=== PATIENT | male | born 1930 | race Caucasian/White ===

== ENCOUNTER 2016-11-26 16:31 | Inpatient (IN) | payer MEDICARE ==
[~2016-11-26] VITALS: Ht 175.3 cm; Wt 80.0 kg
[2016-11-26] VITALS (25 sets, daily range): BP systolic 75–183; BP diastolic 43–94; PULSE 74–157; RESP 12–35; TEMP 98.1–104.1; O2SAT 85–100
[2016-11-26] MEDS ORDERED: DILTIAZEM HCL 25 MG/5 ML VIAL ONE (16:36)
[2016-11-26] MEDS ORDERED: PROPOFOL 1000 MG/100 ML INJ 100 ML ONE (16:47)
[2016-11-26 17:17] LABS: AUTOMATED NEUTROPHIL # 11.8 TH/MM3 (1.8-7.7); BASOPHIL # 0.2 TH/MM3 (0-0.2); BASOPHIL % 0.9 % (0.0-2.0); EOSINOPHIL # 0.1 TH/MM3 (0-0.4); EOSINOPHIL % 0.4 % (0.0-4.0); HEMO FLAGS DIFF FINAL; LYMPH % 17.9 % (9.0-44.0); MEAN CELL VOLUME 100.6 FL (80.0-100.0); MEAN CORPUSCULAR HEMOGLOBIN 34.1 PG (27.0-34.0); MEAN CORPUSCULAR HGB CONC 33.9 % (32.0-36.0); MONO % 10.9 % (0.0-8.0); NEUT % 69.9 % (16.0-70.0); PLATELET COUNT 204 TH/MM3 (150-450); RED BLOOD COUNT 5.07 MIL/MM3 (4.50-5.90); RED CELL DISTRIBUTION WIDTH 13.9 % (11.6-17.2); WHITE BLOOD COUNT 16.9 TH/MM3 (4.0-11.0)
--- NOTE | 2016-11-26 17:18 | RADRPT ---
EXAM DATE/TIME: 11/26/2016 16:50 [facility] COMPARISON: No previous studies available for comparison. INDICATIONS : Chest pain, status post intubation MEDICAL HISTORY : None. SURGICAL HISTORY : None. ENCOUNTER: Initial ACUITY: 1 day PAIN SCORE: Non-responsive. LOCATION: Bilateral chest FINDINGS: 2 AP supine portable views of the chest were obtained and demonstrate an endotracheal tube in place w ith the tip approximately 5 cm above the alden. There is mild hazy opacity in both lung bases with n o focal consolidation or effusion. The heart size is within normal limits. There are mild atheroscler otic changes in the aorta. CONCLUSION: 1. Endotracheal tube in place. 2. Hazy infrahilar infiltrate bilaterally. Lewis Jose MD on November 26, 2016 at 17:15 Board Certified Radiologist. This report was verified electronically.
[2016-11-26] MEDS ORDERED: LORazepam 2 MG/ML VIAL IV PUSH ONE ×3 (17:30→20:00)
[2016-11-26] MEDS ORDERED: fentaNYL DRIP 250 ML ONE (17:30)
[2016-11-26] MEDS ORDERED: VANCOMYCIN INJ 1,000 MG in SODIUM CHLOR 0.9% 250 ML INJ 250 ML IV ONE (17:30)
[2016-11-26] MEDS ORDERED: PIPERACIL-TAZO 3.375 GM PREMIX 50 ML IV ONE (17:30)
[2016-11-26] MEDS ORDERED: ACETAMINOPHEN 650 MG SUPP RECTAL ONE (17:30)
[2016-11-26 17:35] LABS: APTT (PATIENT) 24.8 SEC (24.3-30.1); PROTHROMBIN TIME - PATIENT 11.4 SEC (9.8-11.6)
--- NOTE | 2016-11-26 17:40 | PD ---
HPI Chief Complaint: Respiratory Distress Time Seen by Provider: 16:46 Travel History International Travel<30 days: No Contact w/Intl Traveler<30days: No Traveled to known affect area: No History of Present Illness HPI Elderly male with PMH of PAD, COPD presents to the ED with c/o sob since 3pm today. Pt was brought in by [facility] with sob and was diaphoresis. STEMI was called by [facility] because of LBBB and unknown if it was new or not. Pt denies any chest pain but was very tachypneic. Pt was not tolerating BIPAP and HR was 150s. Cardizem 20mg IV was given and HR was down to 120s. Repeat EKG showed sinus tachycardia at 120 with LBBB. Pt was emergently intubated in the ED. Sister came by later to give more history and denies any n/v, abdominal pain, weakness or numbness. PFSH Past Medical History Medical History: Unable to Obtain Past Surgical History Surgical History: Unable to Obtain Social History Alcohol Use: No Tobacco Use: No Substance Use: No Allergies-Medications (Allergen,Severity, Reaction): Coded Allergies: No Known Allergies (Unverified , 11/26/16) Review of Systems Except as stated in HPI: all other systems reviewed are Neg Physical Exam Narrative GENERAL: Elderly male in severe distress. SKIN: Warm and diaphoretic. HEAD: Atraumatic. Normocephalic. EYES: Pupils equal and round. No scleral icterus. No injection or drainage. ENT: No nasal bleeding or discharge. Mucous membranes pink and moist. NECK: Trachea midline. No JVD. CARDIOVASCULAR: Regular rate and rhythm. No murmur appreciated. RESPIRATORY: + accessory muscle use. Pt is tachypneic, unable to speak more than a word at a time. Still feel sob after BIPAP. GASTROINTESTINAL: Abdomen soft, non-tender, nondistended. No rebound tenderness or guarding. MUSCULOSKELETAL: No obvious deformities. No clubbing. No cyanosis. No edema. NEUROLOGICAL: Awake and alert. No obvious cranial nerve deficits. Data Data Last Documented VS Vital Signs Date Time Temp Pulse Resp B/P Pulse Ox O2 Delivery O2 Flow Rate FiO2 11/26/16 18:45 83 18 91/55 98 Ventilator 11/26/16 17:19 104.1 11/26/16 16:50 100 Orders Diltiazem Inj (Cardizem Inj) (11/26/16 16:36) Propofol 1000 Mg/100 Ml Inj (Diprivan 10 (11/26/16 16:47) Electrocardiogram (11/26/16 16:48) Basic Metabolic Panel (Bmp) (11/26/16 16:48) Ckmb (Isoenzyme) Profile (11/26/16 16:48) Complete Blood Count With Diff (11/26/16 16:48) Magnesium (Mg) (11/26/16 16:48) Prothrombin Time / Inr (Pt) (11/26/16 16:48) Act Partial Throm Time (Ptt) (11/26/16 16:48) Troponin I (11/26/16 16:48) Chest, Single Ap (11/26/16 16:48) Ecg Monitoring (11/26/16 16:48) Bilateral Bp Monitoring (11/26/16 16:48) Iv Access Insert/Monitor (11/26/16 16:48) Oximetry (11/26/16 16:48) Oxygen Administration (11/26/16 16:48) B-Type Natriuretic Peptide (11/26/16 16:53) Blood Culture (11/26/16 16:53) Lactic Acid Sepsis Protocol (11/26/16 16:53) Neurological Rass Scale Q30MX2,Q2HX4,Q4H (11/26/16 17:28) Fentanyl Drip (Fentanyl Drip) (11/26/16 17:30) Lorazepam Inj (Ativan Inj) (11/26/16 17:30) Vancomycin Inj (Vancomycin Inj) (11/26/16 17:30) Piperacil-Tazo 3.375 Gm Premix (Zosyn 3. (11/26/16 17:30) Acetaminophen Supp (Tylenol Supp) (11/26/16 17:30) Fentanyl Drip (Fentanyl Drip) (11/26/16 17:30) Sodium Chlor 0.9% 1000 Ml Inj (Ns 1000 M (11/26/16 17:45) Sodium Chlor 0.9% 1000 Ml Inj (Ns 1000 M (11/26/16 17:45) Arterial Blood Gas (Abg) (11/26/16 17:45) CKMB (11/26/16 16:40) CKMB% (11/26/16 16:40) Norepinephrine Inj (Levophed Inj) (11/26/16 17:47) Ed Poc Ultrasound (11/26/16 ) Sodium Chloride 0.9% Flush (Ns Flush) (11/26/16 21:00) Sodium Chloride 0.9% Flush (Ns Flush) (11/26/16 17:45) Aspirin (Aspirin) (11/26/16 20:00) Aspirin Ec (Ecotrin Ec) (11/27/16 09:00) Clopidogrel (Plavix) (11/26/16 17:45) Clopidogrel (Plavix) (11/27/16 09:00) Heparin Infusion DIAMANTE.Q1H (11/26/16 17:43) Heparin Inj (Heparin Inj) (11/26/16 23:45) Heparin Inj (Heparin Inj) (11/26/16 23:45) Heparin-D5w Inj (Heparin-D5w Inj) (11/26/16 17:45) Act Partial Throm Time (Ptt) (11/26/16 17:43) Cbc No Diff, Includes Plts (11/26/16 17:43) Cbc No Diff, Includes Plts (11/29/16 06:00) Act Partial Throm Time (Ptt) (11/27/16 00:43) Occult Blood (Hemoccult) Stool (11/26/16 17:43) Echo 2d Comp W/Dopp(Routine) (11/26/16 ) Electrocardiogram (11/26/16 17:02) Chest, Single Ap (11/26/16 ) Admit Order (Ed Use Only) (11/26/16 18:49) Atorvastatin (Lipitor) (11/26/16 21:00) Labs Laboratory Tests Test 11/26/16 11/26/16 16:40 17:43 White Blood Count 16.9 TH/MM3 Red Blood Count 5.07 MIL/MM3 Hemoglobin 17.3 GM/DL Hematocrit 51.0 % Mean Corpuscular Volume 100.6 FL Mean Corpuscular Hemoglobin 34.1 PG Mean Corpuscular Hemoglobin 33.9 % Concent Red Cell Distribution Width 13.9 % Platelet Count 204 TH/MM3 Mean Platelet Volume 9.3 FL Neutrophils (%) (Auto) 69.9 % Lymphocytes (%) (Auto) 17.9 % Monocytes (%) (Auto) 10.9 % Eosinophils (%) (Auto) 0.4 % Basophils (%) (Auto) 0.9 % Neutrophils # (Auto) 11.8 TH/MM3 Lymphocytes # (Auto) 3.0 TH/MM3 Monocytes # (Auto) 1.8 TH/MM3 Eosinophils # (Auto) 0.1 TH/MM3 Basophils # (Auto) 0.2 TH/MM3 CBC Comment DIFF FINAL Differential Comment Prothrombin Time 11.4 SEC Prothromb Time International 1.0 RATIO Ratio Activated Partial 24.8 SEC Thromboplast Time Sodium Level 139 MEQ/L Potassium Level 3.5 MEQ/L Chloride Level 100 MEQ/L Carbon Dioxide Level 24.2 MEQ/L Anion Gap 15 MEQ/L Blood Urea Nitrogen 17 MG/DL Creatinine 1.56 MG/DL Estimat Glomerular Filtration 39 ML/MIN Rate Random Glucose 248 MG/DL Lactic Acid Level 6.0 mmol/L Calcium Level 9.1 MG/DL Magnesium Level 2.3 MG/DL Total Creatine Kinase 134 U/L Creatine Kinase MB 8.5 NG/ML Troponin I 2.02 NG/ML B-Type Natriuretic Peptide 458 PG/ML Blood Gas Puncture Site RT RADIAL Blood Gas Patient Temperature 98.6 Blood Gas HCO3 19 mmol/L Blood Gas Base Excess -5.7 mmol/L Blood Gas Oxygen Saturation 95 % Arterial Blood pH 7.31 Arterial Blood Partial 39 mmHg Pressure CO2 Arterial Blood Partial 129 mmHG Pressure O2 Arterial Blood Oxygen Content 20.6 Vol % Arterial Blood 2.1 % Carboxyhemoglobin Arterial Blood Methemoglobin 1.9 % Blood Gas Hemoglobin 15.3 G/DL Oxygen Delivery Device VENTILATOR Blood Gas Ventilator Setting PRVC/AC Blood Gas Inspired Oxygen 100 % MDM Medical Decision Making Medical Screen Exam Complete: Yes Emergency Medical Condition: Yes Differential Diagnosis Sepsis secondary to PNA vs. ACS Narrative Course Elderly male came in diaphoretic and in severe sob. Pt not tolerating BIPAP and HR was in the 150s which decreased with cardizem 20mg IV. Pt still very sob after decreased in heart rate. Coarse breath sounds bilaterally. Pt emergently intubated. Rectal temp was 104F and pt given NS IVF which decreased HR and we can see that it is sinus after the decreased. STEMI alert called by [facility] because of LBBB that we dont know is new or not. Discussed with Dr. Hassan who came to evaluate the patient. Labs reviewed, leukocytosis at 16.9. Lactic acid at 6.0. Troponin elevated at 2.02, can be from sepsis or NSTEMI. Dr. Hassan recommended plavix, aspirin and heparin drip which he ordered. Pt's blood pressure was low at 70s/40s while receiving 2 liters of NS so central line placed in right IJ and NE started. BP improved after NE. Pt given broad spectrum antibiotics vancomycin and zosyn and NS IVF x3. Discussed with Dr. Driver and accepted to ICU. Repeat CXR after central line placement showed IJ in tip of superior vena cava. No PTX. Critical Care Narrative Aggregate critical care time was 60 minutes. Time to perform other separately billable procedures was not included in the critical care time. My time did not include minutes spent treating any other patients simultaneously or on activities that did not directly contribute to the patient's treatment. The services I provided to this patient were to treat and/or prevent clinically significant deterioration that could result in: cardiovascular collapse or . I provided critical care services requiring my management, as noted below: Chart data review, documentation time, medication orders and management, vital sign assessments/reviewing monitor data, ordering and reviewing lab tests, ordering and interpreting/reviewing x-rays and diagnostic studies, care of the patient and discussion of the patient with the admitting physicians. Procedures Procedure Narrative CENTRAL VENOUS LINE: The site was prepped with Betadine and sterilely draped. It was infiltrated with 1% lidocaine plain. The deep vein was cannulated using normal Seldinger technique. A triple lumen central line was placed in the right IJ site and secured with stat lock. The site was sterilely dressed. The patient tolerated the procedure well. The patient was put in optimal position for the procedure. Rapid sequence intubation was initiated by me using 20 milligrams of etomidate IV and 150milligrams of succinylcholine IV. The patient was intubated with a 7.5 cuffed endotracheal tube. Tube placement was confirmed by visualization of the tube and balloon passing through the cords, capnometry and subsequent chest x-ray. Breath sounds were equal and well aerated bilaterally postintubation. No breath sounds over stomach. Patient tolerated procedure well. Diagnosis Primary Impression: Septic shock Admitting Information Admitting Physician Requests: Marisa Rodríguez DO Nov 26, 2016 17:40
[2016-11-26 17:42] LABS: ANION GAP 15 MEQ/L (5-15); BICARBONATE 24.2 MEQ/L (21.0-32.0); BLOOD UREA NITROGEN 17 MG/DL (7-18); CHLORIDE 100 MEQ/L (98-107); CREATINE KINASE 134 U/L (39-308); GLOMERULAR FILTRATION RATE 39 ML/MIN (>89); MAGNESIUM 2.3 MG/DL (1.5-2.5); SODIUM (NA) 139 MEQ/L (136-145)
[2016-11-26 17:45] LABS: POTASSIUM 3.5 MEQ/L (3.5-5.1)
[2016-11-26] MEDS ORDERED: CLOPIDOGREL 300 MG TAB PO SCH (17:45)
[2016-11-26] MEDS ORDERED: SODIUM CHLORIDE 0.9% FLUSH 5 ML FLUSH IVF PRN (17:45)
[2016-11-26] MEDS ORDERED: SODIUM CHLOR 0.9% 1000 ML INJ 1,000 ML IV ONE ×3 (17:45→20:00)
[2016-11-26] MEDS ORDERED: NOREPINEPHRINE 4 MG/4 ML AMP ONE (17:47)
[2016-11-26 17:48] LABS: BLOOD GAS BASE EXCESS -5.7 mmol/L (-2-2); BLOOD GAS CARBOXYHEMOGLOBIN 2.1 % (0-4); BLOOD GAS HCO3 19 mmol/L (22-26); BLOOD GAS METHEMOGLOBIN 1.9 % (0-2); BLOOD GAS O2 HGB SATURATION 95 % (90-100); BLOOD GAS OXYGEN CONTENT 20.6 Vol % (12.0-20.0); BLOOD GAS PCO2 39 mmHg (38-42); BLOOD GAS PO2 129 mmHG (61-120); BLOOD GAS TOTAL HGB 15.3 G/DL (12.0-16.0); CRITICAL VALUE NO; OXYGEN DEVICE VENTILATOR; TEMP CORR TO 98.6
[2016-11-26 17:49] LABS: DRAW SITE RT RADIAL; FIO2 100 %; NUMBER OF ARTERIAL PUNCTURES 1; STAT YES; ULNAR PULSE PRESENT; VENT SETTINGS PRVC/AC
[2016-11-26 17:58] LABS: CKMB 8.5 NG/ML (0.5-3.6)
[2016-11-26] MEDS: SODIUM CHLOR 0.9% 1000 ML INJ 1,000 ML IV SCH (18:51)
[2016-11-26] MEDS ORDERED: CHLORHEXIDINE GLUCONATE 2 % 1 PACK (2 CLOTHS) TOP PRN (19:00)
[2016-11-26] MEDS ORDERED: ACETAMINOPHEN 325 MG TAB PO PRN (19:00)
[2016-11-26] MEDS ORDERED: PROPOFOL 1000 MG/100 ML INJ 100 ML IV SCH (19:00)
[2016-11-26] MEDS ORDERED: MISCELLANEOUS NURSING INFORMATION XX SCH (19:00)
[2016-11-26] MEDS ORDERED: Vancomycin Consult Pharmacy 1 EA XX SCH (19:00)
[2016-11-26] MEDS ORDERED: VANCOMYCIN INJ 1,000 MG in SODIUM CHLOR 0.9% 250 ML INJ 250 ML IV SCH (19:00)
--- NOTE | 2016-11-26 19:03 | RADRPT ---
EXAM DATE/TIME: 11/26/2016 18:27 [facility] COMPARISON: CHEST SINGLE AP, November 26, 2016, 16:50. INDICATIONS : Post central line placment. MEDICAL HISTORY : Hypertension. Aneurysm, abdominal. SURGICAL HISTORY : CABG. ENCOUNTER: Initial ACUITY: 1 day PAIN SCORE: Non-responsive. LOCATION: Bilateral chest FINDINGS: Patchy perihilar and basilar consolidation again noted. I don't see a pneumothorax. No large effusion . There is now a right IJ central venous catheter with tip in the superior vena cava. Nasogastric tube now courses into the stomach. There is an unchanged endotracheal tube with tip about 5 cm above the c geoff. CONCLUSION: 1. No nasogastric tube and right IJ central venous catheter. The internal jugular central venous cath eter has its tip in the superior vena cava. 2. Unchanged endotracheal tube tip about 5 cm above the alden. 3. Patchy airspace opacities, mainly perihilar and basilar again noted. Deuce Persaud MD on November 26, 2016 at 19:00 Board Certified Radiologist. This report was verified electronically.
[2016-11-26 19:09] LABS: LACTIC ACID GHOST NOT REPORTABLE
--- NOTE | 2016-11-26 19:13 | MB ---
cc: COLE DOS SANTOS DO DATE OF CONSULTATION: 11/26/2016. REASON FOR CONSULTATION: STEMI alert. HISTORY OF PRESENT ILLNESS: Deuce Whitley is an elderly gentleman, probably in his 80s, who presented to the [facility] Emergency Room on November 26, 2016 complaining of shortness of breath. He was originally a Deuce Brambila as he was significantly tachypneic and was placed on BiPAP and then intubated. EKG on original assessment by [facility] showed a left bundle branch block and this was called per their protocol a STEMI alert. I was called emergently to see the patient for consideration of possible S-T elevation myocardial infarction. Original EKG shows sinus tachycardia with a left bundle branch block. Repeat EKG shows sinus tachycardia with a left bundle branch block. While here, his sister showed up and she relayed some more of his history as no history was known before this. They both woke up with somewhat of a cold. He did not feel significantly short of breath all day. He never complained of fevers or chills. He did not notice chest pain at all. His sister states that the patient recently lost his . He is originally from [place], [place] and came down to get away from everything for a little while. She went out for an hour and then came back and he was struggling the chair and felt that his legs gave out. He was also significantly short of breath and at that time he called [facility] to bring him to the emergency room. On seeing him, he currently on the ventilator but starting to wake up. I did speak to him briefly and he states that he is not having any chest pain at this time. He also appears to be significantly diaphoretic and temperature taken rectally while in the room was 104. PAST MEDICAL HISTORY: (Incomplete but information obtained per the sister): 1. Peripheral artery disease. 2. COPD 3. Peripheral artery disease. 4. The patient denies any history of heart disease. PAST SURGICAL HISTORY: 1. Femoral-femoral bypass. 2. Sacral decubitus debridement. ALLERGIES: UNKNOWN AT THIS TIME. MEDICATIONS: Unknown at this time. FAMILY HISTORY: Unknown at this time. SOCIAL HISTORY: Unknown at this time. REVIEW OF SYSTEMS: Unable to obtain other than above due to the patient's condition but positive for shortness of breath, diaphoresis. Denies chest pain. PHYSICAL EXAMINATION: VITAL SIGNS: Temperature 104 (rectal), heart rate 105, blood pressure 90/51, respirations 12, pulse ox 98% on the ventilator. GENERAL: In general, the patient is awake and able to answer "yes" and "no" to simple questions while on the ventilator. HEAD, EYES, EARS, NOSE, THROAT: Extraocular muscles intact. Mucous membranes somewhat dry. ET tube in place. NECK: Neck is supple. No JVD at 45 degrees. No carotid bruits heard bilaterally. HEART: Heart is tachycardiac positive for positive first and second heart sounds with no murmurs noted at this time. LUNGS: Lungs have decreased breath sounds bilaterally with rhonchi noted. ABDOMEN: Abdomen is in the soft, nontender, nondistended. No organomegaly noted. EXTREMITIES: Show no clubbing, cyanosis or edema. Femoral pulses intact bilaterally. NEUROLOGIC: Able to move all four extremities. PSYCHOLOGIC: He was unable to determine at this time. SKIN: Hot. Diaphoretic. OSTEOPATHIC: Osteopathically, no kyphoscoliosis, lordosis or paraspinal tender points. LABORATORY FINDINGS: White blood cells 16.9, hemoglobin 17.3, hematocrit 51.0, platelets 204,000. Lactic acid 6.0. EKGS: Electrocardiogram (November 26, 2016 at 1702): Sinus tachycardia with a left bundle branch block showing no concordance or discordance concerning for ischemia. IMPRESSION: 1. Sepsis most likely from a respiratory standpoint with bilateral infiltrates 2. Fever due to sepsis. 3. Shortness of breath due to bilateral pneumonia. 4. Vent-dependent respiratory failure. 5. Left bundle branch block originally called for a STEMI alert, most likely due to possible elevated raised heart rate versus chronic in nature from degeneration of the cardioelectric system. 6. Bilateral pneumonia. 7. Peripheral artery disease. 8. COPD. RECOMMENDATIONS: 1. Supportive care per the critical care team for vent-dependent respiratory failure and sepsis. 2. Sepsis most likely due to a respiratory cause. 3. Most likely will have an elevated troponin due to sepsis. 4. We will check a 2-D echo to look at his overall left ventricular function, cardiac structure and possible valvulopathies. 5. As far as possible NSTEMI we will place him on aspirin, Plavix and heparin. At this time, we are unable to place him on beta blockade due to hypotension. Thank you for allowing me to see Deuce Whitley. If there are any questions, please do not hesitate to call. Cole PEARSON/HARMONY /5:24 PM /7:00 PM
[2016-11-26] MEDS: fentaNYL DRIP 250 ML IV SCH (19:24)
[2016-11-26] MEDS ORDERED: SODIUM BICARBONATE 8.4% INJ 50 MEQ/50 ML SYR IV PUSH ONE ×2 (19:30)
[2016-11-26] MEDS: HEPARIN-D5W INJ 250 ML IV SCH (19:53)
[2016-11-26 19:58] LABS: BLOOD GAS BASE EXCESS -2.1 mmol/L (-2-2); BLOOD GAS CARBOXYHEMOGLOBIN 2.2 % (0-4); BLOOD GAS HCO3 23 mmol/L (22-26); BLOOD GAS METHEMOGLOBIN 1.9 % (0-2); BLOOD GAS O2 HGB SATURATION 93 % (90-100); BLOOD GAS OXYGEN CONTENT 18.6 Vol % (12.0-20.0); BLOOD GAS PCO2 47 mmHg (38-42); BLOOD GAS PO2 105 mmHG (61-120); BLOOD GAS TOTAL HGB 14.1 G/DL (12.0-16.0); CRITICAL VALUE NO; OXYGEN DEVICE VENTILATOR; TEMP CORR TO 98.6
[2016-11-26 19:59] LABS: DRAW SITE LT RADIAL; FIO2 100 %; NUMBER OF ARTERIAL PUNCTURES 2; STAT NO; ULNAR PULSE Y; VENT SETTINGS PRVC 12/550/1.0IT/5+
[2016-11-26] MEDS: RESP: ALBUTEROL 2.5 MG/IPRATROPIUM 0.5 MG NEB (SCH) INH ×2 (20:00→22:57)
[2016-11-26] MEDS ORDERED: SUCCINYLCHOLINE CHLORIDE 200 MG/10 ML VIAL IV PUSH ONE (20:00)
[2016-11-26] MEDS: AZITHROMYCIN INJ 500 MG in SODIUM CHLOR 0.9% 250 ML INJ 250 ML IV SCH (20:00)
[2016-11-26] MEDS ORDERED: ETOMIDATE 20 MG/10 ML VIAL IV PUSH ONE (20:00)
[2016-11-26] MEDS ORDERED: ASPIRIN 325 MG TAB PO SCH (20:00)
[2016-11-26] MEDS: methylPREDNISolone SOD SUCC 40 MG/1 ML VIAL IV SCH (20:00)
[2016-11-26] MEDS ORDERED: DILTIAZEM HCL 25 MG/5 ML VIAL IV ONE (20:00)
--- NOTE | 2016-11-26 20:47 | HHI.HP ---
HPI Service Critical Care Medicine Primary Care Physician Non-Staff Admission Diagnosis Septic shock Diagnosis: Travel History International Travel<30 Days: No Contact w/Intl Traveler <30 Da: No Traveled to Known Affected Are: No History of Present Illness Elderly male with PAD, COPD presents to the ED with shortnes of breath since 3pm today. STEMI was called because of LBBB and unknown duration. Patient denied any chest pain but was very tachypneic. He was emergently intubated in the ED. Review of Systems ROS Unable to obtain patient is sedated and intubated Past Family Social History Allergies: Coded Allergies: No Known Allergies (Unverified , 11/26/16) Past Medical History 1. Peripheral artery disease. 2. COPD 3. The patient denies any history of heart disease. Past Surgical History 1. Femoral-femoral bypass. 2. Sacral decubitus debridement. Reported Medications Unable to obtain patient is sedated and intubated Active Ordered Medications Current Medications Medications (Trade) Dose Ordered Sig/Lopez Route PRN Reason Start Time Stop Time Status Last Admin Dose Admin Fentanyl Citrate (fentaNYL DRIP) 250 ml @ 0 mls/hr TITRATE IV 11/26/16 17:30 11/26/16 19:24 Aspirin (Aspirin) 325 mg NOW PO 11/26/16 20:00 11/27/16 19:59 Aspirin (Ecotrin Ec) 81 mg DAILY PO 11/27/16 09:00 Clopidogrel Bisulfate (Plavix) 300 mg ONCE PO 11/26/16 17:45 11/27/16 17:44 Clopidogrel Bisulfate (Plavix) 75 mg DAILY PO 11/27/16 09:00 Atorvastatin Calcium (Lipitor) 80 mg HS PO 11/26/16 21:00 Heparin Sodium (Porcine) (Heparin Inj) 5,000 units UNSCH PRN IV APTT LESS THAN 25 11/26/16 23:45 Heparin Sodium (Porcine) 2500 units 2,500 units UNSCH PRN IV APTT 25 TO 39 11/26/16 23:45 Heparin Sodium/ Dextrose 250 ml @ 0 mls/hr TITRATE IV 11/26/16 17:45 11/26/16 19:53 Piperacillin Sod/ Tazobactam Sod 100 ml @ 200 mls/hr Q6H IV 11/27/16 02:00 Azithromycin 500 mg/Sodium Chloride 250 ml @ 250 mls/hr Q24H IV 11/26/16 20:00 Pharmacy Profile Note (Vancomycin Consult Pharmacy) 0 ml @ 0 mls/hr UNSCH XX 11/26/16 19:00 Methylprednisolone Sodium Succinate 40 mg 40 mg Q12H IV 11/26/16 20:00 Sodium Chloride (NS 1000 ml Inj) 1,000 ml @ 125 mls/hr Q8H IV 11/26/16 18:51 IV Flush (NS Flush) 2 ml UNSCH PRN IV FLUSH FLUSH AFTER USING IV ACCESS 11/26/16 19:00 IV Flush (NS Flush) 2 ml BID IV FLUSH 11/26/16 21:00 Acetaminophen (Tylenol) 650 mg Q6H PRN PO PAIN 1-10 AND/OR FEVER >101F 11/26/16 19:00 Famotidine (Pepcid Inj) 20 mg Q12HR IV PUSH 11/26/16 21:00 Lorazepam (Ativan Inj) 1 mg Q1H PRN IV Agitation/Sedation 11/26/16 19:00 Artificial Tears (Tears Naturale Opth Soln) 1 drop TID EACH EYE 11/27/16 09:00 Docusate Sodium (Colace Liq) 100 mg Q12H G-TUBE 11/26/16 21:00 Miscellaneous Information 1 Q361D XX 11/26/16 19:00 Chlorhexidine Gluconate (Chlorhexidine 2% Cloth) 3 pack Taper DAILY@04 TOP 11/27/16 04:00 11/23/17 03:59 Chlorhexidine Gluconate 3 pack 3 pack UNSCH PRN TOP HYGIENIC CARE 11/26/16 19:00 Propofol (Diprivan 1000 Mg/100ml Inj) 100 ml @ 0 mls/hr TITRATE IV 11/26/16 19:00 11/26/16 19:25 Family History Unable to obtain patient is sedated and intubated Social History Unable to obtain patient is sedated and intubated Physical Exam Vital Signs Vital Signs Date Time Temp Pulse Resp B/P Pulse Ox O2 Delivery O2 Flow Rate FiO2 11/26/16 20:25 75 12 93/51 99 Ventilator 11/26/16 20:15 74 12 94/50 98 Ventilator 11/26/16 20:05 75 12 91/53 99 Ventilator 11/26/16 19:57 77 12 90/51 99 Ventilator 11/26/16 19:40 76 12 93/54 99 Ventilator 11/26/16 19:38 78 12 89/52 98 Ventilator 11/26/16 19:36 99 100 11/26/16 19:25 79 12 85/50 97 Ventilator 11/26/16 19:10 77 12 76/43 99 Ventilator 11/26/16 18:45 83 18 91/55 98 Ventilator 11/26/16 18:15 86 12 138/63 98 Ventilator 11/26/16 17:45 100 12 75/45 98 Ventilator 11/26/16 17:19 104.1 105 12 90/51 98 Ventilator 11/26/16 17:15 112 12 84/49 99 Ventilator 11/26/16 16:55 12 99 Ventilator 11/26/16 16:50 94 100 11/26/16 16:50 125 18 183/85 98 Room Air 11/26/16 16:45 30 98 CPAP 11/26/16 16:44 100 11/26/16 16:34 157 35 121/94 85 11/26/16 16:30 98 100 Laboratory Laboratory Tests Test 11/26/16 11/26/16 11/26/16 11/26/16 16:40 17:43 19:21 19:53 White Blood Count 16.9 Red Blood Count 5.07 Hemoglobin 17.3 Hematocrit 51.0 Mean Corpuscular Volume 100.6 Mean Corpuscular Hemoglobin 34.1 Mean Corpuscular Hemoglobin 33.9 Concent Red Cell Distribution Width 13.9 Platelet Count 204 Mean Platelet Volume 9.3 Neutrophils (%) (Auto) 69.9 Lymphocytes (%) (Auto) 17.9 Monocytes (%) (Auto) 10.9 Eosinophils (%) (Auto) 0.4 Basophils (%) (Auto) 0.9 Neutrophils # (Auto) 11.8 Lymphocytes # (Auto) 3.0 Monocytes # (Auto) 1.8 Eosinophils # (Auto) 0.1 Basophils # (Auto) 0.2 CBC Comment DIFF FINAL Differential Comment Prothrombin Time 11.4 Prothromb Time International 1.0 Ratio Activated Partial 24.8 Thromboplast Time Sodium Level 139 Potassium Level 3.5 Chloride Level 100 Carbon Dioxide Level 24.2 Anion Gap 15 Blood Urea Nitrogen 17 Creatinine 1.56 Estimat Glomerular Filtration 39 Rate Random Glucose 248 Lactic Acid Level 6.0 2.6 Calcium Level 9.1 Magnesium Level 2.3 Total Creatine Kinase 134 Creatine Kinase MB 8.5 Troponin I 2.02 B-Type Natriuretic Peptide 458 Blood Gas Puncture Site RT RADIAL LT RADIAL Blood Gas Patient Temperature 98.6 98.6 Blood Gas HCO3 19 23 Blood Gas Base Excess -5.7 -2.1 Blood Gas Oxygen Saturation 95 93 Arterial Blood pH 7.31 7.31 Arterial Blood Partial 39 47 Pressure CO2 Arterial Blood Partial 129 105 Pressure O2 Arterial Blood Oxygen Content 20.6 18.6 Arterial Blood 2.1 2.2 Carboxyhemoglobin Arterial Blood Methemoglobin 1.9 1.9 Blood Gas Hemoglobin 15.3 14.1 Oxygen Delivery Device VENTILATOR VENTILATOR Blood Gas Ventilator Setting PRVC/AC PRVC 12/550/1.0IT/5+ Blood Gas Inspired Oxygen 100 100 Date/Time Procedure Status Source Growth 11/26/16 16:45 Aerobic Blood Culture Received Blood Peripheral Pending 11/26/16 16:45 Anaerobic Blood Culture Received Blood Peripheral Pending Result Diagram: 11/26/16 1640 11/26/16 1640 Imaging Last 24 hours Impressions Chest X-Ray 11/26/16 1648 Signed Impressions: Service Date/Time: November 16:50 - CONCLUSION: 1. Endotracheal tube in place. 2. Hazy infrahilar infiltrate bilaterally. Lewis Jose MD Chest X-Ray 11/26/16 0000 Signed Impressions: Service Date/Time: November 18:27 - CONCLUSION: 1. No nasogastric tube and right IJ central venous catheter. The internal jugular central venous catheter has its tip in the superior vena cava. 2. Unchanged endotracheal tube tip about 5 cm above the alden. 3. Patchy airspace opacities , mainly perihilar and basilar again noted. Deuce Persaud MD Septic Shock Reassessment Lungs: Course Peripheral Pulses: Bounding Right Radial Bounding Left Radial Assessment and Plan Assessment and Plan Respiratory failure - mechanical ventilation - CXR and ABG a.m. - vent bundle Pneumonia - Zosyn/Azythro/Vanco - Pseudomonas coverage - severe COPD - f/u cultures and de-escalate per sensitivity Sepsis - due to above - broad spectrum ATB - follow up cultures - central line - Levophed to keep MAP > 65 STEMI - EKG LBBB - cardiologty appreciated - Heparin gtt - further per Card. COPD - exacerbation - i.v. steroids - Aerosols - ATB DVT/GI prophylaxis - Heparin gtt/Pepcid Critical Care: The total critical care time was 35 minutes. Time to perform other separately billable procedures was not included in the critical care time. Azael Driver MD Nov 26, 2016 20:47
[2016-11-26] MEDS: SODIUM CHLORIDE 0.9% FLUSH 5 ML FLUSH IV FLUSH SCH (21:00)
[2016-11-26] MEDS: ATORVASTATIN 80 MG TAB PO SCH (21:00)
[2016-11-26] MEDS: DOCUSATE SODIUM 100 MG/10 ML UDC G-TUBE SCH (21:00)
[2016-11-26] MEDS: FAMOTIDINE 20 MG/2 ML VIAL IV PUSH SCH (21:00)
[2016-11-26] MEDS ORDERED: SODIUM CHLORIDE 0.9% FLUSH 5 ML FLUSH IVF SCH (21:00)
[2016-11-26] MEDS ORDERED: HEPARIN SODIUM - IV 10,000 UNITS/10 ML VIAL IV PRN ×2 (23:45)
[2016-11-27] VITALS (19 sets, daily range): BP systolic 103–137; BP diastolic 52–63; PULSE 60–74; RESP 12–18; TEMP 97.6–98.7; O2SAT 95–100
[2016-11-27] MEDS ORDERED: TERBUTALINE INJ 1 MG/ML AMP SQ PRN (01:00)
[2016-11-27] MEDS: PIPERACIL-TAZO 4.5 GM PREMIX 100 ML IV SCH ×4 (01:33→21:08)
[2016-11-27] MEDS: NOREPINEPHRINE-DEXTROSE DRIP 250 ML IV SCH ×2 (01:33→09:09)
[2016-11-27] MEDS: CHLORHEXIDINE GLUCONATE 2 % 1 PACK (2 CLOTHS) TOP SCH (01:34)
[2016-11-27] MEDS: SODIUM CHLOR 0.9% 1000 ML INJ 1,000 ML IV SCH ×3 (01:34→21:07)
[2016-11-27 03:19] LABS: APTT (PATIENT) 98.6 SEC (24.3-30.1)
[2016-11-27] MEDS: RESP: ALBUTEROL 2.5 MG/IPRATROPIUM 0.5 MG NEB (SCH) INH ×5 (03:37→19:57)
[2016-11-27 04:42] LABS: AUTOMATED NEUTROPHIL # 16.5 TH/MM3 (1.8-7.7); BASOPHIL % 0.2 % (0.0-2.0); HEMATOCRIT 42.7 % (39.0-51.0); HEMO FLAGS DIFF FINAL; LYMPH % 1.9 % (9.0-44.0); LYMPHOCYTE # 0.3 TH/MM3 (1.0-4.8); MEAN CELL VOLUME 98.2 FL (80.0-100.0); MEAN CORPUSCULAR HEMOGLOBIN 33.6 PG (27.0-34.0); MEAN CORPUSCULAR HGB CONC 34.2 % (32.0-36.0); MONO % 3.8 % (0.0-8.0); NEUT % 94.1 % (16.0-70.0); PLATELET COUNT 136 TH/MM3 (150-450); RED BLOOD COUNT 4.35 MIL/MM3 (4.50-5.90); RED CELL DISTRIBUTION WIDTH 13.5 % (11.6-17.2); WHITE BLOOD COUNT 17.5 TH/MM3 (4.0-11.0)
[2016-11-27 05:09] LABS: ALKALINE PHOSPHATASE 53 U/L (45-117); ALT (GPT) 41 U/L (12-78); ANION GAP 7 MEQ/L (5-15); AST (GOT) 287 U/L (15-37); BLOOD UREA NITROGEN 22 MG/DL (7-18); CHLORIDE 110 MEQ/L (98-107); GLOMERULAR FILTRATION RATE 46 ML/MIN (>89); POTASSIUM 3.8 MEQ/L (3.5-5.1); SODIUM (NA) 143 MEQ/L (136-145); TOTAL BILIRUBIN ADULT 0.9 MG/DL (0.2-1.0)
[2016-11-27 06:52] LABS: APTT (PATIENT) 68.6 SEC (24.3-30.1)
--- NOTE | 2016-11-27 08:04 | HHI.CCPN ---
Subjective Remarks/Hospital Course Elderly male with PAD, COPD presents to the ED with shortness of breath since 3pm today. STEMI was called because of LBBB and unknown duration. Patient denied any chest pain but was very tachypneic. He was emergently intubated in the ED. SUBJECTIVE: 11/27: Afebrile. Currently normal sinus rhythm. Sedated on the ventilator on propofol drip. Currently norepinephrine at 7 g a minute. Decreased urine output noted. Status post 3 L normal saline in ED. CVP pending. Objective Vital Signs Date Time Temp Pulse Resp B/P Pulse Ox O2 Delivery O2 Flow Rate FiO2 11/27/16 06:03 100 55 11/27/16 06:00 61 11/27/16 04:00 98.5 12 133/63 11/26/16 21:01 Ventilator Intake and Output 11/26/16 11/26/16 11/27/16 08:00 16:00 00:00 Intake Total 0 ml Balance 0 ml Result Diagram: 11/27/16 0415 11/27/16 0415 Other Results Microbiology Date/Time Procedure Status Source Growth 11/26/16 16:45 Aerobic Blood Culture Received Blood Peripheral Pending 11/26/16 16:45 Anaerobic Blood Culture Received Blood Peripheral Pending Imaging Last Impressions Chest X-Ray 11/26/16 1648 Signed Impressions: Service Date/Time: November 16:50 - CONCLUSION: 1. Endotracheal tube in place. 2. Hazy infrahilar infiltrate bilaterally. Lewis Jose MD Objective Remarks GENERAL: Elderly male, critically ill currently resting in bed in no acute distress SKIN: Cool and dry. HEAD: Atraumatic. Normocephalic. EYES: Pupils equal and round about 2 mm bilaterally and minimally reactive. No scleral icterus. No injection or drainage. ENT: No nasal bleeding or discharge. Mucous membranes pink and moist. Orotracheally intubated with OG tube in place NECK: Trachea midline. No appreciated JVD. Right IJ CVL clean dry and intact CARDIOVASCULAR: Regular rate and rhythm. S1, S2. No S4. Without murmurs RESPIRATORY: Coarse crackles appreciated bilaterally lobes. Breath sounds equal bilaterally. GASTROINTESTINAL: Abdomen slightly protuberant, nontender. Hypoactive bowel sounds are appreciated. Hepatic and splenic margins not palpable. MUSCULOSKELETAL: Extremities with trace bilateral lower extremity edema. No obvious deformities. NEUROLOGICAL: Currently on propofol and fentanyl drips. Withdrawals to pain in all 4 extremities. Positive gag. Positive corneal reflex. Urinary Catheter: Yes Assessment to: Continue Ochoa insert reason: Prolonged Immobilization Vascular Central Line Catheter: Yes Assessment to: Continue Date of Insertion: Nov 26, 2016 Line: Central Venous Catheter Side: Right Location: Internal, Jugular A/P Assessment and Plan Neuro/Psych: Currently on propofol/fentanyl drips for sedation/analgesia while intubated Goal of RASS -2 Daily sedation vacation CV: STEMI? With elevated troponin Left bundle branch block Shock - likely sepsis/rule out cardiogenic History of PAD? Lactic acidosis Currently norepinephrine 7 mcg/m to maintain MAP greater than 65 CVP pending Status post 3 L normal saline bolus Currently on normal saline at 125 cc an hour Trend lactic acid until cleared currently 2.[address] Hassan in ED. Currently on aspirin 81 mg daily, Plavix 75 mill grams daily after loaded with 300 mg 1 and Lipitor 80 mg daily. Echocardiogram pending Serial troponins pending. Resp: Acute hypoxemic respiratory failure likely secondary to community-acquired pneumonia History of COPD? [facility] 14/~550/11/12/49 Ventilator bundle Scheduled bronchodilator therapy every 4 hours and as needed Spontaneous breathing trials Follow-up chest x-ray in a.m. GI: Elevated AST - likely cardiac related Patient is currently Glucerna 1.5 goal 55 cc an hour. Pepcid for GI prophylaxis Colace/Senokot for bowel regimen Recheck CMP in a.m. Follow trends of AST : Ochoa has been placed for accurate I's and O's in a critically ill patient Endo: Hyperglycemia of critical illness Sliding-scale insulin with Accu-Cheks to maintain euglycemia. Moderate regimen Check hemoglobin A1c in a.m. Renal: Acute kidney injury Unknown baseline. Check renal ultrasound/urine lites/eosinophils. Monitor urine output.. Accurate I's and O's. Heme: Leukocytosis Thrombocytopenia Follow CBC daily. Monitor trends ID: Likely community-acquired pneumonia Day #2 Zosyn/Zithromax. Pertinent cultures 11/26 - blood cultures 2 - pending Pending UA/sputum/influenza MSK: History of sacral decubitus ulcer Decubitus prevention protocol initiated. PT evaluate and treat FEN: Replace electrolytes as clinically indicated Access - Right IJ CVL day #2 placed 11/26 Prophylaxis - GI - Pepcid - DVT - SCD/heparin drip Critical Care: The total critical care time was 45 minutes. Time to perform other separately billable procedures was not included in the critical care time. Resp iratory failure - mechanical ventilation - CXR and ABG a.m. - vent bundle Pneumonia - Zosyn/Azythro/Vanco - Pseudomonas coverage - severe COPD - f/u cultures and de-escalate per sensitivity Sepsis - due to above - broad spectrum ATB - follow up cultures - central line - Levophed to keep MAP > 65 STEMI - EKG LBBB - cardiologty appreciated - Heparin gtt - further per Card. COPD - exacerbation - i.v. steroids - Aerosols - ATB DVT/GI prophylaxis - Heparin gtt/Pepcid Critical Care: The total critical care time was 35 minutes. Time to perform other separately billable procedures was not included in the critical care time. Vinh Aparicio MD Nov 27, 2016 08:04
[2016-11-27] MEDS ORDERED: GLUCAGON 1 MG/ML VIAL OTHER PRN (08:15)
[2016-11-27] MEDS ORDERED: DEXTROSE 50% IN WATER 50 ML VIAL(D50) IV PUSH PRN (08:15)
[2016-11-27] MEDS: CHLORHEXIDINE 0.12% (ORAL KIT) 15 ML CUP MT SCH ×2 (08:57→21:08)
[2016-11-27] MEDS: DOCUSATE SODIUM 100 MG/10 ML UDC G-TUBE SCH ×2 (08:58→21:08)
[2016-11-27] MEDS: CLOPIDOGREL 75 MG TAB PO SCH (08:58)
[2016-11-27] MEDS: methylPREDNISolone SOD SUCC 40 MG/1 ML VIAL IV SCH ×2 (08:58→21:07)
[2016-11-27] MEDS: FAMOTIDINE 20 MG/2 ML VIAL IV PUSH SCH ×2 (08:59→21:09)
[2016-11-27] MEDS: SODIUM CHLORIDE 0.9% FLUSH 5 ML FLUSH IV FLUSH SCH ×2 (08:59→21:09)
[2016-11-27] MEDS: SODIUM CHLORIDE 0.9% FLUSH 5 ML FLUSH IV FLUSH PRN (08:59)
[2016-11-27] MEDS ORDERED: ASPIRIN EC 325 MG TABEC PO SCH (09:00)
[2016-11-27] MEDS: ARTIFICIAL TEARS OPTH SOLN 15 ML BTL EACH EYE SCH ×3 (09:00→18:00)
[2016-11-27] MEDS: SENNOSIDES SYRUP 8.8 MG/5 ML CUP PO/TUBE SCH ×2 (09:08→21:09)
[2016-11-27 10:09] LABS: BACTERIA, URINE FEW /hpf; BLOOD, URINE SMALL (NEG); GLUCOSE,URINE TRACE mg/dL (NEG); KETONE, URINE NEG (NEG); MUCUS URINE FEW /lpf (OCC); NITRITE,URINE NEG (NEG); PH, URINE 5.5 (5.0-8.5); SQUAMOUS EPITHELIAL CELL URINE <1 /hpf (0-5); URINE COLOR YELLOW (YELLW/STRAW)
[2016-11-27 10:11] LABS: COMMENT (UR) CATH-CULTURE IND; CULTURE IF INDICATED CATH CULTURE IND
--- NOTE | 2016-11-27 11:18 | RADRPT ---
EXAM DATE/TIME: 11/27/2016 09:38 [facility] COMPARISON: No previous studies available for comparison. INDICATIONS : Bilateral lower extremity swelling. MEDICAL HISTORY : Chronic obstructive pulmonary disease. Peripheral artery disease. SURGICAL HISTORY : Femoral-femoral bypass. Sacral decubitus debridement. ENCOUNTER: Initial ACUITY: 1 day PAIN SCORE: Non-responsive LOCATION: Bilateral leg. TECHNIQUE: Venous ultrasound of the left and right leg was performed from the inguinal ligament to the proximal calf. Real-time, color Doppler and spectral tracing, compression and augmentation techniques were us ed. FINDINGS: RIGHT LEG: There is normal compressibility of the deep venous system from the inguinal region to the proximal ca lf. No echogenic clot is seen in the lumen of the common femoral, femoral, popliteal, and posterior tibial veins. There is a normal response of the venous system to proximal and distal augmentation an d respiration. LEFT LEG: There is normal compressibility of the deep venous system from the inguinal region to the proximal ca lf. No echogenic clot is seen in the lumen of the common femoral, femoral, popliteal, and posterior tibial veins. There is a normal response of the venous system to proximal and distal augmentation an d respiration. CONCLUSION: Negative for deep venous thrombosis. Jeff Pringle MD FACR on November 27, 2016 at 11:14 Board Certified Radiologist. This report was verified electronically.
[2016-11-27 11:20] LABS: BLOOD GAS VENOUS BASE EXCESS -5.5 mmol/L (-2-2); BLOOD GAS VENOUS HCO3 20 mmol/L (22-26); BLOOD GAS VENOUS O2 CONTENT 14.7 Vol % (9.0-17.0); BLOOD GAS VENOUS O2 HGB SAT 79 % (70-76); BLOOD GAS VENOUS PCO2 43 mmHg (44-48); BLOOD GAS VENOUS PO2 48 mmHg (35-40); BLOOD GAS VENOUS pH 7.29 (7.360-7.400); TEMP CORR TO 98.6
[2016-11-27 11:21] LABS: CRITICAL VALUE YES; DRAW SITE CLINE; FIO2 50 %; OXYGEN DEVICE VENT; STAT NO; VENT SETTINGS PRVC/14/550/5PEEP
--- NOTE | 2016-11-27 11:25 | RADRPT ---
EXAM DATE/TIME: 11/27/2016 10:02 [facility] COMPARISON: No previous studies available for comparison. INDICATIONS : Increased BUN/creatinine. MEDICAL HISTORY : Chronic obstructive pulmonary disease. Peripheral artery disease. SURGICAL HISTORY : Femoral-femoral bypass. Sacral decubitus debridement. ENCOUNTER: Initial ACUITY: 1 day PAIN SCORE: Nonresponsive. LOCATION: Bilateral flank MEASUREMENTS: RIGHT KIDNEY: 11.7 x 5.9 x 5.2 cm LEFT KIDNEY: 11.6 x 5.3 x 6.7 cm FINDINGS: Ultrasound of the kidneys demonstrate normal size shape and echogenicity. No hydronephrosis or mass l esions are identified. There is a single simple cyst in the left kidney measuring 2.5 cm in the lowe r pole the areaThe bladder appears normal. No wall thickening or intraluminal masses are identified. CONCLUSION: 1. Unremarkable ultrasound examination of the kidneys. Amarjit Lua MD on November 27, 2016 at 11:15 Board Certified Radiologist. This report was verified electronically.
[2016-11-27] MEDS: INSULIN NovoLIN REGULAR SUPPLEMENTAL SCALE SQ SCH ×3 (11:31→21:00)
[2016-11-27 12:54] LABS: APTT (PATIENT) 91.7 SEC (24.3-30.1)
--- NOTE | 2016-11-27 13:20 | PD.CARD.PN ---
Subjective Subjective Remarks Awake on the vent, no chest abraham Objective Medications Current Medications Medications (Trade) Dose Ordered Sig/Lopez Route Start Time Stop Time Status Last Admin (fentaNYL DRIP) 250 ml @ 0 mls/hr TITRATE IV 11/26/16 17:30 11/26/16 19:24 (Aspirin) 325 mg NOW PO 11/26/16 20:00 11/27/16 19:59 (Ecotrin Ec) 81 mg DAILY PO 11/27/16 09:00 11/27/16 08:58 (Plavix) 300 mg ONCE PO 11/26/16 17:45 11/27/16 17:44 (Plavix) 75 mg DAILY PO 11/27/16 09:00 11/27/16 08:58 (Lipitor) 80 mg HS PO 11/26/16 21:00 (Heparin Inj) 5,000 units UNSCH PRN IV 11/26/16 23:45 Heparin Sodium (Porcine) 2500 units 2,500 units UNSCH PRN IV 11/26/16 23:45 Heparin Sodium/ Dextrose 250 ml @ 0 mls/hr TITRATE IV 11/26/16 17:45 11/26/16 19:53 Piperacillin Sod/ Tazobactam Sod 100 ml @ 200 mls/hr Q6H IV 11/27/16 02:00 11/27/16 08:57 Azithromycin 500 mg/Sodium Chloride 250 ml @ 250 mls/hr Q24H IV 11/26/16 20:00 11/26/16 20:00 (Vancomycin Consult Pharmacy) 0 ml @ 0 mls/hr UNSCH XX 11/26/16 19:00 Methylprednisolone Sodium Succinate 40 mg 40 mg Q12H IV 11/26/16 20:00 11/27/16 08:58 (NS 1000 ml Inj) 1,000 ml @ 125 mls/hr Q8H IV 11/26/16 18:51 11/27/16 08:58 (NS Flush) 2 ml UNSCH PRN IV FLUSH 11/26/16 19:00 11/27/16 08:59 (NS Flush) 2 ml BID IV FLUSH 11/26/16 21:00 11/27/16 08:59 (Tylenol) 650 mg Q6H PRN PO 11/26/16 19:00 (Pepcid Inj) 20 mg Q12HR IV PUSH 11/26/16 21:00 11/27/16 08:59 (Ativan Inj) 1 mg Q1H PRN IV 11/26/16 19:00 (Tears Naturale Opth Soln) 1 drop TID EACH EYE 11/27/16 09:00 (Colace Liq) 100 mg Q12H G-TUBE 11/26/16 21:00 11/27/16 08:58 Miscellaneous Information 1 Q361D XX 11/26/16 19:00 11/26/16 19:00 (Chlorhexidine 2% Cloth) 3 pack Taper DAILY@04 TOP 11/27/16 04:00 11/23/17 03:59 11/27/16 01:34 Chlorhexidine Gluconate 3 pack 3 pack UNSCH PRN TOP 11/26/16 19:00 Propofol 100 ml @ 0 mls/hr TITRATE IV 11/26/16 19:00 11/26/16 19:25 (Levophed-Dextrose Drip) 250 ml @ 0 mls/hr TITRATE IV 11/27/16 01:00 11/27/16 09:09 (Brethine Inj) 1 mg UNSCH PRN SQ 11/27/16 01:00 (Peridex 0.12% Liq) 15 ml BID@08,20 MT 11/27/16 08:00 11/27/16 08:57 (Senna Liq) 8.8 mg BID PO/TUBE 11/27/16 09:00 11/27/16 09:08 (D50w (Vial) Inj) 25 ml UNSCH PRN IV PUSH 11/27/16 08:15 Glucagon 1 mg 1 mg UNSCH PRN OTHER 11/27/16 08:15 (Vancomycin Inj/ NS 250 ml Inj) 262.5 ml @ 250 mls/hr ONCE IV 11/27/16 15:00 11/27/16 23:00 Vital Signs / I&O Vital Signs Date Time Temp Pulse Resp B/P Pulse Ox O2 Delivery O2 Flow Rate FiO2 11/27/16 11:45 95 40 11/27/16 08:14 100 40 11/27/16 06:03 100 55 11/27/16 06:00 61 11/27/16 04:00 98.5 62 12 133/63 100 11/27/16 04:00 62 11/27/16 04:00 70 11/27/16 03:51 100 70 11/27/16 02:00 65 11/27/16 00:13 100 50 11/27/16 00:00 70 11/27/16 00:00 97.9 70 12 111/53 100 17 00:00 80 17 22:59 100 90 17 22:20 98 100 11/26/16 22:16 98.1 84 20 130/59 98 17 22:05 99 100 11/26/16 21:01 98.8 83 12 88/54 99 Ventilator 17 20:50 75 12 95/55 99 Ventilator 17 20:40 75 12 95/52 99 17 20:25 75 12 93/51 99 Ventilator 17 20:15 74 12 94/50 98 Ventilator 17 20:05 75 12 91/53 99 Ventilator 17 19:57 77 12 90/51 99 Ventilator 17 19:40 76 12 93/54 99 Ventilator 17 19:38 78 12 89/52 98 Ventilator 17 19:36 99 100 11/26/16 19:25 79 12 85/50 97 Ventilator 17 19:10 77 12 76/43 99 Ventilator 17 18:45 83 18 91/55 98 Ventilator 17 18:15 86 12 138/63 98 Ventilator 17 17:45 100 12 75/45 98 Ventilator 17 17:19 104.1 105 12 90/51 98 Ventilator 17 17:15 112 12 84/49 99 Ventilator 17 16:55 12 99 Ventilator 17 16:50 94 100 17 16:50 125 18 183/85 98 Room Air 11/26/16 16:45 30 98 CPAP 11/26/16 16:44 100 11/26/16 16:34 157 35 121/94 85 11/26/16 16:30 98 100 I/O 11/26/16 11/26/1617 11/27/16 11/27/16 11/27/16 07:00 15:00 23:00 07:00 15:00 23:00 Intake Total 1633 ml Output Total 350 ml Balance 1283 ml Intake Oral 0 ml IV Total 1633 ml Output Urine Total 350 ml Physical Exam GENERAL: NAD, currently awake on the vent SKIN: Warm and dry. HEAD: Atraumatic. Normocephalic. EYES: Pupils equal and round. No scleral icterus. No injection or drainage. ENT: No nasal bleeding or discharge. Mucous membranes pink and moist. NECK: Trachea midline. No JVD. CARDIOVASCULAR: Regular rate and rhythm. 2/6 mid to late peaking crescendo- decrescendo murmur to the RSB RESPIRATORY: Decreased breath sounds bilaterally GASTROINTESTINAL: Abdomen soft, non-tender, nondistended. Hepatic and splenic margins not palpable. MUSCULOSKELETAL: Extremities without clubbing, cyanosis, or edema. No obvious deformities. NEUROLOGICAL: Awake and alert. No obvious cranial nerve deficits. Motor grossly within normal limits. Five out of 5 muscle strength in the arms and legs. Normal speech. PSYCHIATRIC: Appropriate mood and affect; insight and judgment normal. Laboratory Laboratory Tests Test 11/26/16 11/26/16 11/26/16 11/26/16 16:40 17:43 19:21 19:53 White Blood Count 16.9 TH/MM3 Red Blood Count 5.07 MIL/MM3 Hemoglobin 17.3 GM/DL Hematocrit 51.0 % Mean Corpuscular Volume 100.6 FL Mean Corpuscular Hemoglobin 34.1 PG Mean Corpuscular Hemoglobin 33.9 % Concent Red Cell Distribution Width 13.9 % Platelet Count 204 TH/MM3 Mean Platelet Volume 9.3 FL Neutrophils (%) (Auto) 69.9 % Lymphocytes (%) (Auto) 17.9 % Monocytes (%) (Auto) 10.9 % Eosinophils (%) (Auto) 0.4 % Basophils (%) (Auto) 0.9 % Neutrophils # (Auto) 11.8 TH/MM3 Lymphocytes # (Auto) 3.0 TH/MM3 Monocytes # (Auto) 1.8 TH/MM3 Eosinophils # (Auto) 0.1 TH/MM3 Basophils # (Auto) 0.2 TH/MM3 CBC Comment DIFF FINAL Differential Comment Prothrombin Time 11.4 SEC Prothromb Time International 1.0 RATIO Ratio Activated Partial 24.8 SEC Thromboplast Time Sodium Level 139 MEQ/L Potassium Level 3.5 MEQ/L Chloride Level 100 MEQ/L Carbon Dioxide Level 24.2 MEQ/L Anion Gap 15 MEQ/L Blood Urea Nitrogen 17 MG/DL Creatinine 1.56 MG/DL Estimat Glomerular Filtration 39 ML/MIN Rate Random Glucose 248 MG/DL Lactic Acid Level 6.0 mmol/L 2.6 mmol/L Calcium Level 9.1 MG/DL Magnesium Level 2.3 MG/DL Total Creatine Kinase 134 U/L Creatine Kinase MB 8.5 NG/ML Troponin I 2.02 NG/ML B-Type Natriuretic Peptide 458 PG/ML Blood Gas Puncture Site RT RADIAL LT RADIAL Blood Gas Patient Temperature 98.6 98.6 Blood Gas HCO3 19 mmol/L 23 mmol/L Blood Gas Base Excess -5.7 mmol/L -2.1 mmol/L Blood Gas Oxygen Saturation 95 % 93 % Arterial Blood pH 7.31 7.31 Arterial Blood Partial 39 mmHg 47 mmHg Pressure CO2 Arterial Blood Partial 129 mmHG 105 mmHG Pressure O2 Arterial Blood Oxygen Content 20.6 Vol % 18.6 Vol % Arterial Blood 2.1 % 2.2 % Carboxyhemoglobin Arterial Blood Methemoglobin 1.9 % 1.9 % Blood Gas Hemoglobin 15.3 G/DL 14.1 G/DL Oxygen Delivery Device VENTILATOR VENTILATOR Blood Gas Ventilator Setting PRVC/AC PRVC 12/550/1.0IT/5+ Blood Gas Inspired Oxygen 100 % 100 % Test 11/26/16 11/27/16 11/27/16 11/27/16 22:25 02:30 04:15 05:15 Nasal Screen MRSA (PCR) NEGATIVE Activated Partial 98.6 SEC 68.6 SEC Thromboplast Time White Blood Count 17.5 TH/MM3 Red Blood Count 4.35 MIL/MM3 Hemoglobin 14.6 GM/DL Hematocrit 42.7 % Mean Corpuscular Volume 98.2 FL Mean Corpuscular Hemoglobin 33.6 PG Mean Corpuscular Hemoglobin 34.2 % Concent Red Cell Distribution Width 13.5 % Platelet Count 136 TH/MM3 Mean Platelet Volume 8.1 FL Neutrophils (%) (Auto) 94.1 % Lymphocytes (%) (Auto) 1.9 % Monocytes (%) (Auto) 3.8 % Eosinophils (%) (Auto) 0.0 % Basophils (%) (Auto) 0.2 % Neutrophils # (Auto) 16.5 TH/MM3 Lymphocytes # (Auto) 0.3 TH/MM3 Monocytes # (Auto) 0.7 TH/MM3 Eosinophils # (Auto) 0.0 TH/MM3 Basophils # (Auto) 0.0 TH/MM3 CBC Comment DIFF FINAL Differential Comment Sodium Level 143 MEQ/L Potassium Level 3.8 MEQ/L Chloride Level 110 MEQ/L Carbon Dioxide Level 26.0 MEQ/L Anion Gap 7 MEQ/L Blood Urea Nitrogen 22 MG/DL Creatinine 1.33 MG/DL Estimat Glomerular Filtration 46 ML/MIN Rate Random Glucose 224 MG/DL Calcium Level 7.5 MG/DL Total Bilirubin 0.9 MG/DL Aspartate Amino Transf 287 U/L (AST/SGOT) Alanine Aminotransferase 41 U/L (ALT/SGPT) Alkaline Phosphatase 53 U/L Troponin I GREATER THAN 40.00 NG/ML Total Protein 6.2 GM/DL Albumin 3.2 GM/DL Test 11/27/16 11/27/16 11/27/16 09:30 11:04 12:29 Urine Color YELLOW Urine Turbidity HAZY Urine pH 5.5 Urine Specific [place] 1.023 Urine Protein 30 mg/dL Urine Glucose (UA) TRACE mg/dL Urine Ketones NEG mg/dL Urine Occult Blood SMALL Urine Nitrite NEG Urine Bilirubin NEG Urine Urobilinogen LESS THAN 2.0 MG/DL Urine Leukocyte Esterase LARGE Urine RBC 16 /hpf Urine WBC 72 /hpf Urine WBC Clumps FEW Urine Squamous Epithelial <1 /hpf Cells Urine Bacteria FEW /hpf Urine Mucus FEW /lpf Microscopic Urinalysis Comment CATH-CULTURE IND Urine Eosinophils RARE /HPF Urine Random Creatinine 149.6 MG/DL Urine Random Sodium 18 MEQ/L Blood Gas Puncture Site YANEZ Blood Gas Patient Temperature 98.6 Venous Blood pH 7.29 Venous Blood Partial Pressure 43 mmHg CO2 Venous Blood Partial Pressure 48 mmHg O2 Venous Blood HCO3 20 mmol/L Venous Blood Oxygen Saturation 79 % Venous Blood Oxygen Content 14.7 Vol % Venous Blood Base Excess -5.5 mmol/L Oxygen Delivery Device VENT Blood Gas Ventilator Setting PRVC/14/550/5PEEP Blood Gas Inspired Oxygen 50 % Activated Partial 91.7 SEC Thromboplast Time Assessment and Plan Problem List: (1) Septic shock (2) PNA (pneumonia) (3) NSTEMI (non-ST elevated myocardial infarction) (4) Respiratory failure (5) LBBB (left bundle branch block) (6) CONSTANTIN (acute kidney injury) Assessment and Plan 1) Sepsis from bilaterally PNA 2) Lactic Acid clearing 3) 2D echo pending 4) ASA/Plavix/Heparin 5) No BB due to hypotension, weaning off Levophed 6) Eventual ischemia work up once through acute illness Cole Hassan DO Nov 27, 2016 13:20
[2016-11-27] MEDS: fentaNYL DRIP 250 ML IV SCH (14:14)
[2016-11-27] MEDS ORDERED: VANCOMYCIN INJ 1,250 MG in SODIUM CHLOR 0.9% 250 ML INJ 250 ML IV SCH (15:00)
[2016-11-27] MEDS ORDERED: SODIUM CHLOR 0.9% 1000 ML INJ 1,000 ML IV ONE (15:15)
[2016-11-27] MEDS ORDERED: ALBUMIN HUMAN 25% 25 GM/100 ML BAGP IV ONE (15:15)
[2016-11-27 15:50] LABS: HEMOGLOBIN A1a 0.8 %; HEMOGLOBIN A1b 1.4 %; HEMOGLOBIN Ao 86.2 %; HEMOGLOBIN LA1C 2.8 %; HEMOGLOBIN P3 3.8 %
[2016-11-27] MEDS: AZITHROMYCIN INJ 500 MG in SODIUM CHLOR 0.9% 250 ML INJ 250 ML IV SCH (21:08)
[2016-11-27] MEDS: ATORVASTATIN 80 MG TAB PO SCH (21:09)
--- NOTE | 2016-11-27 22:36 | EKG ---
Date Performed: 11/27/2016 Time Performed: 09:06:07 PTAGE: 89 years EKG: Sinus rhythm LEFT VENTRICULAR HYPERTROPHY AND ST-T CHANGE ABNORMAL ECG INTERPRETATION BASED ON A DEFAULT AGE OF 3 0 YEARS PREVIOUS TRACING : 11/27/2016 02.19 DOCTOR: Josy Solo Interpretating Date/Time 11/27/2016 22:34:19
--- NOTE | 2016-11-27 22:42 | EKG ---
Date Performed: 11/27/2016 Time Performed: 02:19:00 PTAGE: 89 years EKG: Sinus rhythm . Extensive ST-T changes are nonspecific Borderline ECG NO PREVIOUS TRACING DOCTOR: Josy Solo Interpretating Date/Time 11/27/2016 22:40:15
--- NOTE | 2016-11-27 22:52 | EKG ---
Date Performed: 11/26/2016 Time Performed: 17:02:52 PTAGE: 89 years EKG: SINUS TACHYCARDIA LEFT BUNDLE BRANCH BLOCK ABNORMAL ECG PREVIOUS TRACING : 11/26/2016 16.30 DOCTOR: Josy Solo Interpretating Date/Time 11/27/2016 22:46:46
--- NOTE | 2016-11-27 22:53 | EKG ---
Date Performed: 11/26/2016 Time Performed: 16:30:20 PTAGE: 89 years EKG: UNCERTAIN REGULAR RHYTHM MARKED LEFT AXIS DEVIATION LEFT BUNDLE BRANCH BLOCK ABNORMAL ECG I NTERPRETATION BASED ON A DEFAULT AGE OF 39 YEARS NO PREVIOUS TRACING DOCTOR: Josy Solo Interpretating Date/Time 11/27/2016 22:47:17
[2016-11-28] VITALS (18 sets, daily range): BP systolic 105–161; BP diastolic 51–71; PULSE 68–103; RESP 10–20; TEMP 97.5–99.3; O2SAT 94–99
[2016-11-28] MEDS: RESP: ALBUTEROL 2.5 MG/IPRATROPIUM 0.5 MG NEB (SCH) INH ×7 (00:05→22:56)
[2016-11-28] MEDS: PIPERACIL-TAZO 4.5 GM PREMIX 100 ML IV SCH ×4 (02:24→20:26)
[2016-11-28] MEDS: fentaNYL DRIP 250 ML IV SCH (02:25)
[2016-11-28] MEDS: SODIUM CHLOR 0.9% 1000 ML INJ 1,000 ML IV SCH ×3 (02:26→17:37)
[2016-11-28 03:07] LABS: APTT (PATIENT) 39.8 SEC (24.3-30.1)
[2016-11-28 03:10] LABS: AUTOMATED NEUTROPHIL # 6.5 TH/MM3 (1.8-7.7); BASOPHIL % 0.1 % (0.0-2.0); HEMATOCRIT 32.5 % (39.0-51.0); LYMPH % 3.7 % (9.0-44.0); LYMPHOCYTE # 0.3 TH/MM3 (1.0-4.8); MEAN CELL VOLUME 97.8 FL (80.0-100.0); MEAN CORPUSCULAR HEMOGLOBIN 34.2 PG (27.0-34.0); NEUT % 91.2 % (16.0-70.0); PLATELET COUNT 89 TH/MM3 (150-450); RED BLOOD COUNT 3.32 MIL/MM3 (4.50-5.90); RED CELL DISTRIBUTION WIDTH 13.9 % (11.6-17.2); WHITE BLOOD COUNT 7.2 TH/MM3 (4.0-11.0)
[2016-11-28 03:13] LABS: HEMO FLAGS AUTO DIFF
[2016-11-28 03:50] LABS: BICARBONATE 25.2 MEQ/L (21.0-32.0); CALCIUM-PROTEIN CORRECTED 7.5 MG/DL (8.5-10.1); HDL CHOLESTEROL 60.5 MG/DL (40.0-60.0); MAGNESIUM 1.8 MG/DL (1.5-2.5); POTASSIUM 3.5 MEQ/L (3.5-5.1); TOTAL BILIRUBIN ADULT 0.5 MG/DL (0.2-1.0)
--- NOTE | 2016-11-28 03:55 | RADRPT ---
EXAM DATE/TIME: 11/28/2016 02:45 [facility] COMPARISON: CHEST SINGLE AP, November 26, 2016, 18:27. INDICATIONS : Shortness of breath, possible pulmonary disease. MEDICAL HISTORY : Hypertension. Aneurysm, abdominal. SURGICAL HISTORY : CABG. ENCOUNTER: Subsequent ACUITY: 3 days PAIN SCORE: Non-responsive. LOCATION: Bilateral chest FINDINGS: Interval development of consolidation in the left lower lung with loss of delineation of the left hem idiaphragm. No infiltrate seen in the right lung. The heart is upper limits normal size for AP supi ne technique. ET tube well above the alden. CONCLUSION: Increasing consolidative infiltrate at the left lung base. Billy Ortiz MD on November 28, 2016 at 3:53 Board Certified Radiologist. This report was verified electronically.
[2016-11-28] MEDS: CHLORHEXIDINE GLUCONATE 2 % 1 PACK (2 CLOTHS) TOP SCH (04:00)
[2016-11-28 04:12] LABS: CKMB 41.1 NG/ML (0.5-3.6)
[2016-11-28 05:17] LABS: PLATELET ESTIMATE SMEAR LOW (NORMAL); SCAN/DIFF AUTO DIFF CONFIRMED
[2016-11-28] MEDS: INSULIN NovoLIN REGULAR SUPPLEMENTAL SCALE SQ SCH ×4 (06:40→20:27)
[2016-11-28] MEDS: FAMOTIDINE 20 MG/2 ML VIAL IV PUSH SCH ×2 (08:25→20:25)
[2016-11-28] MEDS: CHLORHEXIDINE 0.12% (ORAL KIT) 15 ML CUP MT SCH ×2 (08:25→20:00)
[2016-11-28] MEDS: methylPREDNISolone SOD SUCC 40 MG/1 ML VIAL IV SCH ×2 (08:25→20:25)
[2016-11-28] MEDS: ARTIFICIAL TEARS OPTH SOLN 15 ML BTL EACH EYE SCH ×3 (08:25→18:00)
[2016-11-28] MEDS: SENNOSIDES SYRUP 8.8 MG/5 ML CUP PO/TUBE SCH (08:25)
[2016-11-28] MEDS: CLOPIDOGREL 75 MG TAB PO SCH (08:25)
[2016-11-28] MEDS: DOCUSATE SODIUM 100 MG/10 ML UDC G-TUBE SCH (08:25)
[2016-11-28] MEDS: ASPIRIN EC 81 MG TABEC PO SCH (08:25)
[2016-11-28] MEDS: SODIUM CHLORIDE 0.9% FLUSH 5 ML FLUSH IV FLUSH SCH ×2 (08:26→20:26)
[2016-11-28] MEDS: SODIUM CHLORIDE 0.9% FLUSH 5 ML FLUSH IV FLUSH PRN (08:26)
--- NOTE | 2016-11-28 08:26 | PD.CARD.PN ---
Subjective Subjective Remarks Awake on the vent, no chest pain Objective Medications Current Medications Medications (Trade) Dose Ordered Sig/Lopez Route Start Time Stop Time Status Last Admin (fentaNYL DRIP) 250 ml @ 0 mls/hr TITRATE IV 11/26/16 17:30 11/28/16 02:25 (Plavix) 75 mg DAILY PO 11/27/16 09:00 11/27/16 08:58 (Lipitor) 80 mg HS PO 11/26/16 21:00 11/27/16 21:09 (Heparin Inj) 5,000 units UNSCH PRN IV 11/26/16 23:45 Heparin Sodium (Porcine) 2500 units 2,500 units UNSCH PRN IV 11/26/16 23:45 Heparin Sodium/ Dextrose 250 ml @ 0 mls/hr TITRATE IV 11/26/16 17:45 11/26/16 19:53 Piperacillin Sod/ Tazobactam Sod 100 ml @ 200 mls/hr Q6H IV 11/27/16 02:00 11/28/16 02:24 Azithromycin 500 mg/Sodium Chloride 250 ml @ 250 mls/hr Q24H IV 11/26/16 20:00 11/27/16 21:08 (Vancomycin Consult Pharmacy) 0 ml @ 0 mls/hr UNSCH XX 11/26/16 19:00 Methylprednisolone Sodium Succinate 40 mg 40 mg Q12H IV 11/26/16 20:00 11/27/16 21:07 (NS 1000 ml Inj) 1,000 ml @ 125 mls/hr Q8H IV 11/26/16 18:51 11/28/16 02:26 (NS Flush) 2 ml UNSCH PRN IV FLUSH 11/26/16 19:00 11/27/16 08:59 (NS Flush) 2 ml BID IV FLUSH 11/26/16 21:00 11/27/16 21:09 (Tylenol) 650 mg Q6H PRN PO 11/26/16 19:00 (Pepcid Inj) 20 mg Q12HR IV PUSH 11/26/16 21:00 11/27/16 21:09 (Ativan Inj) 1 mg Q1H PRN IV 11/26/16 19:00 (Tears Naturale Opth Soln) 1 drop TID EACH EYE 11/27/16 09:00 11/27/16 18:00 (Colace Liq) 100 mg Q12H G-TUBE 11/26/16 21:00 11/27/16 21:08 Miscellaneous Information 1 Q361D XX 11/26/16 19:00 11/26/16 19:00 (Chlorhexidine 2% Cloth) 3 pack Taper DAILY@04 TOP 11/27/16 04:00 11/23/17 03:59 11/28/16 04:00 Chlorhexidine Gluconate 3 pack 3 pack UNSCH PRN TOP 11/26/16 19:00 Propofol 100 ml @ 0 mls/hr TITRATE IV 11/26/16 19:00 11/26/16 19:25 (Levophed-Dextrose Drip) 250 ml @ 0 mls/hr TITRATE IV 11/27/16 01:00 11/27/16 09:09 (Brethine Inj) 1 mg UNSCH PRN SQ 11/27/16 01:00 (Peridex 0.12% Liq) 15 ml BID@08,20 MT 11/27/16 08:00 11/27/16 21:08 (Senna Liq) 8.8 mg BID PO/TUBE 11/27/16 09:00 11/27/16 21:09 (D50w (Vial) Inj) 25 ml UNSCH PRN IV PUSH 11/27/16 08:15 (Glucagon Inj) 1 mg UNSCH PRN OTHER 11/27/16 08:15 (Ecotrin Ec) 81 mg DAILY PO 11/28/16 09:00 Vital Signs / I&O Vital Signs Date Time Temp Pulse Resp B/P Pulse Ox O2 Delivery O2 Flow Rate FiO2 11/28/16 06:00 87 11/28/16 04:00 98.4 87 18 149/67 95 11/28/16 04:00 45 11/28/16 04:00 68 120/56 11/28/16 04:00 81 11/28/16 03:46 96 35 11/28/16 02:00 74 11/28/16 00:07 99 35 11/28/16 00:00 98.6 73 20 105/51 97 11/28/16 00:00 73 11/28/16 00:00 45 11/27/16 22:00 74 11/27/16 22:00 68 103/52 11/27/16 20:02 98 35 11/27/16 20:00 68 11/27/16 20:00 98.2 68 18 103/52 99 11/27/16 20:00 45 11/27/16 18:00 67 11/27/16 16:13 99 40 11/27/16 16:00 73 137/63 11/27/16 16:00 45 11/27/16 16:00 98.7 73 16 137/63 99 11/27/16 16:00 73 11/27/16 14:00 61 11/27/16 12:00 97.7 63 14 125/57 96 11/27/16 12:00 45 11/27/16 12:00 63 11/27/16 11:45 95 40 11/27/16 10:00 67 127/60 11/27/16 10:00 67 I/O 11/27/16 11/27/16 11/27/16 11/28/16 11/28/16 11/28/16 07:00 15:00 23:00 07:00 15:00 23:00 Intake Total 1633 ml 1499 ml 2447 ml 1288 ml Output Total 350 ml 250 ml 250 ml 250 ml Balance 1283 ml 1249 ml 2197 ml 1038 ml Intake Oral 0 ml IV Total 1633 ml 1479 ml 2281 ml 1131 ml Tube Feeding 20 ml 166 ml 157 ml Output Urine Total 350 ml 250 ml 250 ml 250 ml # Bowel Movements 0 0 0 Physical Exam GENERAL: NAD, currently awake on the vent SKIN: Warm and dry. HEAD: Atraumatic. Normocephalic. EYES: Pupils equal and round. No scleral icterus. No injection or drainage. ENT: No nasal bleeding or discharge. Mucous membranes pink and moist. NECK: Trachea midline. No JVD. CARDIOVASCULAR: Regular rate and rhythm. 2/6 mid to late peaking crescendo- decrescendo murmur to the RSB RESPIRATORY: Decreased breath sounds bilaterally GASTROINTESTINAL: Abdomen soft, non-tender, nondistended. Hepatic and splenic margins not palpable. MUSCULOSKELETAL: Extremities without clubbing, cyanosis, or edema. No obvious deformities. NEUROLOGICAL: Awake and alert. No obvious cranial nerve deficits. Motor grossly within normal limits. Five out of 5 muscle strength in the arms and legs. Normal speech. PSYCHIATRIC: Appropriate mood and affect; insight and judgment normal. Laboratory Laboratory Tests Test 11/27/16 11/27/16 11/27/16 11/27/16 09:30 11:04 12:29 15:07 Urine Color YELLOW Urine Turbidity HAZY Urine pH 5.5 Urine Specific [place] 1.023 Urine Protein 30 mg/dL Urine Glucose (UA) TRACE mg/dL Urine Ketones NEG mg/dL Urine Occult Blood SMALL Urine Nitrite NEG Urine Bilirubin NEG Urine Urobilinogen LESS THAN 2.0 MG/DL Urine Leukocyte Esterase LARGE Urine RBC 16 /hpf Urine WBC 72 /hpf Urine WBC Clumps FEW Urine Squamous Epithelial <1 /hpf Cells Urine Bacteria FEW /hpf Urine Mucus FEW /lpf Microscopic Urinalysis Comment CATH-CULTURE IND Urine Eosinophils RARE /HPF Urine Random Creatinine 149.6 MG/DL Urine Random Sodium 18 MEQ/L Blood Gas Puncture Site YANEZ Blood Gas Patient Temperature 98.6 Venous Blood pH 7.29 Venous Blood Partial Pressure 43 mmHg CO2 Venous Blood Partial Pressure 48 mmHg O2 Venous Blood HCO3 20 mmol/L Venous Blood Oxygen Saturation 79 % Venous Blood Oxygen Content 14.7 Vol % Venous Blood Base Excess -5.5 mmol/L Oxygen Delivery Device VENT Blood Gas Ventilator Setting PRVC/14/550/5PEEP Blood Gas Inspired Oxygen 50 % Activated Partial 91.7 SEC 51.0 SEC Thromboplast Time Test 11/27/16 11/28/16 18:40 02:30 Troponin I 34.00 NG/ML White Blood Count 7.2 TH/MM3 Red Blood Count 3.32 MIL/MM3 Hemoglobin 11.4 GM/DL Hematocrit 32.5 % Mean Corpuscular Volume 97.8 FL Mean Corpuscular Hemoglobin 34.2 PG Mean Corpuscular Hemoglobin 35.0 % Concent Red Cell Distribution Width 13.9 % Platelet Count 89 TH/MM3 Mean Platelet Volume 8.6 FL Neutrophils (%) (Auto) 91.2 % Lymphocytes (%) (Auto) 3.7 % Monocytes (%) (Auto) 5.0 % Eosinophils (%) (Auto) 0.0 % Basophils (%) (Auto) 0.1 % Neutrophils # (Auto) 6.5 TH/MM3 Lymphocytes # (Auto) 0.3 TH/MM3 Monocytes # (Auto) 0.4 TH/MM3 Eosinophils # (Auto) 0.0 TH/MM3 Basophils # (Auto) 0.0 TH/MM3 CBC Comment AUTO DIFF Differential Comment AUTO DIFF CONFIRMED Platelet Estimate LOW Activated Partial 39.8 SEC Thromboplast Time Sodium Level 146 MEQ/L Potassium Level 3.5 MEQ/L Chloride Level 113 MEQ/L Carbon Dioxide Level 25.2 MEQ/L Anion Gap 8 MEQ/L Blood Urea Nitrogen 22 MG/DL Creatinine 1.20 MG/DL Estimat Glomerular Filtration 57 ML/MIN Rate Random Glucose 159 MG/DL Lactic Acid Level 1.2 mmol/L Calcium Level 6.7 MG/DL Protein Corrected Calcium 7.5 MG/DL Phosphorus Level 2.6 MG/DL Magnesium Level 1.8 MG/DL Total Bilirubin 0.5 MG/DL Aspartate Amino Transf 156 U/L (AST/SGOT) Alanine Aminotransferase 44 U/L (ALT/SGPT) Alkaline Phosphatase 37 U/L Total Creatine Kinase 413 U/L Creatine Kinase MB 41.1 NG/ML Creatine Kinase MB % 10.0 % Total Protein 5.4 GM/DL Albumin 3.0 GM/DL Triglycerides Level 72 MG/DL Cholesterol Level 125 MG/DL LDL Cholesterol 50 MG/DL HDL Cholesterol 60.5 MG/DL Cholesterol/HDL Ratio 2.06 RATIO Thyroid Stimulating Hormone 0.470 uIU/ML 3rd Gen Random Vancomycin Level 11.2 COMMENT Assessment and Plan Problem List: (1) Septic shock (2) PNA (pneumonia) (3) NSTEMI (non-ST elevated myocardial infarction) (4) Respiratory failure (5) LBBB (left bundle branch block) (6) CONSTANTIN (acute kidney injury) Assessment and Plan 1) Sepsis from bilaterally PNA 2) Lactic Acid clearing 3) 2D echo pending 4) ASA/Plavix/Heparin 5) No BB due to hypotension, Levophed weaned off... will start BB when stable 6) Eventual ischemia work up once through acute illness 7) Lasix today, IVF stopped Cole Hassan DO Nov 28, 2016 08:26
[2016-11-28] MEDS ORDERED: FUROSEMIDE 40 MG/4 ML VIAL IV PUSH ONE (08:30)
[2016-11-28] MEDS ORDERED: POTASSIUM CHLOR 40 MEQ PREMIX 100 ML IV ONE (11:45)
--- NOTE | 2016-11-28 12:01 | HHI.CCPN ---
Subjective Remarks/Hospital Course Elderly male with PAD, COPD presents to the ED with shortness of breath since 3pm today. STEMI was called because of LBBB and unknown duration. Patient denied any chest pain but was very tachypneic. He was emergently intubated in the ED. 11/27: Afebrile. Currently normal sinus rhythm. Sedated on the ventilator on propofol drip. Currently norepinephrine at 7 g a minute. Decreased urine output noted. Status post 3 L normal saline in ED. CVP pending. SUBJECTIVE: 11/28: Tmax 99.3. Currently off all vasopressors. Awake and alert and following commands on the ventilator. Adequate urine output. No bowel movement. Objective Vital Signs Date Time Temp Pulse Resp B/P Pulse Ox O2 Delivery O2 Flow Rate FiO2 11/28/16 10:00 84 11/28/16 10:00 161/71 11/28/16 08:30 96 35 11/28/16 08:00 99.3 10 11/26/16 21:01 Ventilator Intake and Output 11/27/16 11/27/16 11/28/16 08:00 16:00 00:00 Intake Total 1633 ml 1499 ml 2447 ml Output Total 350 ml 250 ml 250 ml Balance 1283 ml 1249 ml 2197 ml Result Diagram: 11/28/16 0230 11/28/16 0230 Other Results Microbiology Date/Time Procedure Status Source Growth 11/27/16 10:35 Gram Stain - Final Resulted Sputum Endotracheal 11/27/16 10:35 Sputum Culture Resulted Sputum Endotracheal Pending 11/27/16 09:30 Urine Culture Received Urine Catheterized Urine Pending 11/27/16 09:30 Legionella Antigen - Final Complete Urine Catheterized Urine PRESUMPTIVE NEGATIVE FOR LEGIONELLA P... 11/27/16 09:30 Streptococcus pneumoniae Antigen (M - Final Complete Urine Catheterized Urine PRESUMPTIVE NEGATIVE FOR STREPTOCOCCU... 11/26/16 16:45 Aerobic Blood Culture - Preliminary Resulted Blood Peripheral NO GROWTH IN 2 DAYS 11/26/16 16:45 Anaerobic Blood Culture - Preliminary Resulted Blood Peripheral NO GROWTH IN 2 DAYS Imaging Last Impressions Chest X-Ray 11/28/16 0600 Signed Impressions: Service Date/Time: Monday, November 28, 2016 02:45 - CONCLUSION: Increasing consolidative infiltrate at the left lung base. Billy Ortiz MD Renal Ultrasound 11/27/16 0000 Signed Impressions: Service Date/Time: Sunday, November 27, 2016 10:02 - CONCLUSION: 1. Unremarkable ultrasound examination of the kidneys. Amarjit Lua MD Lower Extremity Ultrasound 11/27/16 0000 Signed Impressions: Service Date/Time: Sunday, November 27, 2016 09:38 - CONCLUSION: Negative for deep venous thrombosis. Jeff Pringle MD FACR Objective Remarks GENERAL: Elderly male, critically ill currently resting in bed in no acute distress SKIN: Cool and dry. HEAD: Atraumatic. Normocephalic. EYES: Pupils equal and round about 2 mm bilaterally and minimally reactive. No scleral icterus. No injection or drainage. ENT: No nasal bleeding or discharge. Mucous membranes pink and moist. Orotracheally intubated with OG tube in place NECK: Trachea midline. No appreciated JVD. Right IJ CVL clean dry and intact CARDIOVASCULAR: Regular rate and rhythm. S1, S2. No S4. Without murmurs RESPIRATORY: Coarse crackles appreciated bilaterally lobes. Breath sounds equal bilaterally. GASTROINTESTINAL: Abdomen slightly protuberant, nontender. Hypoactive bowel sounds are appreciated. Hepatic and splenic margins not palpable. MUSCULOSKELETAL: Extremities with trace bilateral lower extremity edema. No obvious deformities. NEUROLOGICAL: Currently awake and alert and following commands. Moves all 4 extremities strongly to command. Positive gag. Positive corneal reflex. Urinary Catheter: Yes Assessment to: Continue Ochoa insert reason: Prolonged Immobilization Vascular Central Line Catheter: Yes Assessment to: Continue Date of Insertion: Nov 26, 2016 Line: Central Venous Catheter Side: Right Location: Internal, Jugular A/P Assessment and Plan Neuro/Psych: Currently on propofol/fentanyl drips for sedation/analgesia while intubated Goal of RASS -2 Daily sedation vacation Acetaminophen for fever CV: STEMI? With elevated troponin Left bundle branch block Shock - likely sepsis/rule out cardiogenic History of PAD? Lactic acidosis - resolved Elevated HDL Off all vasopressors since yesterday evening. CVP currently around 10 Status post 3 L normal saline and 1 L LR bolus Currently on normal saline at 125 cc an hour Evaluated by Dr. Hassan in ED. Currently on aspirin 81 mg daily, Plavix 75 mill grams daily after loaded with 300 mg 1 and Lipitor 80 mg daily. Echocardiogram pending Serial troponins peaked greater than 40 currently at 30 Resp: Acute hypoxemic respiratory failure likely secondary to community-acquired pneumonia History of COPD? PRVC 14/~550///50 PSV trials 08/12 at 35% Ventilator bundle Scheduled bronchodilator therapy every 4 hours and as needed Spontaneous breathing trials Follow-up chest x-ray in a.m.. Today's revealed increasing left lower lobe infiltrate GI: Elevated AST - likely cardiac related Hypoalbuminemia Patient is currently Glucerna 1.5 goal 55 cc an hour. Pepcid for GI prophylaxis Colace/Senokot for bowel regimen Recheck CMP in a.m. Follow trends of AST : Ochoa has been placed for accurate I's and O's in a critically ill patient Endo: Hyperglycemia of critical illness Sliding-scale insulin with Accu-Cheks to maintain euglycemia. Moderate regimen Check hemoglobin A1c in a.m. Renal: Acute kidney injury Unknown baseline. Negative renal ultrasound/urine lites. Rare urine eosinophils Monitor urine output.. Accurate I's and O's. Heme: Leukocytosis Thrombocytopenia Follow CBC daily. Monitor trends ID: Likely community-acquired pneumonia Day #3 Zosyn/Zithromax. Pertinent cultures 11/26 - blood cultures 2 -no growth 11/27 UA/sputum - no growth to date. influenza negative MSK: History of sacral decubitus ulcer Decubitus prevention protocol initiated. PT evaluate and treat FEN: Hypopotassemia Hypo-magnesium Hypocalcemia Received 40 mEq potassium chloride, 2 g mag sulfate and 1 g calcium gluconate 1. Recheck in a.m. Replace electrolytes as clinically indicated Access - Right IJ CVL day #3 placed 1 Prophylaxis - GI - Pepcid - DVT - SCD/heparin drip Critical Care: The total critical care time was 40 minutes. Time to perform other separately billable procedures was not included in the critical care time. Vinh Aparicio MD Nov 28, 2016 12:01
[2016-11-28] MEDS: MAGNESIUM SULFATE 1 GM PREMIX 100 ML IV SCH ×2 (12:16→12:20)
[2016-11-28] MEDS: VANCOMYCIN INJ 1,500 MG in SODIUM CHLORID 0.9% 500 ML INJ 500 ML IV SCH (12:26)
[2016-11-28] MEDS ORDERED: CALCIUM GLUCONATE INJ 1 GM in SODIUM CHLORIDE 0.9% INJ 100 ML IV ONE (13:00)
[2016-11-28] MEDS: HEPARIN-D5W INJ 250 ML IV SCH (16:15)
[2016-11-28] MEDS ORDERED: NITROGLYCERIN 2% OINT 1 GM PACKET TOPICAL PRN (19:00)
[2016-11-28] MEDS ORDERED: LABETALOL HCL 100 MG/20 ML VIAL IV PUSH PRN (19:00)
[2016-11-28 20:08] LABS: APTT (PATIENT) 126.7 SEC (24.3-30.1)
[2016-11-28] MEDS: DOCUSATE SODIUM 100 MG CAP PO SCH (20:24)
[2016-11-28] MEDS: ATORVASTATIN 80 MG TAB PO SCH (20:25)
[2016-11-28] MEDS: AZITHROMYCIN INJ 500 MG in SODIUM CHLOR 0.9% 250 ML INJ 250 ML IV SCH (20:26)
[2016-11-28] MEDS: CARVEDILOL 6.25 MG TAB PO SCH (20:27)
[2016-11-28] MEDS ORDERED: SENNOSIDES SYRUP 8.8 MG/5 ML CUP PO SCH (21:00)
[2016-11-28] MEDS: LORazepam 2 MG/ML VIAL IV PRN (22:01)
[2016-11-28 23:19] LABS: APTT (PATIENT) 28.5 SEC (24.3-30.1)
[2016-11-29] VITALS (14 sets, daily range): BP systolic 130–179; BP diastolic 60–145; PULSE 67–140; RESP 18–45; TEMP 96.8–97.8; O2SAT 82–98
[2016-11-29] MEDS: PIPERACIL-TAZO 4.5 GM PREMIX 100 ML IV SCH ×4 (02:14→20:45)
[2016-11-29] MEDS: RESP: ALBUTEROL 2.5 MG/IPRATROPIUM 0.5 MG NEB (SCH) INH ×6 (03:26→23:17)
[2016-11-29] MEDS: CHLORHEXIDINE GLUCONATE 2 % 1 PACK (2 CLOTHS) TOP SCH (04:30)
--- NOTE | 2016-11-29 04:48 | RADRPT ---
EXAM DATE/TIME: 11/29/2016 04:05 [facility] COMPARISON: CHEST SINGLE AP, November 28, 2016, 2:45. INDICATIONS : Shortness of breath, possible pulmonary disease. MEDICAL HISTORY : Hypertension. Aneurysm, abdominal. SURGICAL HISTORY : CABG. ENCOUNTER: Subsequent ACUITY: 4 - 6 days PAIN SCORE: Non-responsive. LOCATION: Bilateral chest FINDINGS: There is improved aeration in the left lower lung with some residual patchy opacities, but no consoli dation. The right lung is clear. Both hemidiaphragms are well delineated. Right internal jugular c atheter tip projects over the mid superior vena cava. Interval extubation. CONCLUSION: Improving aeration in the left lower lung with some mild patchy residual non-consolidative infiltrate nikkie Ortiz MD on November 29, 2016 at 4:46 Board Certified Radiologist. This report was verified electronically.
[2016-11-29 04:59] LABS: AUTOMATED NEUTROPHIL # 7.8 TH/MM3 (1.8-7.7); BASOPHIL % 0.1 % (0.0-2.0); HEMATOCRIT 36.1 % (39.0-51.0); HEMO FLAGS DIFF FINAL; LYMPHOCYTE # 0.3 TH/MM3 (1.0-4.8); MEAN CELL VOLUME 99.1 FL (80.0-100.0); MEAN CORPUSCULAR HEMOGLOBIN 33.7 PG (27.0-34.0); NEUT % 89.9 % (16.0-70.0); PLATELET COUNT 112 TH/MM3 (150-450); RED BLOOD COUNT 3.64 MIL/MM3 (4.50-5.90); RED CELL DISTRIBUTION WIDTH 13.4 % (11.6-17.2); WHITE BLOOD COUNT 8.7 TH/MM3 (4.0-11.0)
[2016-11-29 05:18] LABS: BICARBONATE 26.8 MEQ/L (21.0-32.0); MAGNESIUM 2.5 MG/DL (1.5-2.5); POTASSIUM 4.1 MEQ/L (3.5-5.1)
[2016-11-29] MEDS: INSULIN NovoLIN REGULAR SUPPLEMENTAL SCALE SQ SCH ×4 (07:00→20:47)
--- NOTE | 2016-11-29 07:36 | PD.CARD.PN ---
Subjective Subjective Remarks No chest pain, no shortness of breath, extubated Objective Medications Current Medications Medications (Trade) Dose Ordered Sig/Lopez Route Start Time Stop Time Status Last Admin (Plavix) 75 mg DAILY PO 11/27/16 09:00 11/28/16 08:25 (Lipitor) 80 mg HS PO 11/26/16 21:00 11/28/16 20:25 (Heparin Inj) 5,000 units UNSCH PRN IV 11/26/16 23:45 Heparin Sodium (Porcine) 2500 units 2,500 units UNSCH PRN IV 11/26/16 23:45 Heparin Sodium/ Dextrose 250 ml @ 0 mls/hr TITRATE IV 11/26/16 17:45 11/28/16 16:15 Piperacillin Sod/ Tazobactam Sod 100 ml @ 200 mls/hr Q6H IV 11/27/16 02:00 11/29/16 02:14 Azithromycin 500 mg/Sodium Chloride 250 ml @ 250 mls/hr Q24H IV 11/26/16 20:00 11/28/16 20:26 (Vancomycin Consult Pharmacy) 0 ml @ 0 mls/hr UNSCH XX 11/26/16 19:00 Methylprednisolone Sodium Succinate 40 mg 40 mg Q12H IV 11/26/16 20:00 11/28/16 20:25 (NS 1000 ml Inj) 1,000 ml @ 50 mls/hr Q20H IV 11/26/16 18:51 11/28/16 02:26 (Tylenol) 650 mg Q6H PRN PO 11/26/16 19:00 (Ativan Inj) 1 mg Q1H PRN IV 11/26/16 19:00 11/28/16 22:01 (Tears Naturale Opth Soln) 1 drop TID EACH EYE 11/27/16 09:00 11/28/16 18:00 Miscellaneous Information 1 Q361D XX 11/26/16 19:00 11/26/16 19:00 (Chlorhexidine 2% Cloth) 3 pack Taper DAILY@04 TOP 11/27/16 04:00 11/23/17 03:59 11/29/16 04:30 (Chlorhexidine 2% Cloth) 3 pack UNSCH PRN TOP 11/26/16 19:00 (Peridex 0.12% Liq) 15 ml BID@08,20 MT 11/27/16 08:00 11/28/16 08:25 (D50w (Vial) Inj) 25 ml UNSCH PRN IV PUSH 11/27/16 08:15 (Glucagon Inj) 1 mg UNSCH PRN OTHER 11/27/16 08:15 Aspirin 81 mg 81 mg DAILY PO 11/28/16 09:00 11/28/16 08:25 (Vancomycin Inj/ NS 500 ml Inj) 515 ml @ 257.5 mls/ hr Q24H IV 11/28/16 12:00 11/28/16 12:26 Miscellaneous Information SPECIFIC LAB TO BE ... ONCE ONCE XX 12/01/16 11:45 12/01/16 11:46 (Pepcid Inj) 10 mg Q12HR IV PUSH 11/28/16 21:00 11/28/16 20:25 (Trandate Inj) 10 mg Q1HR PRN IV PUSH 11/28/16 19:00 (Apresoline Inj) 10 mg Q1HR PRN IV PUSH 11/28/16 19:00 (Nitroglycerin 2% Oint) 2 inch Q6HR PRN TOPICAL 11/28/16 19:00 (Coreg) 6.25 mg Q12HR PO 11/28/16 21:00 11/28/16 20:27 (Colace) 100 mg Q12HR PO 11/28/16 21:00 11/28/16 20:24 (Senokot) 8.6 mg BID PO 11/29/16 09:00 Vital Signs / I&O Vital Signs Date Time Temp Pulse Resp B/P Pulse Ox O2 Delivery O2 Flow Rate FiO2 11/29/16 06:00 73 11/29/16 04:00 97.6 93 18 173/78 91 11/29/16 04:00 93 11/29/16 02:00 74 11/29/16 00:00 80 11/29/16 00:00 97.8 80 20 136/65 93 11/28/16 22:40 88 Nasal Cannula 4.00 11/28/16 22:00 79 11/28/16 20:24 94 Nasal Cannula 3.00 11/28/16 20:00 97.5 75 16 152/66 94 11/28/16 20:00 94 Nasal Cannula 3.00 11/28/16 20:00 75 11/28/16 18:00 103 11/28/16 16:00 98.4 77 20 148/66 94 11/28/16 16:00 77 148/66 11/28/16 16:00 77 11/28/16 14:00 82 11/28/16 13:25 97 Nasal Cannula 4 36 11/28/16 12:34 97 35 11/28/16 12:00 74 11/28/16 12:00 99.1 74 14 142/67 96 11/28/16 10:00 84 11/28/16 10:00 84 161/71 11/28/16 08:30 96 35 11/28/16 08:00 35 11/28/16 08:00 76 11/28/16 08:00 99.3 76 10 114/58 96 I/O 11/28/16 11/28/16 11/28/16 11/29/16 11/29/16 11/29/16 07:00 15:00 23:00 07:00 15:00 23:00 Intake Total 1288 ml 1099 ml 1312 ml 808 ml Output Total 250 ml 1550 ml 925 ml 425 ml Balance 1038 ml -451 ml 387 ml 383 ml Intake Oral 30 ml 200 ml IV Total 1131 ml 919 ml 1282 ml 608 ml Tube Feeding 157 ml 80 ml Other 100 ml Output Urine Total 250 ml 1550 ml 925 ml 425 ml Stool Total 0 ml # Bowel Movements 0 0 0 Physical Exam GENERAL: NAD, currently awake on the vent SKIN: Warm and dry. HEAD: Atraumatic. Normocephalic. EYES: Pupils equal and round. No scleral icterus. No injection or drainage. ENT: No nasal bleeding or discharge. Mucous membranes pink and moist. NECK: Trachea midline. No JVD. CARDIOVASCULAR: Regular rate and rhythm. 2/6 mid to late peaking crescendo- decrescendo murmur to the RSB RESPIRATORY: Decreased breath sounds bilaterally GASTROINTESTINAL: Abdomen soft, non-tender, nondistended. Hepatic and splenic margins not palpable. MUSCULOSKELETAL: Extremities without clubbing, cyanosis, or edema. No obvious deformities. NEUROLOGICAL: Awake and alert. No obvious cranial nerve deficits. Motor grossly within normal limits. Five out of 5 muscle strength in the arms and legs. Normal speech. PSYCHIATRIC: Appropriate mood and affect; insight and judgment normal. Laboratory Laboratory Tests Test 11/28/16 11/28/16 11/28/16 11/29/16 12:04 18:22 21:55 03:45 Activated Partial 33.0 SEC 126.7 SEC 28.5 SEC Thromboplast Time White Blood Count 8.7 TH/MM3 Red Blood Count 3.64 MIL/MM3 Hemoglobin 12.3 GM/DL Hematocrit 36.1 % Mean Corpuscular Volume 99.1 FL Mean Corpuscular Hemoglobin 33.7 PG Mean Corpuscular Hemoglobin 34.0 % Concent Red Cell Distribution Width 13.4 % Platelet Count 112 TH/MM3 Mean Platelet Volume 8.9 FL Neutrophils (%) (Auto) 89.9 % Lymphocytes (%) (Auto) 4.0 % Monocytes (%) (Auto) 6.0 % Eosinophils (%) (Auto) 0.0 % Basophils (%) (Auto) 0.1 % Neutrophils # (Auto) 7.8 TH/MM3 Lymphocytes # (Auto) 0.3 TH/MM3 Monocytes # (Auto) 0.5 TH/MM3 Eosinophils # (Auto) 0.0 TH/MM3 Basophils # (Auto) 0.0 TH/MM3 CBC Comment DIFF FINAL Differential Comment Sodium Level 146 MEQ/L Potassium Level 4.1 MEQ/L Chloride Level 111 MEQ/L Carbon Dioxide Level 26.8 MEQ/L Anion Gap 8 MEQ/L Blood Urea Nitrogen 21 MG/DL Creatinine 1.18 MG/DL Estimat Glomerular Filtration 58 ML/MIN Rate Random Glucose 124 MG/DL Calcium Level 7.7 MG/DL Phosphorus Level 2.7 MG/DL Magnesium Level 2.5 MG/DL Assessment and Plan Problem List: (1) Septic shock (2) PNA (pneumonia) (3) NSTEMI (non-ST elevated myocardial infarction) (4) Respiratory failure (5) LBBB (left bundle branch block) (6) CONSTANTIN (acute kidney injury) (7) Aortic stenosis, severe (8) Aortic regurgitation Assessment and Plan 1) Sepsis from bilaterally PNA 2) ASA/Plavix/Heparin/Coreg 3) Severe with at least moderate AR 4) Eventual ischemia work up once through acute illness, then will have to decide on how to proceed with possible CAD and /AR 5) Lasix today, IVF stopped Cole Hassan DO Nov 29, 2016 07:36
[2016-11-29 07:43] LABS: APTT (PATIENT) 28.3 SEC (24.3-30.1)
[2016-11-29] MEDS ORDERED: FUROSEMIDE 40 MG/4 ML VIAL IV PUSH ONE (07:45)
[2016-11-29] MEDS: CHLORHEXIDINE 0.12% (ORAL KIT) 15 ML CUP MT SCH ×2 (08:00→19:48)
[2016-11-29] MEDS ORDERED: ADENOSINE IV SOLN 3 MG/ML 2 ML VIAL ONE (08:14)
[2016-11-29] MEDS ORDERED: MIDAZOLAM HCL 5 MG/ML VIAL (1 ML) ONE (08:16)
--- NOTE | 2016-11-29 08:49 | HHI.CCPN ---
Subjective Remarks/Hospital Course Elderly male with PAD, COPD presents to the ED with shortness of breath since 3pm today. STEMI was called because of LBBB and unknown duration. Patient denied any chest pain but was very tachypneic. He was emergently intubated in the ED. 11/27: Afebrile. Currently normal sinus rhythm. Sedated on the ventilator on propofol drip. Currently norepinephrine at 7 g a minute. Decreased urine output noted. Status post 3 L normal saline in ED. CVP pending. SUBJECTIVE: 11/28: Tmax 99.3. Currently off all vasopressors. Awake and alert and following commands on the ventilator. Adequate urine output. No bowel movement. 11/29: plan was for hospitalist service to assume care this morning. However, went into sudden-onset respiratory distress around 08:00 this AM. HR 148, BP 212/95. severely tachypneic in respiratory distress, diaphoretic. I discussed his care with Dr. Hassan urgently, and he has severe aortic stenosis and eccentric possibly severe aortic regurgitation. We both agree that hemodynamically, his respiratory distress may be from his tachycardia and hypertension in the setting of his valvulopathy. I started with 12mg adenosine to see if this was a SVT, and it slowed his rate down but did not convert him, and by rhythm strip appeared to be a sinus rhythm. After this, I gave him labetalol 40mg iv x 1 which brought his HR down to 95 and his BP down to 135/ 75. I then added BiPAP to help with his work of breathing and respiratory distress. I gave the patient lasix 80mg iv x 1. After about 30 minutes, the patient's severe dyspnea lessened. During this event, he denied chest pain. he did endorse significant shortness of breath. Objective Vital Signs Date Time Temp Pulse Resp B/P Pulse Ox O2 Delivery O2 Flow Rate FiO2 11/29/16 06:00 73 11/29/16 04:00 97.6 18 173/78 91 11/28/16 22:40 Nasal Cannula 4.00 11/28/16 13:25 36 Intake and Output 11/28/16 11/28/16 11/29/16 08:00 16:00 00:00 Intake Total 1288 ml 1099 ml 1312 ml Output Total 250 ml 1550 ml 925 ml Balance 1038 ml -451 ml 387 ml Result Diagram: 11/29/16 0345 11/29/16 0345 Other Results Microbiology Date/Time Procedure Status Source Growth 11/27/16 09:30 Legionella Antigen - Final Complete Urine Catheterized Urine PRESUMPTIVE NEGATIVE FOR LEGIONELLA P... 11/27/16 09:30 Streptococcus pneumoniae Antigen (M - Final Complete Urine Catheterized Urine PRESUMPTIVE NEGATIVE FOR STREPTOCOCCU... Imaging Last Impressions Chest X-Ray 11/28/16 0600 Signed Impressions: Service Date/Time: Monday, November 28, 2016 02:45 - CONCLUSION: Increasing consolidative infiltrate at the left lung base. Billy Ortiz MD Renal Ultrasound 11/27/16 0000 Signed Impressions: Service Date/Time: Sunday, November 27, 2016 10:02 - CONCLUSION: 1. Unremarkable ultrasound examination of the kidneys. Amarjit Lua MD Lower Extremity Ultrasound 11/27/16 0000 Signed Impressions: Service Date/Time: Sunday, November 27, 2016 09:38 - CONCLUSION: Negative for deep venous thrombosis. Jeff Pringle MD FACR Objective Remarks GENERAL: Elderly male, critically ill, sitting up on my evaluation in severe distress. SKIN: Cool and dry. HEAD: Atraumatic. Normocephalic. EYES: Pupils equal and round about 2 mm bilaterally and minimally reactive. No scleral icterus. No injection or drainage. ENT: No nasal bleeding or discharge. Mucous membranes pink and moist. on facemask o2. NECK: Trachea midline. No appreciated JVD, but difficult to assess 2/2 body habitus. Right IJ CVL clean dry and intact CARDIOVASCULAR: tachycardic rate, regular rhythm. severely hypertensive. no appreciable murmurs. RESPIRATORY: severely tachypneic. Coarse crackles appreciated bilaterally lobes. Breath sounds equal bilaterally. GASTROINTESTINAL: Abdomen slightly protuberant, nontender. no guarding. MUSCULOSKELETAL: Extremities with trace bilateral lower extremity edema. No obvious deformities. NEUROLOGICAL: Currently awake and alert and following commands. Moves all 4 extremities strongly to command. Date of Insertion: Nov 26, 2016 Line: Central Venous Catheter Side: Right Location: Internal, Jugular A/P Assessment and Plan Assessment: 86yM with possible STEMI, severe aortic stenosis, likely severe aortic regurgitation, acute respiratory distress. His valvulopathy is likely significantly contributing to his overall clinical decline and the fact that he is not improving as we would expect. He remains critically ill. His acute cardiac problems are still life-threatening. I have talked with Dr. Hassan, plan to continue diuresis and better hemodynamics control. Will need [facility] and likely work up for TAVR in the future. Neuro/Psych: Acetaminophen for fever CV: STEMI? With elevated troponin Left bundle branch block Shock - likely sepsis/rule out cardiogenic History of PAD? Lactic acidosis - resolved Elevated HDL Severe Aortic Stenosis Probable Severe aortic regurgitation -- off vasopressors. -- continue to trend CVP -- lasix 80mg iv x 1. -- SL IVF. -- Cardiology: Dr. Hassan following. -- continue 81mg ASA -- continue Lipitor daily -- continue Plavix daily -- Echo 11/27: severe aortic stenosis -- Serial troponins peaked greater than 40 currently at 30. ok to stop trending. -- start carvedilol 6.25mg po q12h. Resp: Acute hypoxemic respiratory failure likely secondary to community-acquired pneumonia as well as decompensated aortic stenosis History of COPD? -- BiPAP as needed -- lasix 80mg iv x 1, goal 1-2L negative -- nebs q4h and prn. -- GI: Elevated AST - likely cardiac related Hypoalbuminemia Patient is currently Glucerna 1.5 goal 55 cc an hour. Pepcid for GI prophylaxis Colace/Senokot for bowel regimen : Ochoa has been placed for accurate I's and O's in a critically ill patient Endo: Hyperglycemia of critical illness Sliding-scale insulin with Accu-Cheks to maintain euglycemia. Moderate regimen Check hemoglobin A1c in a.m. Renal: Acute kidney injury Unknown baseline. Negative renal ultrasound/urine lites. Rare urine eosinophils Monitor urine output.. Accurate I's and O's. Heme: Leukocytosis Thrombocytopenia Follow CBC daily. Monitor trends ID: Likely community-acquired pneumonia Day #5 Zosyn/Zithromax. plan for 7 day course (anticipated stop date 12/01) Pertinent cultures 11/26 - blood cultures 2 -no growth 11/27 UA/sputum - no growth to date. influenza negative MSK: History of sacral decubitus ulcer Decubitus prevention protocol initiated. PT evaluate and treat FEN: Hypopotassemia Hypo-magnesium Hypocalcemia Received 40 mEq potassium chloride, 2 g mag sulfate and 1 g calcium gluconate 1. Recheck in a.m. Replace electrolytes as clinically indicated Access - Right IJ CVL day #5 placed 11/26 Prophylaxis - GI - Pepcid - DVT - SCD/heparin drip This patient remains critically ill with one or more organ systems which are or may become a threat to life. I have spent in excess of 41 minutes discontinuously in the care and management of this patient. This time is exclusive of procedures, and includes, but is not limited to, evaluation of the patient, review of the medical record, discussions with family, consultants, nursing staff, or respiratory therapy, and documentation in the medical record. Rudy Ambriz MD Nov 29, 2016 08:49
[2016-11-29] MEDS: SENNOSIDES 8.6 MG TAB PO SCH ×2 (09:00→20:46)
[2016-11-29] MEDS: DOCUSATE SODIUM 100 MG CAP PO SCH ×2 (09:00→20:47)
[2016-11-29] MEDS: methylPREDNISolone SOD SUCC 40 MG/1 ML VIAL IV SCH ×2 (09:26→20:47)
[2016-11-29] MEDS: FAMOTIDINE 20 MG/2 ML VIAL IV PUSH SCH ×2 (09:26→20:47)
[2016-11-29] MEDS: CARVEDILOL 6.25 MG TAB PO SCH ×2 (09:27→20:47)
[2016-11-29] MEDS: ASPIRIN EC 81 MG TABEC PO SCH (09:27)
[2016-11-29] MEDS: CLOPIDOGREL 75 MG TAB PO SCH (09:27)
[2016-11-29] MEDS: ARTIFICIAL TEARS OPTH SOLN 15 ML BTL EACH EYE SCH ×3 (09:28→18:00)
[2016-11-29] MEDS: SODIUM CHLORIDE 0.9% FLUSH 5 ML FLUSH IV FLUSH PRN (09:28)
[2016-11-29] MEDS: SODIUM CHLORIDE 0.9% FLUSH 5 ML FLUSH IV FLUSH SCH ×2 (09:28→20:46)
[2016-11-29] MEDS: VANCOMYCIN INJ 1,500 MG in SODIUM CHLORID 0.9% 500 ML INJ 500 ML IV SCH (11:36)
[2016-11-29] MEDS: SODIUM CHLOR 0.9% 1000 ML INJ 1,000 ML IV SCH (13:23)
[2016-11-29 16:12] LABS: APTT (PATIENT) 64.7 SEC (24.3-30.1)
--- NOTE | 2016-11-29 17:26 | EC ---
Study Study Date:11/29/2016 STUDY CONCLUSIONS SUMMARY - Left ventricle: The cavity size was normal. Systolic function was moderately reduced. The estimated ejection fraction was in the range of 40% to 45%. - Aortic valve: There was severe stenosis. Severe regurgitation. Valve area: 0.83cm^2(VTI). Valve area: 0.79cm^2 (Vmax). - Mitral valve: Moderately to severely calcified annulus. Moderately calcified leaflets, . Valve area by continuity equation (using LVOT flow): 2.89cm^2. - Left atrium: The atrium was moderately dilated. - Tricuspid valve: Mild regurgitation. - Pulmonary arteries: PA peak pressure: 39mm Hg (S). If LV function is below 40, please consider prescribing an ACEI or ARB or document rationale for non-use. PROCEDURE DATA STUDY STATUS: Elective. Procedure: Transthoracic echocardiography. Image quality was good. Scanning was performed from the parasternal, apical, and subcostal acoustic windows. Study completion: The patient tolerated the procedure well. Transthoracic echocardiography. M-mode, complete 2D, complete spectral Doppler, and color Doppler. Height: Height: 69in. Weight: Weight: 192.6lb. Body mass index: BMI: 28.5kg/m^2. Body surface area: BSA: 2.03m^2. Patient status: Inpatient. CARDIAC ANATOMY LEFT VENTRICLE: The cavity size was normal. Systolic function was moderately reduced. The estimated ejection fraction was in the range of 40% to 45%. AORTIC VALVE: Severely calcified leaflets. Doppler: There was severe stenosis. Severe regurgitation. Valve area: 0.83cm^2(VTI). Indexed valve area: 0.41cm^2/m^2 (VTI). Valve area: 0.79cm^2 (Vmax). Indexed valve area: 0.39cm^2/m^2 (Vmax). Mean gradient: 34mm Hg (S). Peak gradient: 61mm Hg (S). MITRAL VALVE: Moderately to severely calcified annulus. Moderately calcified leaflets, . Doppler: There was no evidence for stenosis. Trace regurgitation. Valve area by continuity equation (using LVOT flow): 2.89cm^2. Indexed valve area by continuity equation (using LVOT flow): 1.42cm^2/m^2. Mean gradient: 2mm Hg (D). Peak gradient: 4mm Hg (D). LEFT ATRIUM: The atrium was moderately dilated. RIGHT VENTRICLE: The cavity size was normal. Systolic function was normal. PULMONIC VALVE: Not well visualized. TRICUSPID VALVE: The valve appears to be grossly normal. Doppler: There was no evidence for stenosis. Mild regurgitation. PERICARDIUM: There was no pericardial effusion. Patient weight: 192.6lb _Ejection fraction:_ 65-75% _Fractional shortening:_ 32% up to 5Kg 5-11.5Kg 11.6-22.9Kg 23-45Kg 45-57Kg Aortic Root 7-13 <17 13-22 17-27 17-27 LA diam 6-13 <23 24-38 33-47 37-40 RVID 10-17 7-15 7-15 7-18 8-17 LVIDd 12-22 <32 24-38 33-47 37-40 LVPW 2-4 3-6 5-7 6-8 7-8 IVS 2-4 3-6 5-7 6-8 7-8 BASIC MEASUREMENTS ADULT NORMAL Left ventricle LV internal dimension, ED, chordal *54.3 mm 43-52 level, PLAX LV internal dimension, ES, chordal *50.3 mm 23-38 level, PLAX Fractional shortening, chordal level, *7 % >29 PLAX LV posterior wall thickness, ED 14.7 mm IVS/LVPW ratio, ED 0.99 <1.3 Ventricular septum Septal thickness, ED 14.5 mm Aorta Root diameter, ED 40 mm DOPPLER MEASUREMENTS ADULT NORMAL Main pulmonary artery Pressure, S *39 mm Hg =30 Aortic valve Peak velocity, S 389 cm/s Mean velocity, S 275 cm/s VTI, S 24.1 cm Mean gradient, S 34 mm Hg Peak gradient, S 61 mm Hg Valve area, VTI 0.83 cm^2 Valve area index, VTI 0.41 cm^2/m^2 Valve area, Vmax 0.79 cm^2 Valve area index, Vmax 0.39 cm^2/m^2 Regurgitant velocity, ED 404 cm/s Regurgitant deceleration 4390 cm/s^2 Regurgitant pressure half-time 270 ms Regurgitant gradient, ED 65 mm Hg Mitral valve Peak E-wave velocity 98.2 cm/s Peak A-wave velocity 81.9 cm/s Mean velocity, D 65.8 cm/s Mean gradient, D 2 mm Hg Peak gradient, D 4 mm Hg Peak E/A ratio 1.2 Valve area, LVOT continuity 2.89 cm^2 Valve area index, LVOT continuity 1.42 cm^2/m^2 Tricuspid valve Regurgitant peak velocity 294 cm/s Peak RV-RA gradient, S 35 mm Hg Maximal regurgitant velocity 294 cm/s Systemic veins Estimated CVP 5 mm Hg Right ventricle RV pressure, S *40 mm Hg <30 Pulmonic valve Peak velocity, S 41.5 cm/s LEGEND: Mean values are shown as u=mean value. Asterisk (*) bonilla values outside specified normal range. Prepared and signed by Cole Hassan [id number]
[2016-11-29] MEDS ORDERED: POTASSIUM CHLOR 40 MEQ PREMIX 100 ML IV ONE (18:00)
[2016-11-29] MEDS ORDERED: FUROSEMIDE 100 MG/10 ML VIAL IV PUSH ONE (18:00)
[2016-11-29] MEDS: ATORVASTATIN 80 MG TAB PO SCH (20:46)
[2016-11-29] MEDS: AZITHROMYCIN INJ 500 MG in SODIUM CHLOR 0.9% 250 ML INJ 250 ML IV SCH (20:46)
[2016-11-29 23:05] LABS: APTT (PATIENT) 27.1 SEC (24.3-30.1)
[2016-11-30] VITALS (14 sets, daily range): BP systolic 134–152; BP diastolic 60–67; PULSE 63–92; RESP 18–25; TEMP 97–97.9; O2SAT 95–98
[2016-11-30] MEDS: PIPERACIL-TAZO 4.5 GM PREMIX 100 ML IV SCH ×4 (02:14→21:23)
[2016-11-30] MEDS: RESP: ALBUTEROL 2.5 MG/IPRATROPIUM 0.5 MG NEB (SCH) INH ×4 (03:06→17:41)
[2016-11-30] MEDS: CHLORHEXIDINE GLUCONATE 2 % 1 PACK (2 CLOTHS) TOP SCH (03:41)
[2016-11-30 04:58] LABS: AUTOMATED NEUTROPHIL # 6.8 TH/MM3 (1.8-7.7); BASOPHIL % 0.1 % (0.0-2.0); HEMO FLAGS DIFF FINAL; LYMPHOCYTE # 0.4 TH/MM3 (1.0-4.8); MEAN CELL VOLUME 96.9 FL (80.0-100.0); MEAN CORPUSCULAR HEMOGLOBIN 34.1 PG (27.0-34.0); MEAN CORPUSCULAR HGB CONC 35.2 % (32.0-36.0); MONO % 7.3 % (0.0-8.0); NEUT % 87.6 % (16.0-70.0); PLATELET COUNT 106 TH/MM3 (150-450); RED BLOOD COUNT 3.72 MIL/MM3 (4.50-5.90); RED CELL DISTRIBUTION WIDTH 13.5 % (11.6-17.2); WHITE BLOOD COUNT 7.8 TH/MM3 (4.0-11.0)
[2016-11-30 05:11] LABS: APTT (PATIENT) 54.5 SEC (24.3-30.1)
[2016-11-30 05:17] LABS: BICARBONATE 29.8 MEQ/L (21.0-32.0); POTASSIUM 3.7 MEQ/L (3.5-5.1)
[2016-11-30] MEDS: INSULIN NovoLIN REGULAR SUPPLEMENTAL SCALE SQ SCH ×4 (05:53→21:00)
[2016-11-30] MEDS: CHLORHEXIDINE 0.12% (ORAL KIT) 15 ML CUP MT SCH ×2 (08:00→20:00)
[2016-11-30] MEDS: ARTIFICIAL TEARS OPTH SOLN 15 ML BTL EACH EYE SCH ×3 (08:13→18:00)
[2016-11-30] MEDS: SODIUM CHLORIDE 0.9% FLUSH 5 ML FLUSH IV FLUSH SCH ×2 (08:13→21:23)
[2016-11-30] MEDS: SENNOSIDES 8.6 MG TAB PO SCH ×2 (08:15→21:23)
[2016-11-30] MEDS: methylPREDNISolone SOD SUCC 40 MG/1 ML VIAL IV SCH ×2 (08:15→21:21)
[2016-11-30] MEDS: CARVEDILOL 6.25 MG TAB PO SCH ×2 (08:15→21:23)
[2016-11-30] MEDS: ASPIRIN EC 81 MG TABEC PO SCH (08:15)
[2016-11-30] MEDS: CLOPIDOGREL 75 MG TAB PO SCH (08:15)
--- NOTE | 2016-11-30 08:38 | PD.CARD.PN ---
Subjective Subjective Remarks Tachyarrhythmia/SOB episode yesterday reviewed with Dr. Ambriz, appears sinus tachycardia, after decreasing HR/BP patient looked much better Currently no chest pain/SOB Objective Medications Current Medications Medications (Trade) Dose Ordered Sig/Lopez Route Start Time Stop Time Status Last Admin (Plavix) 75 mg DAILY PO 11/27/16 09:00 11/30/16 08:15 (Lipitor) 80 mg HS PO 11/26/16 21:00 11/29/16 20:46 (Heparin Inj) 5,000 units UNSCH PRN IV 11/26/16 23:45 Heparin Sodium (Porcine) 2500 units 2,500 units UNSCH PRN IV 11/26/16 23:45 Heparin Sodium/ Dextrose 250 ml @ 0 mls/hr TITRATE IV 11/26/16 17:45 11/28/16 16:15 Piperacillin Sod/ Tazobactam Sod 100 ml @ 200 mls/hr Q6H IV 11/27/16 02:00 11/30/16 08:13 Azithromycin 500 mg/Sodium Chloride 250 ml @ 250 mls/hr Q24H IV 11/26/16 20:00 11/29/16 20:46 (Vancomycin Consult Pharmacy) 0 ml @ 0 mls/hr UNSCH XX 11/26/16 19:00 (SoluMEDROL INJ) 40 mg Q12H IV 11/26/16 20:00 11/30/16 08:15 (Tylenol) 650 mg Q6H PRN PO 11/26/16 19:00 (Ativan Inj) 1 mg Q1H PRN IV 11/26/16 19:00 11/28/16 22:01 (Tears Naturale Opth Soln) 1 drop TID EACH EYE 11/27/16 09:00 11/30/16 08:13 Miscellaneous Information 1 Q361D XX 11/26/16 19:00 11/26/16 19:00 (Chlorhexidine 2% Cloth) 3 pack Taper DAILY@04 TOP 11/27/16 04:00 11/23/17 03:59 11/30/16 03:41 (Chlorhexidine 2% Cloth) 3 pack UNSCH PRN TOP 11/26/16 19:00 (Peridex 0.12% Liq) 15 ml BID@08,20 MT 11/27/16 08:00 11/28/16 08:25 (D50w (Vial) Inj) 25 ml UNSCH PRN IV PUSH 11/27/16 08:15 (Glucagon Inj) 1 mg UNSCH PRN OTHER 11/27/16 08:15 Aspirin 81 mg 81 mg DAILY PO 11/28/16 09:00 11/30/16 08:15 (Vancomycin Inj/ NS 500 ml Inj) 515 ml @ 257.5 mls/ hr Q24H IV 11/28/16 12:00 11/29/16 11:36 Miscellaneous Information SPECIFIC LAB TO BE DERIC... ONCE ONCE XX 12/01/16 11:45 12/01/16 11:46 (Pepcid Inj) 10 mg Q12HR IV PUSH 11/28/16 21:00 11/29/16 20:47 (Trandate Inj) 10 mg Q1HR PRN IV PUSH 11/28/16 19:00 (Apresoline Inj) 10 mg Q1HR PRN IV PUSH 11/28/16 19:00 (Nitroglycerin 2% Oint) 2 inch Q6HR PRN TOPICAL 11/28/16 19:00 (Coreg) 6.25 mg Q12HR PO 11/28/16 21:00 11/30/16 08:15 (Colace) 100 mg Q12HR PO 11/28/16 21:00 11/29/16 20:47 (Senokot) 8.6 mg BID PO 11/29/16 09:00 11/30/16 08:15 Vital Signs / I&O Vital Signs Date Time Temp Pulse Resp B/P Pulse Ox O2 Delivery O2 Flow Rate FiO2 11/30/16 06:00 80 11/30/16 04:00 97.0 63 20 138/63 97 11/30/16 04:00 63 11/30/16 02:00 73 11/30/16 00:00 97.8 66 25 152/67 97 11/30/16 00:00 66 11/29/16 22:00 67 11/29/16 20:11 96 Nasal Cannula 4.00 11/29/16 20:00 70 11/29/16 20:00 97.4 70 24 140/63 97 11/29/16 19:00 93 Nasal Cannula 4.00 11/29/16 18:00 81 11/29/16 16:00 71 136/65 11/29/16 16:00 71 11/29/16 16:00 97.4 71 22 136/65 97 11/29/16 14:00 94 11/29/16 12:00 70 11/29/16 12:00 97.1 70 24 130/60 97 11/29/16 10:40 98 40 11/29/16 10:00 76 11/29/16 10:00 76 132/63 I/O 11/29/16 11/29/16 11/29/16 11/30/16 11/30/16 11/30/16 07:00 15:00 23:00 07:00 15:00 23:00 Intake Total 808 ml 1089 ml 1300 ml 255 ml Output Total 425 ml 2300 ml 1950 ml 950 ml Balance 383 ml -1211 ml -650 ml -695 ml Intake Oral 200 ml 350 ml 100 ml 100 ml IV Total 608 ml 739 ml 1200 ml 155 ml Output Urine Total 425 ml 2300 ml 1950 ml 950 ml Stool Total 0 ml # Bowel Movements 0 0 Physical Exam GENERAL: NAD, comfortable SKIN: Warm and dry. HEAD: Atraumatic. Normocephalic. EYES: Pupils equal and round. No scleral icterus. No injection or drainage. ENT: No nasal bleeding or discharge. Mucous membranes pink and moist. NECK: Trachea midline. No JVD. CARDIOVASCULAR: Regular rate and rhythm. 2/6 mid to late peaking crescendo- decrescendo murmur to the RSB RESPIRATORY: Decreased breath sounds bilaterally GASTROINTESTINAL: Abdomen soft, non-tender, nondistended. Hepatic and splenic margins not palpable. MUSCULOSKELETAL: Extremities without clubbing, cyanosis, or edema. No obvious deformities. NEUROLOGICAL: Awake and alert. No obvious cranial nerve deficits. Motor grossly within normal limits. Five out of 5 muscle strength in the arms and legs. Normal speech. PSYCHIATRIC: Appropriate mood and affect; insight and judgment normal. Laboratory Laboratory Tests Test 11/29/16 11/29/16 11/30/16 15:00 20:50 04:00 Activated Partial 64.7 SEC 27.1 SEC 54.5 SEC Thromboplast Time Potassium Level 3.7 MEQ/L 3.7 MEQ/L White Blood Count 7.8 TH/MM3 Red Blood Count 3.72 MIL/MM3 Hemoglobin 12.7 GM/DL Hematocrit 36.0 % Mean Corpuscular Volume 96.9 FL Mean Corpuscular Hemoglobin 34.1 PG Mean Corpuscular Hemoglobin 35.2 % Concent Red Cell Distribution Width 13.5 % Platelet Count 106 TH/MM3 Mean Platelet Volume 9.3 FL Neutrophils (%) (Auto) 87.6 % Lymphocytes (%) (Auto) 5.0 % Monocytes (%) (Auto) 7.3 % Eosinophils (%) (Auto) 0.0 % Basophils (%) (Auto) 0.1 % Neutrophils # (Auto) 6.8 TH/MM3 Lymphocytes # (Auto) 0.4 TH/MM3 Monocytes # (Auto) 0.6 TH/MM3 Eosinophils # (Auto) 0.0 TH/MM3 Basophils # (Auto) 0.0 TH/MM3 CBC Comment DIFF FINAL Differential Comment Sodium Level 145 MEQ/L Chloride Level 104 MEQ/L Carbon Dioxide Level 29.8 MEQ/L Anion Gap 11 MEQ/L Blood Urea Nitrogen 24 MG/DL Creatinine 1.31 MG/DL Estimat Glomerular Filtration 52 ML/MIN Rate Random Glucose 130 MG/DL Calcium Level 8.0 MG/DL Assessment and Plan Problem List: (1) Septic shock (2) PNA (pneumonia) (3) NSTEMI (non-ST elevated myocardial infarction) (4) Respiratory failure (5) LBBB (left bundle branch block) (6) CONSTANTIN (acute kidney injury) (7) Aortic stenosis, severe (8) Aortic regurgitation Assessment and Plan 1) Sepsis from bilaterally PNA 2) ASA/Plavix/Heparin/Coreg 3) Severe with severe AR most likely part of his decompensation on admission and yesterday 4) Eventual ischemia work up once through acute illness, then will have to decide on how to proceed with possible CAD and /AR... he would like to go back to [place] if possible 5) Unsure if he's really a TAVR candidate with his severe AR Cole Hassan DO Nov 30, 2016 08:38
[2016-11-30] MEDS: DOCUSATE SODIUM 100 MG CAP PO SCH ×2 (09:09→21:23)
[2016-11-30] MEDS: FAMOTIDINE 20 MG/2 ML VIAL IV PUSH SCH ×2 (09:09→21:21)
--- NOTE | 2016-11-30 10:32 | HHI.PR ---
Subjective Remarks Follow-up sepsis/bilateral pneumonia/non-ST elevation SC/an episode of tachyarrhythmia 11/29/16 11/30/16-patient seen and examined; currently rate control and denies any chest pain or shortness of breath. Did not require BiPAP overnight. Vitals stable and afebrile Objective Vitals Vital Signs Date Time Temp Pulse Resp B/P Pulse Ox O2 Delivery O2 Flow Rate FiO2 11/30/16 08:36 98 Nasal Cannula 3.00 11/30/16 06:00 80 11/30/16 04:00 97.0 63 20 138/63 97 11/30/16 04:00 63 11/30/16 02:00 73 11/30/16 00:00 97.8 66 25 152/67 97 11/30/16 00:00 66 11/29/16 22:00 67 11/29/16 20:11 96 Nasal Cannula 4.00 11/29/16 20:00 70 11/29/16 20:00 97.4 70 24 140/63 97 11/29/16 19:00 93 Nasal Cannula 4.00 11/29/16 18:00 81 11/29/16 16:00 71 136/65 11/29/16 16:00 71 11/29/16 16:00 97.4 71 22 136/65 97 11/29/16 14:00 94 11/29/16 12:00 70 11/29/16 12:00 97.1 70 24 130/60 97 11/29/16 10:40 98 40 I/O 11/29/16 11/29/16 11/29/16 11/30/16 11/30/16 11/30/16 07:00 15:00 23:00 07:00 15:00 23:00 Intake Total 808 ml 1089 ml 1300 ml 255 ml Output Total 425 ml 2300 ml 1950 ml 950 ml Balance 383 ml -1211 ml -650 ml -695 ml Intake Oral 200 ml 350 ml 100 ml 100 ml IV Total 608 ml 739 ml 1200 ml 155 ml Output Urine Total 425 ml 2300 ml 1950 ml 950 ml Stool Total 0 ml # Bowel Movements 0 0 Result Diagram: 11/30/16 0400 11/30/16 040 Imaging Last Impressions Chest X-Ray 11/29/16 0600 Signed Impressions: Service Date/Time: Tuesday, November 29, 2016 04:05 - CONCLUSION: Improving aeration in the left lower lung with some mild patchy residual non- consolidative infiltrates. Billy Ortiz MD Renal Ultrasound 11/27/16 0000 Signed Impressions: Service Date/Time: Sunday, November 27, 2016 10:02 - CONCLUSION: 1. Unremarkable ultrasound examination of the kidneys. Amarjit Lua MD Lower Extremity Ultrasound 11/27/16 0000 Signed Impressions: Service Date/Time: Sunday, November 27, 2016 09:38 - CONCLUSION: Negative for deep venous thrombosis. Jeff Pringle MD FACR Objective Remarks GENERAL: NAD SKIN: Warm and dry. HEAD: Normocephalic. EYES: No scleral icterus. No injection or drainage. NECK: Supple, trachea midline. No JVD or lymphadenopathy. CARDIOVASCULAR: Regular rate and rhythm without murmurs, gallops, or rubs. RESPIRATORY: Breath sounds equal bilaterally. No accessory muscle use. GASTROINTESTINAL: Abdomen soft, non-tender, nondistended. MUSCULOSKELETAL: No cyanosis, or edema. BACK: Nontender without obvious deformity. No CVA tenderness. Date of Insertion: Nov 26, 2016 Line: Central Venous Catheter Side: Right Location: Internal, Jugular A/P Problem List: (1) NSTEMI (non-ST elevated myocardial infarction) ICD Code: I21.4 Status: Acute (2) Septic shock ICD Code: A41.9 Status: Acute (3) LBBB (left bundle branch block) ICD Code: I44.7 Status: Acute (4) Respiratory failure ICD Code: J96.90 Status: Acute (5) PNA (pneumonia) ICD Code: J18.9 Status: Acute (6) CONSTANTIN (acute kidney injury) ICD Code: N17.9 Status: Acute (7) Aortic stenosis, severe ICD Code: I35.0 Status: Acute Assessment and Plan 86-year-old male with STEMI? With elevated troponin Left bundle branch block Shock - likely sepsis/rule out cardiogenic History of PAD? Lactic acidosis - resolved Elevated HDL Severe Aortic Stenosis Probable Severe aortic regurgitation Currently on aspirin/Plavix/heparin/Coreg -- Cardiology: Dr. Hassan following. -- Echo 11/27: severe aortic stenosis Tachyrhythmia with sudden onset of respiratory distress 11/29/16: Resolved status post treatment with 12mg adenosine followed by labetalol 40mg iv x 1 day and Lasix 80mg iv x 1. Patient was placed then on BiPAP. Acute hypoxemic respiratory failure likely secondary to community-acquired pneumonia as well as decompensated aortic stenosis History of COPD? Currently stable, maintain oxygen saturation above 92%. BiPAP when necessary. Continue with DuoNeb as well as current antibiotics for bilateral pneumonia. Elevated AST - likely cardiac related Hypoalbuminemia Patient is currently Glucerna 1.5 goal 55 cc an hour. Pepcid for GI prophylaxis Colace/Senokot for bowel regimen Hyperglycemia of critical illness A1c 4.6 therefore will discontinue Sliding-scale insulin Acute kidney injury-resolving Improving renal indices,Negative renal ultrasound/urine lites. Leukocytosis-resolved Thrombocytopenia Follow CBC daily. Monitor trends Community-acquired pneumonia Day#6/7 Zosyn/Zithromax. (anticipated stop date 12/01) History of sacral decubitus ulcer Decubitus prevention protocol initiated. PT evaluate and treat Hypopotassemia-resolved [id number] Hypocalcemia Replace electrolyte per protocol Prophylaxis - GI - Pepcid - DVT - SCD/heparin Fred Sesay MD Nov 30, 2016 10:32
[2016-11-30 11:32] LABS: APTT (PATIENT) 28.3 SEC (24.3-30.1)
[2016-11-30] MEDS: VANCOMYCIN INJ 1,500 MG in SODIUM CHLORID 0.9% 500 ML INJ 500 ML IV SCH (12:30)
[2016-11-30 19:21] LABS: APTT (PATIENT) 34.6 SEC (24.3-30.1)
[2016-11-30] MEDS: AZITHROMYCIN INJ 500 MG in SODIUM CHLOR 0.9% 250 ML INJ 250 ML IV SCH (21:22)
[2016-11-30] MEDS: ATORVASTATIN 80 MG TAB PO SCH (21:23)
[2016-11-30] MEDS: HEPARIN-D5W INJ 250 ML IV SCH (21:59)
[2016-11-30] MEDS: RESP: ALBUTEROL 2.5 MG/IPRATROPIUM 0.5 MG NEB (PRN) INH (22:12)
--- NOTE | 2016-11-30 22:53 | EKG ---
Date Performed: 11/27/2016 Time Performed: 19:13:44 PTAGE: 86 years EKG: Sinus rhythm WITH OCCASIONAL SUPRAVENTRICULAR PREMATURE COMPLEXES LEFT VENTRICULAR HYPERTROPHY AND ST-T CHANGE AB NORMAL ECG PREVIOUS TRACING : 11/27/2016 14.00 Compared to prior tracing no significant change DOCTOR: Cole Hassan Interpretating Date/Time 11/30/2016 22:51:37
--- NOTE | 2016-11-30 23:33 | EKG ---
Date Performed: 11/27/2016 Time Performed: 14:00:06 PTAGE: 86 years EKG: Sinus rhythm WITH OCCASIONAL SUPRAVENTRICULAR PREMATURE COMPLEXES LEFT VENTRICULAR HYPERTROPHY AND ST-T CHANGE AB NORMAL ECG PREVIOUS TRACING : 11/27/2016 09.06 Compared to prior tracing no significant change DOCTOR: Cole Hassan Interpretating Date/Time 11/30/2016 23:31:14
[2016-12-01] VITALS (16 sets, daily range): BP systolic 132–168; BP diastolic 63–78; PULSE 63–87; RESP 16–20; TEMP 97.6–98.3; O2SAT 95–100
[2016-12-01 00:49] LABS: BICARBONATE 30.1 MEQ/L (21.0-32.0)
[2016-12-01] MEDS: PIPERACIL-TAZO 4.5 GM PREMIX 100 ML IV SCH ×4 (01:51→21:03)
[2016-12-01] MEDS: CHLORHEXIDINE GLUCONATE 2 % 1 PACK (2 CLOTHS) TOP SCH (04:00)
[2016-12-01 06:22] LABS: AUTOMATED NEUTROPHIL # 5.7 TH/MM3 (1.8-7.7); BASOPHIL % 0.6 % (0.0-2.0); HEMATOCRIT 36.1 % (39.0-51.0); LYMPH % 5.6 % (9.0-44.0); LYMPHOCYTE # 0.4 TH/MM3 (1.0-4.8); MEAN CELL VOLUME 98.1 FL (80.0-100.0); MEAN CORPUSCULAR HEMOGLOBIN 33.6 PG (27.0-34.0); MEAN CORPUSCULAR HGB CONC 34.3 % (32.0-36.0); MONO % 8.8 % (0.0-8.0); PLATELET COUNT 119 TH/MM3 (150-450); RED BLOOD COUNT 3.68 MIL/MM3 (4.50-5.90); RED CELL DISTRIBUTION WIDTH 13.3 % (11.6-17.2); WHITE BLOOD COUNT 6.7 TH/MM3 (4.0-11.0)
[2016-12-01 06:24] LABS: HEMO FLAGS AUTO DIFF
[2016-12-01 06:30] LABS: APTT (PATIENT) 45.7 SEC (24.3-30.1)
[2016-12-01] MEDS: INSULIN NovoLIN REGULAR SUPPLEMENTAL SCALE SQ SCH ×4 (07:00→21:00)
[2016-12-01] MEDS: ASPIRIN EC 81 MG TABEC PO SCH (07:54)
[2016-12-01] MEDS: CARVEDILOL 6.25 MG TAB PO SCH ×2 (07:54→21:05)
[2016-12-01] MEDS: SENNOSIDES 8.6 MG TAB PO SCH ×2 (07:54→21:00)
[2016-12-01] MEDS: methylPREDNISolone SOD SUCC 40 MG/1 ML VIAL IV SCH ×2 (07:54→21:02)
[2016-12-01] MEDS: CLOPIDOGREL 75 MG TAB PO SCH (07:55)
[2016-12-01] MEDS: CHLORHEXIDINE 0.12% (ORAL KIT) 15 ML CUP MT SCH ×2 (08:00→21:04)
[2016-12-01 08:01] LABS: BANDS 1 % (0-6); NEUTROPHIL # MANUAL DIFF 5.1 TH/MM3 (1.8-7.7); PLATELET ESTIMATE SMEAR LOW (NORMAL); PLATELET MORPHOLOGY NORMAL (NORMAL); POLYS (SEG NEUTROPHILS) 75 % (16-70); SCAN/DIFF FINAL DIFF MANUAL; WBC DIFF SAMPLE 100
[2016-12-01] MEDS: RESP: ALBUTEROL 2.5 MG/IPRATROPIUM 0.5 MG NEB (PRN) INH (08:12)
[2016-12-01] MEDS: ARTIFICIAL TEARS OPTH SOLN 15 ML BTL EACH EYE SCH ×3 (08:50→17:40)
[2016-12-01] MEDS: SODIUM CHLORIDE 0.9% FLUSH 5 ML FLUSH IV FLUSH SCH ×2 (08:50→21:04)
[2016-12-01] MEDS: FAMOTIDINE 20 MG/2 ML VIAL IV PUSH SCH ×2 (08:51→21:04)
[2016-12-01] MEDS: DOCUSATE SODIUM 100 MG CAP PO SCH ×2 (08:51→21:00)
--- NOTE | 2016-12-01 11:23 | HHI.PR ---
Subjective Remarks Follow-up sepsis/bilateral pneumonia/non-ST elevation [place]/an episode of tachyarrhythmia 11/29/16 11/30/16-patient seen and examined; currently rate control and denies any chest pain or shortness of breath. Did not require BiPAP overnight. Vitals stable and afebrile 12/01/16-patient seen and examined; denies any chest pain or shortness of breath currently satting on 4 L nasal cannula. Afebrile. Objective Vitals Vital Signs Date Time Temp Pulse Resp B/P Pulse Ox O2 Delivery O2 Flow Rate FiO2 12/01/16 10:00 76 12/01/16 08:13 95 Nasal Cannula 3.00 12/01/16 08:00 98.3 64 18 154/67 96 12/01/16 08:00 64 12/01/16 07:36 98.2 12/01/16 07:00 95 Nasal Cannula 4.00 12/01/16 06:00 63 12/01/16 04:00 63 12/01/16 04:00 97.8 63 16 144/66 98 12/01/16 02:00 67 12/01/16 00:00 97.6 66 20 132/63 97 12/01/16 00:00 66 11/30/16 22:14 98 Nasal Cannula 4.00 11/30/16 22:00 68 11/30/16 20:00 97.5 67 20 137/60 96 11/30/16 20:00 67 11/30/16 19:00 96 Nasal Cannula 3.00 50 11/30/16 18:00 67 11/30/16 16:00 97.9 70 18 145/66 98 11/30/16 16:00 70 11/30/16 14:00 77 11/30/16 12:00 97.6 70 20 134/61 95 11/30/16 12:00 70 I/O 11/30/16 11/30/16 11/30/16 12/01/16 12/01/16 12/01/16 07:00 15:00 23:00 07:00 15:00 23:00 Intake Total 255 ml 862 ml 266 ml 429 ml Output Total 950 ml 800 ml 250 ml 275 ml Balance -695 ml 62 ml 16 ml 154 ml Intake Oral 100 ml 200 ml 100 ml IV Total 155 ml 662 ml 166 ml 429 ml Output Urine Total 950 ml 800 ml 250 ml 275 ml # Bowel Movements 2 0 0 Result Diagram: 12/01/16 0612/01/16 06 Objective Remarks GENERAL: NAD SKIN: Warm and dry. HEAD: Normocephalic. EYES: No scleral icterus. No injection or drainage. NECK: Supple, trachea midline. No JVD or lymphadenopathy. CARDIOVASCULAR: Regular rate and rhythm without murmurs, gallops, or rubs. RESPIRATORY: Breath sounds equal bilaterally. No accessory muscle use. GASTROINTESTINAL: Abdomen soft, non-tender, nondistended. MUSCULOSKELETAL: No cyanosis, or edema. BACK: Nontender without obvious deformity. No CVA tenderness. Date of Insertion: Nov 26, 2016 Line: Central Venous Catheter Side: Right Location: Internal, Jugular A/P Problem List: (1) NSTEMI (non-ST elevated myocardial infarction) ICD Code: I21.4 Status: Acute (2) Septic shock ICD Code: A41.9 Status: Acute (3) LBBB (left bundle branch block) ICD Code: I44.7 Status: Acute (4) Respiratory failure ICD Code: J96.90 Status: Acute (5) PNA (pneumonia) ICD Code: J18.9 Status: Acute (6) CONSTANTIN (acute kidney injury) ICD Code: N17.9 Status: Acute (7) Aortic stenosis, severe ICD Code: I35.0 Status: Acute Assessment and Plan 86-year-old male with STEMI? With elevated troponin Left bundle branch block Shock - likely sepsis/rule out cardiogenic History of PAD? Lactic acidosis - resolved Elevated HDL Severe Aortic Stenosis Probable Severe aortic regurgitation Currently on aspirin/Plavix/heparin/Coreg -- Cardiology: Dr. Hassan following. Cardiology to plan for possible left heart catheterization .per cardiology to ensure if patient is TAVR candidate with his severe AR -- Echo 11/27: severe aortic stenosis Tachyrhythmia with sudden onset of respiratory distress 11/29/16: Resolved status post treatment with 12mg adenosine followed by labetalol 40mg iv x 1 day and Lasix 80mg iv x 1. Patient was placed then on BiPAP. Acute hypoxemic respiratory failure likely secondary to community-acquired pneumonia as well as decompensated aortic stenosis History of COPD? Currently stable, maintain oxygen saturation above 92%. BiPAP when necessary. Continue with DuoNeb as well as current antibiotics for bilateral pneumonia. Elevated AST - likely cardiac related Hypoalbuminemia Patient is currently Glucerna 1.5 goal 55 cc an hour. Pepcid for GI prophylaxis Colace/Senokot for bowel regimen Hyperglycemia of critical illness A1c 4.6 and s/p Sliding-scale insulin Acute kidney injury-resolving Improving renal indices,Negative renal ultrasound/urine lites. Leukocytosis-resolved Thrombocytopenia Follow CBC daily. Monitor trends Community-acquired pneumonia Day#05/14 Zosyn/Zithromax therefore will discontinue antibiotics after today 12/01 History of sacral decubitus ulcer Decubitus prevention protocol initiated. PT evaluate and treat Hypopotassemia-resolved [id number] Hypocalcemia Replace electrolyte per protocol Prophylaxis - GI - Pepcid - DVT - SCD/heparin drip Fred Good MD Dec 01, 2016 11:23
[2016-12-01] MEDS: VANCOMYCIN INJ 1,500 MG in SODIUM CHLORID 0.9% 500 ML INJ 500 ML IV SCH (11:30)
[2016-12-01] MEDS ORDERED: PHARMACY ORDERED LAB XX ONE (11:45)
--- NOTE | 2016-12-01 13:01 | PD.CARD.PN ---
Subjective Subjective Remarks No chest pain, still short of breath Objective Medications Current Medications Medications (Trade) Dose Ordered Sig/Lopez Route Start Time Stop Time Status Last Admin (Plavix) 75 mg DAILY PO 11/27/16 09:00 12/01/16 07:55 (Lipitor) 80 mg HS PO 11/26/16 21:00 11/30/16 21:23 (Heparin Inj) 5,000 units UNSCH PRN IV 11/26/16 23:45 Heparin Sodium (Porcine) 2500 units 2,500 units UNSCH PRN IV 11/26/16 23:45 11/30/16 12:29 Heparin Sodium/ Dextrose 250 ml @ 0 mls/hr TITRATE IV 11/26/16 17:45 11/30/16 21:59 Piperacillin Sod/ Tazobactam Sod 100 ml @ 200 mls/hr Q6H IV 11/27/16 02:00 12/01/16 23:00 12/01/16 07:55 Azithromycin 500 mg/Sodium Chloride 250 ml @ 250 mls/hr Q24H IV 11/26/16 20:00 12/01/16 23:00 11/30/16 21:22 (Vancomycin Consult Pharmacy) 0 ml @ 0 mls/hr UNSCH XX 11/26/16 19:00 (SoluMEDROL INJ) 40 mg Q12H IV 11/26/16 20:00 12/01/16 07:54 (NS Flush) 2 ml UNSCH PRN IV FLUSH 11/26/16 19:00 11/29/16 09:28 (NS Flush) 2 ml BID IV FLUSH 11/26/16 21:00 12/01/16 08:50 (Tylenol) 650 mg Q6H PRN PO 11/26/16 19:00 (Ativan Inj) 1 mg Q1H PRN IV 11/26/16 19:00 11/28/16 22:01 (Tears Naturale Opth Soln) 1 drop TID EACH EYE 11/27/16 09:00 12/01/16 08:50 Miscellaneous Information 1 Q361D XX 11/26/16 19:00 11/26/16 19:00 (Chlorhexidine 2% Cloth) 3 pack Taper DAILY@04 TOP 11/27/16 04:00 11/23/17 03:59 12/01/16 04:00 (Chlorhexidine 2% Cloth) 3 pack UNSCH PRN TOP 11/26/16 19:00 (Peridex 0.12% Liq) 15 ml BID@08,20 MT 11/27/16 08:00 12/01/16 08:00 (D50w (Vial) Inj) 25 ml UNSCH PRN IV PUSH 11/27/16 08:15 (Glucagon Inj) 1 mg UNSCH PRN OTHER 11/27/16 08:15 Aspirin 81 mg 81 mg DAILY PO 11/28/16 09:00 12/01/16 07:54 (Vancomycin Inj/ NS 500 ml Inj) 515 ml @ 257.5 mls/ hr Q24H IV 11/28/16 12:00 12/01/16 23:00 12/01/16 11:30 (Pepcid Inj) 10 mg Q12HR IV PUSH 11/28/16 21:00 11/30/16 21:21 (Trandate Inj) 10 mg Q1HR PRN IV PUSH 11/28/16 19:00 (Apresoline Inj) 10 mg Q1HR PRN IV PUSH 11/28/16 19:00 (Nitroglycerin 2% Oint) 2 inch Q6HR PRN TOPICAL 11/28/16 19:00 (Coreg) 6.25 mg Q12HR PO 11/28/16 21:00 12/01/16 07:54 (Colace) 100 mg Q12HR PO 11/28/16 21:00 11/30/16 21:23 (Senokot) 8.6 mg BID PO 11/29/16 09:00 12/01/16 07:54 Vital Signs / I&O Vital Signs Date Time Temp Pulse Resp B/P Pulse Ox O2 Delivery O2 Flow Rate FiO2 12/01/16 10:00 76 12/01/16 08:13 95 Nasal Cannula 3.00 12/01/16 08:00 98.3 64 18 154/67 96 12/01/16 08:00 64 12/01/16 07:36 98.2 12/01/16 07:00 95 Nasal Cannula 4.00 12/01/16 06:00 63 12/01/16 04:00 63 12/01/16 04:00 97.8 63 16 144/66 98 12/01/16 02:00 67 12/01/16 00:00 97.6 66 20 132/63 97 12/01/16 00:00 66 11/30/16 22:14 98 Nasal Cannula 4.00 11/30/16 22:00 68 11/30/16 20:00 97.5 67 20 137/60 96 11/30/16 20:00 67 11/30/16 19:00 96 Nasal Cannula 3.00 50 11/30/16 18:00 67 11/30/16 16:00 97.9 70 18 145/66 98 11/30/16 16:00 70 11/30/16 14:00 77 I/O 11/30/16 11/30/16 11/30/16 12/01/16 12/01/16 12/01/16 07:00 15:00 23:00 07:00 15:00 23:00 Intake Total 255 ml 862 ml 266 ml 429 ml Output Total 950 ml 800 ml 250 ml 275 ml Balance -695 ml 62 ml 16 ml 154 ml Intake Oral 100 ml 200 ml 100 ml IV Total 155 ml 662 ml 166 ml 429 ml Output Urine Total 950 ml 800 ml 250 ml 275 ml # Bowel Movements 2 0 0 Physical Exam GENERAL: NAD, comfortable SKIN: Warm and dry. HEAD: Atraumatic. Normocephalic. EYES: Pupils equal and round. No scleral icterus. No injection or drainage. ENT: No nasal bleeding or discharge. Mucous membranes pink and moist. NECK: Trachea midline. No JVD. CARDIOVASCULAR: Regular rate and rhythm. 2/6 mid to late peaking crescendo- decrescendo murmur to the RSB RESPIRATORY: Decreased breath sounds bilaterally GASTROINTESTINAL: Abdomen soft, non-tender, nondistended. Hepatic and splenic margins not palpable. MUSCULOSKELETAL: Extremities without clubbing, cyanosis, or edema. No obvious deformities. NEUROLOGICAL: Awake and alert. No obvious cranial nerve deficits. Motor grossly within normal limits. Five out of 5 muscle strength in the arms and legs. Normal speech. PSYCHIATRIC: Appropriate mood and affect; insight and judgment normal. Laboratory Laboratory Tests Test 11/30/16 12/01/16 12/01/16 18:40 00:30 06:00 Activated Partial 34.6 SEC 59.0 SEC 45.7 SEC Thromboplast Time Sodium Level 145 MEQ/L Potassium Level 4.0 MEQ/L Chloride Level 107 MEQ/L Carbon Dioxide Level 30.1 MEQ/L Anion Gap 8 MEQ/L Blood Urea Nitrogen 30 MG/DL Creatinine 1.04 MG/DL 1.06 MG/DL Estimat Glomerular Filtration 68 ML/MIN 66 ML/MIN Rate Random Glucose 132 MG/DL Calcium Level 8.4 MG/DL White Blood Count 6.7 TH/MM3 Red Blood Count 3.68 MIL/MM3 Hemoglobin 12.4 GM/DL Hematocrit 36.1 % Mean Corpuscular Volume 98.1 FL Mean Corpuscular Hemoglobin 33.6 PG Mean Corpuscular Hemoglobin 34.3 % Concent Red Cell Distribution Width 13.3 % Platelet Count 119 TH/MM3 Mean Platelet Volume 9.3 FL Neutrophils (%) (Auto) 85.0 % Lymphocytes (%) (Auto) 5.6 % Monocytes (%) (Auto) 8.8 % Eosinophils (%) (Auto) 0.0 % Basophils (%) (Auto) 0.6 % Neutrophils # (Auto) 5.7 TH/MM3 Lymphocytes # (Auto) 0.4 TH/MM3 Monocytes # (Auto) 0.6 TH/MM3 Eosinophils # (Auto) 0.0 TH/MM3 Basophils # (Auto) 0.0 TH/MM3 CBC Comment AUTO DIFF Differential Total Cells 100 Counted Neutrophils % (Manual) 75 % Band Neutrophils % 1 % Lymphocytes % 8 % Monocytes % 16 % Neutrophils # (Manual) 5.1 TH/MM3 Differential Comment FINAL DIFF MANUAL Platelet Estimate LOW Platelet Morphology Comment NORMAL Red Cell Morphology Comment NORMAL Assessment and Plan Problem List: (1) Septic shock (2) PNA (pneumonia) (3) NSTEMI (non-ST elevated myocardial infarction) (4) Respiratory failure (5) LBBB (left bundle branch block) (6) CONSTANTIN (acute kidney injury) (7) Aortic stenosis, severe (8) Aortic regurgitation Assessment and Plan 1) Sepsis from bilaterally PNA 2) ASA/Plavix/Heparin/Coreg 3) Severe with severe AR most likely part of his decompensation on admission and over the weekend 4) Eventual ischemia work up once through acute illness, then will have to decide on how to proceed with possible CAD and /AR... he would like to go back to [place] if possible, but will discuss with him and his sister as he has family here to help 5) Unsure if he's really a TAVR candidate due to his severe AR 6) Will continue to diurese, possible cath later this week Cole Hassan DO Dec 01, 2016 13:01
[2016-12-01] MEDS ORDERED: FUROSEMIDE 40 MG/4 ML VIAL IV PUSH ONE (14:00)
--- NOTE | 2016-12-01 18:37 | EKG ---
Date Performed: 11/29/2016 Time Performed: 08:12:26 PTAGE: 86 years EKG: Probable sinus tachycardia. Significant baseline artifact. Possible anteroseptal infarct - age undetermined Inferior/lateral ST-T changes may be due to myocardial ischemia When compared to pre vious tracing, the patient is now Tachycardic. Abnormal ECG PREVIOUS TRACING : 11/27/2016 19.13 DOCTOR: Emily De Jesus Interpretating Date/Time 12/01/2016 18:36:38
--- NOTE | 2016-12-01 18:38 | EKG ---
Date Performed: 11/29/2016 Time Performed: 08:20:24 PTAGE: 86 years EKG: Probable sinus tachycardia. Poor R wave progression - probable normal variant Inferior/late ral ST-T changes may be due to myocardial ischemia Since previous tracing, no significant change note d Abnormal ECG PREVIOUS TRACING : 11/29/2016 08.12 DOCTOR: Emily De Jesus Interpretating Date/Time 12/01/2016 18:37:05
--- NOTE | 2016-12-01 18:40 | EKG ---
Date Performed: 11/29/2016 Time Performed: 08:30:32 PTAGE: 86 years EKG: Probable sinus tachicardia Significant baseline artifact, precluding any further interpreta tion, Consider repeat EKG. Septal ST elevation, CONSIDER ACUTE INFARCT Extensive ST-T changes are non specific Abnormal ECG PREVIOUS TRACING : 11/29/2016 08.20 DOCTOR: Emily De Jesus Interpretating Date/Time 12/01/2016 18:39:36
--- NOTE | 2016-12-01 18:42 | EKG ---
Date Performed: 11/29/2016 Time Performed: 08:31:08 PTAGE: 86 years EKG: Sinus tachycardia, precludes the extensiveST depression Extensive ST-T changes suggest myoc ardial injury/ischemia Likely no significant change. Abnormal ECG PREVIOUS TRACING : 11/29/2016 08.30 DOCTOR: Emily De Jesus Interpretating Date/Time 12/01/2016 18:40:38
[2016-12-01] MEDS: AZITHROMYCIN INJ 500 MG in SODIUM CHLOR 0.9% 250 ML INJ 250 ML IV SCH (21:03)
[2016-12-01] MEDS: ATORVASTATIN 80 MG TAB PO SCH (21:05)
[2016-12-02] VITALS (16 sets, daily range): BP systolic 139–195; BP diastolic 63–84; PULSE 60–89; RESP 20–40; TEMP 97.6–98; O2SAT 81–100
[2016-12-02] MEDS: CHLORHEXIDINE GLUCONATE 2 % 1 PACK (2 CLOTHS) TOP SCH (04:00)
[2016-12-02] MEDS: HEPARIN-D5W INJ 250 ML IV SCH ×2 (04:33→10:21)
[2016-12-02 06:31] LABS: HEMATOCRIT 37.2 % (39.0-51.0); MEAN CELL VOLUME 96.6 FL (80.0-100.0); MEAN CORPUSCULAR HEMOGLOBIN 34.1 PG (27.0-34.0); MEAN CORPUSCULAR HGB CONC 35.3 % (32.0-36.0); PLATELET COUNT 132 TH/MM3 (150-450); RED BLOOD COUNT 3.85 MIL/MM3 (4.50-5.90); RED CELL DISTRIBUTION WIDTH 13.2 % (11.6-17.2); REVIEW FLAG FINAL; WHITE BLOOD COUNT 10.6 TH/MM3 (4.0-11.0)
[2016-12-02] MEDS: INSULIN NovoLIN REGULAR SUPPLEMENTAL SCALE SQ SCH ×4 (07:00→21:00)
[2016-12-02] MEDS: hydrALAZINE HCL 20 MG/ML VIAL IV PUSH PRN ×2 (07:33→18:50)
[2016-12-02] MEDS: LORazepam 2 MG/ML VIAL IV PRN (07:34)
[2016-12-02 07:42] LABS: APTT (PATIENT) 41.3 SEC (24.3-30.1)
[2016-12-02] MEDS: CHLORHEXIDINE 0.12% (ORAL KIT) 15 ML CUP MT SCH ×2 (08:00→21:04)
[2016-12-02] MEDS: CARVEDILOL 6.25 MG TAB PO SCH ×2 (09:00→21:04)
[2016-12-02] MEDS: ASPIRIN EC 81 MG TABEC PO SCH (09:00)
[2016-12-02] MEDS: methylPREDNISolone SOD SUCC 40 MG/1 ML VIAL IV SCH (09:00)
[2016-12-02] MEDS: DOCUSATE SODIUM 100 MG CAP PO SCH (09:00)
[2016-12-02] MEDS: SENNOSIDES 8.6 MG TAB PO SCH (09:00)
[2016-12-02] MEDS: FUROSEMIDE 20 MG/2 ML VIAL IV PUSH SCH (09:00)
[2016-12-02] MEDS: FAMOTIDINE 20 MG/2 ML VIAL IV PUSH SCH ×2 (09:00→21:04)
[2016-12-02] MEDS: CLOPIDOGREL 75 MG TAB PO SCH (09:00)
[2016-12-02] MEDS: SODIUM CHLORIDE 0.9% FLUSH 5 ML FLUSH IV FLUSH SCH ×2 (09:01→21:04)
[2016-12-02] MEDS: ARTIFICIAL TEARS OPTH SOLN 15 ML BTL EACH EYE SCH ×3 (09:01→18:28)
--- NOTE | 2016-12-02 09:27 | HHI.PR ---
Subjective Remarks Patient seen in follow-up for resolving pneumonia, severe aortic stenosis, acute hypoxemic respiratory failure. Discussed with RN. Patient anxious this morning. Tachypneic which he attributes to anxiety. No chest pain. Objective Vitals Vital Signs Date Time Temp Pulse Resp B/P Pulse Ox O2 Delivery O2 Flow Rate FiO2 12/02/16 07:37 94 Nasal Cannula 4.00 12/02/16 07:23 97.7 12/02/16 07:00 94 Nasal Cannula 4.00 12/02/16 06:00 85 12/02/16 04:00 60 12/02/16 04:00 97.9 72 20 139/63 97 12/02/16 02:00 61 12/02/16 00:00 98.0 62 22 147/66 100 12/02/16 00:00 62 12/01/16 22:53 100 Nasal Cannula 4.00 12/01/16 22:00 65 12/01/16 20:00 98.1 69 20 159/78 95 12/01/16 20:00 69 12/01/16 19:00 96 Nasal Cannula 4.00 12/01/16 18:00 87 12/01/16 16:00 98.0 18 151/67 96 12/01/16 16:00 65 12/01/16 14:30 67 149/65 98 12/01/16 14:00 71 12/01/16 14:00 98.1 71 16 168/72 95 12/01/16 12:00 72 12/01/16 10:00 76 I/O 12/01/16 12/01/16 12/01/16 12/02/16 12/02/16 12/02/16 07:00 15:00 23:00 07:00 15:00 23:00 Intake Total 429 ml 906 ml 303 ml 377 ml Output Total 275 ml 475 ml 2251 ml 550 ml Balance 154 ml 431 ml -1948 ml -173 ml Intake Oral 20 ml 20 ml 20 ml IV Total 429 ml 886 ml 283 ml 357 ml Output Urine Total 275 ml 475 ml 2250 ml 550 ml Stool Total 1 ml 0 ml # Bowel Movements 0 Result Diagram: 12/02/16 0601 12/01/16 06 Imaging Last Impressions Chest X-Ray 11/29/16 06 Signed Impressions: Service Date/Time: Tuesday, November 29, 2016 04:05 - CONCLUSION: Improving aeration in the left lower lung with some mild patchy residual non- consolidative infiltrates. Billy Ortiz MD Renal Ultrasound 11/27/16 0000 Signed Impressions: Service Date/Time: Sunday, November 27, 2016 10:02 - CONCLUSION: 1. Unremarkable ultrasound examination of the kidneys. Amarjit Lua MD Lower Extremity Ultrasound 11/27/16 0000 Signed Impressions: Service Date/Time: Sunday, November 27, 2016 09:38 - CONCLUSION: Negative for deep venous thrombosis. Jeff Pringle MD FACR Objective Remarks GENERAL: This is a well-nourished, well-developed patient, tachypneic at rest. CARDIOVASCULAR: Normal rate and regular rhythm. 2/6 SUMIT best heard upper right sternal border. RESPIRATORY: Tachypneic. Good respiratory efforts. Breath sounds equal and clear to auscultation bilaterally. GASTROINTESTINAL: Abdomen soft, non-tender, non-distended. Normal active bowel sounds MUSCULOSKELETAL: Extremities without cyanosis, or edema. NEURO: Alert & Oriented x4 to person, place, time, situation. Moves all ext x4 PSYCH: Appropriate mood and affect. Date of Insertion: Nov 26, 2016 Line: Central Venous Catheter Side: Right Location: Internal, Jugular A/P Problem List: (1) NSTEMI (non-ST elevated myocardial infarction) ICD Code: I21.4 Status: Acute (2) Septic shock ICD Code: A41.9 Status: Acute (3) LBBB (left bundle branch block) ICD Code: I44.7 Status: Acute (4) Respiratory failure ICD Code: J96.90 Status: Acute (5) PNA (pneumonia) ICD Code: J18.9 Status: Acute (6) CONSTANTIN (acute kidney injury) ICD Code: N17.9 Status: Acute (7) Aortic stenosis, severe ICD Code: I35.0 Status: Acute Assessment and Plan 86-year-old male with Acute hypoxemic respiratory failure likely due to combination of pneumonia and decompensated aortic stenosis History of COPD? -Currently stable, maintain oxygen saturation above 92%. BiPAP as needed. Continue with DuoNeb. Patient completed a course of antibiotics with Vancomycin , Zosyn, and Azithromycin. - Continue Ativan PRN anxiety which contributes to hyperventilation. - Switch Solumedrol to Prednisone 20 mg BID to wean off. Elevated troponin/Severe aortic stenosis: -Appreciate cardiology follow-up. Aspirin, Plavix, heparin drip, and Coreg. - Cardiology considering heart catheterization when the patient respiratory status is more stable. Unsure if he is a candidate for valve replacement. - Continue diuresis History of sacral decubitus ulcer Decubitus prevention protocol initiated. PT evaluate and treat Prophylaxis - GI - Pepcid - DVT - SCD/heparin drip Discharge Planning Keep in ICU. Patient at high risk for further respiratory decline. He remains tachypneic and has severe . Joy Brown MD Dec 02, 2016 09:27
[2016-12-02] MEDS ORDERED: DOCUSATE SODIUM 100 MG CAP PO PRN (09:30)
--- NOTE | 2016-12-02 16:16 | PD.CARD.PN ---
Subjective Subjective Remarks No chest pain, still appears tachypneic Objective Medications Current Medications Medications (Trade) Dose Ordered Sig/Lopez Route Start Time Stop Time Status Last Admin (Plavix) 75 mg DAILY PO 11/27/16 09:00 12/02/16 09:00 (Lipitor) 80 mg HS PO 11/26/16 21:00 12/01/16 21:05 (Heparin Inj) 5,000 units UNSCH PRN IV 11/26/16 23:45 Heparin Sodium (Porcine) 2500 units 2,500 units UNSCH PRN IV 11/26/16 23:45 11/30/16 12:29 (Heparin-D5W Inj) 250 ml @ 0 mls/hr TITRATE IV 11/26/16 17:45 12/02/16 10:21 (NS Flush) 2 ml UNSCH PRN IV FLUSH 11/26/16 19:00 11/29/16 09:28 (NS Flush) 2 ml BID IV FLUSH 11/26/16 21:00 12/02/16 09:01 (Tylenol) 650 mg Q6H PRN PO 11/26/16 19:00 (Tears Naturale Opth Soln) 1 drop TID EACH EYE 11/27/16 09:00 12/02/16 13:20 Miscellaneous Information 1 Q361D XX 11/26/16 19:00 11/26/16 19:00 (Chlorhexidine 2% Cloth) Taper DAILY@04 TOP 11/27/16 04:00 11/23/17 03:59 12/02/16 04:00 (Chlorhexidine 2% Cloth) 3 pack UNSCH PRN TOP 11/26/16 19:00 (Peridex 0.12% Liq) 15 ml BID@08,20 MT 11/27/16 08:00 12/01/16 21:04 (D50w (Vial) Inj) 25 ml UNSCH PRN IV PUSH 11/27/16 08:15 (Glucagon Inj) 1 mg UNSCH PRN OTHER 11/27/16 08:15 (Ecotrin Ec) 81 mg DAILY PO 11/28/16 09:00 12/02/16 09:00 (Pepcid Inj) 10 mg Q12HR IV PUSH 11/28/16 21:00 12/02/16 09:00 (Trandate Inj) 10 mg Q1HR PRN IV PUSH 11/28/16 19:00 (Apresoline Inj) 10 mg Q1HR PRN IV PUSH 11/28/16 19:00 12/02/16 07:33 (Nitroglycerin 2% Oint) 2 inch Q6HR PRN TOPICAL 11/28/16 19:00 (Coreg) 6.25 mg Q12HR PO 11/28/16 21:00 12/02/16 09:00 (Lasix Inj) 20 mg DAILY IV PUSH 12/02/16 09:00 12/02/16 09:00 (Colace) 100 mg Q12HR PRN PO 12/02/16 09:30 (Deltasone) 20 mg BID PO 12/02/16 21:00 (Ativan Inj) 1 mg Q4H PRN IV PUSH 12/02/16 09:30 Vital Signs / I&O Vital Signs Date Time Temp Pulse Resp B/P Pulse Ox O2 Delivery O2 Flow Rate FiO2 12/02/16 12:00 66 26 100 12/02/16 12:00 66 12/02/16 10:00 89 12/02/16 08:00 77 38 161/69 97 12/02/16 08:00 77 12/02/16 07:37 94 Nasal Cannula 4.00 12/02/16 07:23 97.7 12/02/16 07:00 94 Nasal Cannula 4.00 12/02/16 06:00 85 12/02/16 04:00 60 12/02/16 04:00 97.9 72 20 139/63 97 12/02/16 02:00 61 12/02/16 00:00 98.0 62 22 147/66 100 12/02/16 00:00 62 12/01/16 22:53 100 Nasal Cannula 4.00 12/01/16 22:00 65 12/01/16 20:00 98.1 69 20 159/78 95 12/01/16 20:00 69 12/01/16 19:00 96 Nasal Cannula 4.00 12/01/16 18:00 87 I/O 12/01/16 12/01/16 12/01/16 12/02/16 12/02/16 12/02/16 07:00 15:00 23:00 07:00 15:00 23:00 Intake Total 429 ml 906 ml 303 ml 377 ml 213 ml Output Total 275 ml 475 ml 2251 ml 550 ml 1776 ml Balance 154 ml 431 ml -1948 ml -173 ml -1563 ml Intake Oral 20 ml 20 ml 20 ml 50 ml IV Total 429 ml 886 ml 283 ml 357 ml 163 ml Output Urine Total 275 ml 475 ml 2250 ml 550 ml 1775 ml Stool Total 1 ml 0 ml 1 ml # Bowel Movements 0 Physical Exam GENERAL: NAD, comfortable, mildly tachypneic SKIN: Warm and dry. HEAD: Atraumatic. Normocephalic. EYES: Pupils equal and round. No scleral icterus. No injection or drainage. ENT: No nasal bleeding or discharge. Mucous membranes pink and moist. NECK: Trachea midline. No JVD. CARDIOVASCULAR: Regular rate and rhythm. 2/6 mid to late peaking crescendo- decrescendo murmur to the RSB RESPIRATORY: Decreased breath sounds bilaterally GASTROINTESTINAL: Abdomen soft, non-tender, nondistended. Hepatic and splenic margins not palpable. MUSCULOSKELETAL: Extremities without clubbing, cyanosis, or edema. No obvious deformities. NEUROLOGICAL: Awake and alert. No obvious cranial nerve deficits. Motor grossly within normal limits. Five out of 5 muscle strength in the arms and legs. Normal speech. PSYCHIATRIC: Appropriate mood and affect; insight and judgment normal. Laboratory Laboratory Tests Test 12/02/16 12/02/16 06:01 07:20 White Blood Count 10.6 TH/MM3 Red Blood Count 3.85 MIL/MM3 Hemoglobin 13.1 GM/DL Hematocrit 37.2 % Mean Corpuscular Volume 96.6 FL Mean Corpuscular Hemoglobin 34.1 PG Mean Corpuscular Hemoglobin 35.3 % Concent Red Cell Distribution Width 13.2 % Platelet Count 132 TH/MM3 Mean Platelet Volume 9.4 FL Activated Partial 41.3 SEC Thromboplast Time Assessment and Plan Problem List: (1) Septic shock (2) PNA (pneumonia) (3) NSTEMI (non-ST elevated myocardial infarction) (4) Respiratory failure (5) LBBB (left bundle branch block) (6) CONSTANTIN (acute kidney injury) (7) Aortic stenosis, severe (8) Aortic regurgitation Assessment and Plan 1) Sepsis from bilaterally PNA 2) ASA/Plavix/Heparin/Coreg 3) Severe with severe AR most likely part of his decompensation on admission and over the weekend 4) Eventual ischemia work up once through acute illness, then will have to decide on how to proceed with possible CAD and /AR... he would like to go back to [place] if possible, but will discuss with him and his sister as he has family here to help 5) Unsure if he's really a TAVR candidate due to his severe AR 6) Will continue to diurese, possible cath later this week, still not able to lay flat for the cath at this time Cole Hassan DO Dec 02, 2016 16:16
[2016-12-02] MEDS: RESP: ALBUTEROL 2.5 MG/IPRATROPIUM 0.5 MG NEB (PRN) INH (20:10)
[2016-12-02] MEDS: ATORVASTATIN 80 MG TAB PO SCH (21:05)
[2016-12-02] MEDS: predniSONE 20 MG TAB PO SCH (21:05)
[2016-12-02] MEDS: LORazepam 2 MG/ML VIAL IV PUSH PRN (21:45)
[2016-12-03] VITALS (14 sets, daily range): BP systolic 119–168; BP diastolic 53–74; PULSE 60–80; RESP 22–28; TEMP 97.7–98.4; O2SAT 95–99
[2016-12-03] MEDS: CHLORHEXIDINE GLUCONATE 2 % 1 PACK (2 CLOTHS) TOP SCH (04:00)
[2016-12-03 06:07] LABS: HEMATOCRIT 38.8 % (39.0-51.0); MEAN CELL VOLUME 96.5 FL (80.0-100.0); MEAN CORPUSCULAR HEMOGLOBIN 34.8 PG (27.0-34.0); PLATELET COUNT 154 TH/MM3 (150-450); RED BLOOD COUNT 4.03 MIL/MM3 (4.50-5.90); RED CELL DISTRIBUTION WIDTH 12.9 % (11.6-17.2)
[2016-12-03 06:08] LABS: REVIEW FLAG FINAL
[2016-12-03 06:17] LABS: APTT (PATIENT) 38.6 SEC (24.3-30.1)
[2016-12-03 06:27] LABS: BICARBONATE 30.7 MEQ/L (21.0-32.0); POTASSIUM 3.7 MEQ/L (3.5-5.1)
[2016-12-03] MEDS: INSULIN NovoLIN REGULAR SUPPLEMENTAL SCALE SQ SCH ×4 (07:00→20:14)
[2016-12-03] MEDS: ARTIFICIAL TEARS OPTH SOLN 15 ML BTL EACH EYE SCH ×3 (09:00→18:31)
[2016-12-03] MEDS: predniSONE 20 MG TAB PO SCH ×2 (09:00→20:14)
--- NOTE | 2016-12-03 09:20 | HHI.PR ---
Subjective Remarks Patient seen in follow-up for resolving pneumonia, severe aortic stenosis, acute hypoxemic respiratory failure. Patient reports that he is feeling better today. breathing improved. Much less tachypneic. No chest pain. Objective Vitals Vital Signs Date Time Temp Pulse Resp B/P Pulse Ox O2 Delivery O2 Flow Rate FiO2 12/03/16 06:00 63 12/03/16 04:00 61 12/03/16 04:00 98.0 61 26 143/65 95 12/03/16 02:00 62 12/03/16 00:00 65 12/03/16 00:00 97.8 65 28 119/53 96 12/02/16 22:00 70 12/02/16 20:08 99 Nasal Cannula 3.00 12/02/16 20:00 97.6 74 26 146/66 94 12/02/16 20:00 74 12/02/16 19:00 96 Nasal Cannula 4.00 12/02/16 18:00 89 12/02/16 18:00 97.8 89 40 98 12/02/16 17:20 195/84 12/02/16 16:00 77 33 92 12/02/16 16:00 77 12/02/16 14:00 82 12/02/16 14:00 97.9 82 31 81 12/02/16 12:00 66 26 100 12/02/16 12:00 66 12/02/16 10:00 89 I/O 12/02/16 12/02/16 12/02/16 12/03/16 12/03/16 12/03/16 07:00 15:00 23:00 07:00 15:00 23:00 Intake Total 377 ml 213 ml 257 ml 184 ml Output Total 550 ml 1776 ml 450 ml 300 ml Balance -173 ml -1563 ml -193 ml -116 ml Intake Oral 20 ml 50 ml 120 ml 140 ml IV Total 357 ml 163 ml 137 ml 44 ml Output Urine Total 550 ml 1775 ml 450 ml 300 ml Stool Total 0 ml 1 ml 0 ml 0 ml Result Diagram: 12/03/16 0547 12/03/16 0547 Objective Remarks GENERAL: This is a well-nourished, well-developed patient, tachypneic at rest. CARDIOVASCULAR: Normal rate and regular rhythm. 2/6 SUMIT, more pronounced at the LUSB. RESPIRATORY: Tachypneic. Good respiratory efforts. Breath sounds equal and clear to auscultation bilaterally. GASTROINTESTINAL: Abdomen soft, non-tender, non-distended. Normal active bowel sounds MUSCULOSKELETAL: Extremities without cyanosis, or edema. NEURO: Alert & Oriented x4 to person, place, time, situation. Moves all ext x4 PSYCH: Appropriate mood and affect. Date of Insertion: Nov 26, 2016 Line: Central Venous Catheter Side: Right Location: Internal, Jugular A/P Problem List: (1) NSTEMI (non-ST elevated myocardial infarction) ICD Code: I21.4 Status: Acute (2) Septic shock ICD Code: A41.9 Status: Acute (3) LBBB (left bundle branch block) ICD Code: I44.7 Status: Acute (4) Respiratory failure ICD Code: J96.90 Status: Acute (5) PNA (pneumonia) ICD Code: J18.9 Status: Acute (6) CONSTANTIN (acute kidney injury) ICD Code: N17.9 Status: Acute (7) Aortic stenosis, severe ICD Code: I35.0 Status: Acute Assessment and Plan 86-year-old male with Acute hypoxemic respiratory failure likely due to combination of pneumonia and decompensated aortic stenosis History of COPD? -Currently stable, maintain oxygen saturation above 92%. BiPAP as needed. Continue with DuoNeb. Patient completed a course of antibiotics with Vancomycin , Zosyn, and Azithromycin. - Continue Ativan PRN anxiety which contributes to hyperventilation. - Continue Prednisone 20 mg BID to wean off. Elevated troponin/Severe aortic stenosis: -Appreciate cardiology follow-up. Aspirin, Plavix, heparin drip, and Coreg. - Cardiology planning for heart cath when the patient respiratory status is more stable. Unsure if he is a candidate for valve replacement. - Continue diuresis. He is responding well. History of sacral decubitus ulcer Decubitus prevention protocol initiated. PT evaluate and treat Prophylaxis - GI - Pepcid - DVT - SCD/heparin drip Discharge Planning Improved. OK to transfer to [facility] Joy Brown MD Dec 03, 2016 09:20
--- NOTE | 2016-12-03 09:22 | PD.CARD.PN ---
Subjective Subjective Remarks No chest pain, no shortness of breath, doing better today Objective Medications Current Medications Medications (Trade) Dose Ordered Sig/Lopez Route Start Time Stop Time Status Last Admin (Plavix) 75 mg DAILY PO 11/27/16 09:00 12/02/16 09:00 (Lipitor) 80 mg HS PO 11/26/16 21:00 12/02/16 21:05 (Heparin Inj) 5,000 units UNSCH PRN IV 11/26/16 23:45 Heparin Sodium (Porcine) 2500 units 2,500 units UNSCH PRN IV 11/26/16 23:45 11/30/16 12:29 (Heparin-D5W Inj) 250 ml @ 0 mls/hr TITRATE IV 11/26/16 17:45 12/02/16 10:21 (NS Flush) 2 ml UNSCH PRN IV FLUSH 11/26/16 19:00 11/29/16 09:28 (NS Flush) 2 ml BID IV FLUSH 11/26/16 21:00 12/02/16 21:04 (Tylenol) 650 mg Q6H PRN PO 11/26/16 19:00 (Tears Naturale Opth Soln) 1 drop TID EACH EYE 11/27/16 09:00 12/02/16 18:28 Miscellaneous Information 1 Q361D XX 11/26/16 19:00 11/26/16 19:00 (Chlorhexidine 2% Cloth) Taper DAILY@04 TOP 11/27/16 04:00 11/23/17 03:59 12/03/16 04:00 (Chlorhexidine 2% Cloth) 3 pack UNSCH PRN TOP 11/26/16 19:00 (Peridex 0.12% Liq) 15 ml BID@08,20 MT 11/27/16 08:00 12/02/16 21:04 (D50w (Vial) Inj) 25 ml UNSCH PRN IV PUSH 11/27/16 08:15 (Glucagon Inj) 1 mg UNSCH PRN OTHER 11/27/16 08:15 (Ecotrin Ec) 81 mg DAILY PO 11/28/16 09:00 12/02/16 09:00 (Pepcid Inj) 10 mg Q12HR IV PUSH 11/28/16 21:00 12/02/16 21:04 (Trandate Inj) 10 mg Q1HR PRN IV PUSH 11/28/16 19:00 (Apresoline Inj) 10 mg Q1HR PRN IV PUSH 11/28/16 19:00 12/02/16 18:50 (Nitroglycerin 2% Oint) 2 inch Q6HR PRN TOPICAL 11/28/16 19:00 (Coreg) 6.25 mg Q12HR PO 11/28/16 21:00 12/02/16 21:04 (Lasix Inj) 20 mg DAILY IV PUSH 12/02/16 09:00 12/02/16 09:00 (Colace) 100 mg Q12HR PRN PO 12/02/16 09:30 (Deltasone) 20 mg BID PO 12/02/16 21:00 12/02/16 21:05 (Ativan Inj) 1 mg Q4H PRN IV PUSH 12/02/16 09:30 12/02/16 21:45 Vital Signs / I&O Vital Signs Date Time Temp Pulse Resp B/P Pulse Ox O2 Delivery O2 Flow Rate FiO2 12/03/16 06:00 63 12/03/16 04:00 61 12/03/16 04:00 98.0 61 26 143/65 95 12/03/16 02:00 62 12/03/16 00:00 65 12/03/16 00:00 97.8 65 28 119/53 96 12/02/16 22:00 70 12/02/16 20:08 99 Nasal Cannula 3.00 12/02/16 20:00 97.6 74 26 146/66 94 12/02/16 20:00 74 12/02/16 19:00 96 Nasal Cannula 4.00 12/02/16 18:00 89 12/02/16 18:00 97.8 89 40 98 12/02/16 17:20 195/84 12/02/16 16:00 77 33 92 12/02/16 16:00 77 12/02/16 14:00 82 12/02/16 14:00 97.9 82 31 81 12/02/16 12:00 66 26 100 12/02/16 12:00 66 12/02/16 10:00 89 I/O 12/02/16 12/02/16 12/02/16 12/03/16 12/03/16 12/03/16 07:00 15:00 23:00 07:00 15:00 23:00 Intake Total 377 ml 213 ml 257 ml 184 ml Output Total 550 ml 1776 ml 450 ml 300 ml Balance -173 ml -1563 ml -193 ml -116 ml Intake Oral 20 ml 50 ml 120 ml 140 ml IV Total 357 ml 163 ml 137 ml 44 ml Output Urine Total 550 ml 1775 ml 450 ml 300 ml Stool Total 0 ml 1 ml 0 ml 0 ml Physical Exam GENERAL: NAD, comfortable SKIN: Warm and dry. HEAD: Atraumatic. Normocephalic. EYES: Pupils equal and round. No scleral icterus. No injection or drainage. ENT: No nasal bleeding or discharge. Mucous membranes pink and moist. NECK: Trachea midline. No JVD. CARDIOVASCULAR: Regular rate and rhythm. 2/6 mid to late peaking crescendo- decrescendo murmur to the RSB RESPIRATORY: Decreased breath sounds bilaterally GASTROINTESTINAL: Abdomen soft, non-tender, nondistended. Hepatic and splenic margins not palpable. MUSCULOSKELETAL: Extremities without clubbing, cyanosis, or edema. No obvious deformities. NEUROLOGICAL: Awake and alert. No obvious cranial nerve deficits. Motor grossly within normal limits. Five out of 5 muscle strength in the arms and legs. Normal speech. PSYCHIATRIC: Appropriate mood and affect; insight and judgment normal. Laboratory Laboratory Tests Test 12/03/16 05:47 White Blood Count 11.0 TH/MM3 Red Blood Count 4.03 MIL/MM3 Hemoglobin 14.0 GM/DL Hematocrit 38.8 % Mean Corpuscular Volume 96.5 FL Mean Corpuscular Hemoglobin 34.8 PG Mean Corpuscular Hemoglobin 36.0 % Concent Red Cell Distribution Width 12.9 % Platelet Count 154 TH/MM3 Mean Platelet Volume 9.4 FL Activated Partial 38.6 SEC Thromboplast Time Sodium Level 143 MEQ/L Potassium Level 3.7 MEQ/L Chloride Level 105 MEQ/L Carbon Dioxide Level 30.7 MEQ/L Anion Gap 7 MEQ/L Blood Urea Nitrogen 28 MG/DL Creatinine 0.88 MG/DL Estimat Glomerular Filtration 82 ML/MIN Rate Random Glucose 143 MG/DL Calcium Level 8.9 MG/DL Assessment and Plan Problem List: (1) Septic shock (2) PNA (pneumonia) (3) NSTEMI (non-ST elevated myocardial infarction) (4) Respiratory failure (5) LBBB (left bundle branch block) (6) CONSTANTIN (acute kidney injury) (7) Aortic stenosis, severe (8) Aortic regurgitation Assessment and Plan 1) Sepsis from bilaterally PNA 2) ASA/Heparin/Coreg... will stop Plavix in case he needs CT surgery 3) Severe with severe AR most likely part of his decompensation on admission and over the weekend 4) Plan on cardiac catheterization tomorrow in the morning, NPO after midnight 5) Unsure if he's really a TAVR candidate due to his severe AR, will wait to see if he has CAD and will have to discuss with CT surgery and the patient if he would like to stay for further work up Cole Hassan DO Dec 03, 2016 09:22
[2016-12-03] MEDS: FUROSEMIDE 20 MG/2 ML VIAL IV PUSH SCH (10:54)
[2016-12-03] MEDS: CARVEDILOL 6.25 MG TAB PO SCH ×2 (10:55→20:14)
[2016-12-03] MEDS: FAMOTIDINE 20 MG/2 ML VIAL IV PUSH SCH ×2 (10:55→20:14)
[2016-12-03] MEDS: SODIUM CHLORIDE 0.9% FLUSH 5 ML FLUSH IV FLUSH SCH ×2 (10:55→19:14)
[2016-12-03] MEDS: ASPIRIN EC 81 MG TABEC PO SCH (10:55)
[2016-12-03] MEDS: CHLORHEXIDINE 0.12% (ORAL KIT) 15 ML CUP MT SCH ×2 (10:55→20:00)
[2016-12-03 12:25] LABS: APTT (PATIENT) 35.5 SEC (24.3-30.1)
[2016-12-03] MEDS: HEPARIN-D5W INJ 250 ML IV SCH (17:54)
[2016-12-03 18:16] LABS: APTT (PATIENT) 45.5 SEC (24.3-30.1)
[2016-12-03] MEDS: hydrALAZINE HCL 20 MG/ML VIAL IV PUSH PRN (19:14)
[2016-12-03] MEDS: ATORVASTATIN 80 MG TAB PO SCH (20:14)
[2016-12-04] VITALS (16 sets, daily range): BP systolic 129–174; BP diastolic 59–87; PULSE 21–82; RESP 20–31; TEMP 97.7–98.8; O2SAT 94–100
[2016-12-04 00:20] LABS: APTT (PATIENT) 63.7 SEC (24.3-30.1)
[2016-12-04] MEDS: LORazepam 2 MG/ML VIAL IV PUSH PRN (03:29)
[2016-12-04] MEDS: CHLORHEXIDINE GLUCONATE 2 % 1 PACK (2 CLOTHS) TOP SCH (04:00)
[2016-12-04] MEDS: INSULIN NovoLIN REGULAR SUPPLEMENTAL SCALE SQ SCH ×4 (06:18→21:00)
[2016-12-04 07:22] LABS: APTT (PATIENT) 73.7 SEC (24.3-30.1)
[2016-12-04 07:32] LABS: BICARBONATE 32.4 MEQ/L (21.0-32.0); POTASSIUM 3.7 MEQ/L (3.5-5.1)
[2016-12-04] MEDS: CHLORHEXIDINE 0.12% (ORAL KIT) 15 ML CUP MT SCH ×2 (08:05→20:00)
[2016-12-04] MEDS: ARTIFICIAL TEARS OPTH SOLN 15 ML BTL EACH EYE SCH ×3 (08:05→18:00)
[2016-12-04] MEDS: ASPIRIN EC 81 MG TABEC PO SCH (08:06)
[2016-12-04] MEDS: predniSONE 20 MG TAB PO SCH (08:06)
[2016-12-04] MEDS: CARVEDILOL 6.25 MG TAB PO SCH ×2 (08:06→21:57)
[2016-12-04] MEDS: SODIUM CHLORIDE 0.9% FLUSH 5 ML FLUSH IV FLUSH SCH (08:06)
[2016-12-04] MEDS: FUROSEMIDE 20 MG/2 ML VIAL IV PUSH SCH (08:06)
[2016-12-04] MEDS: FAMOTIDINE 20 MG/2 ML VIAL IV PUSH SCH (08:06)
--- NOTE | 2016-12-04 09:23 | HHI.PR ---
Subjective Remarks Patient seen in follow-up for resolving pneumonia, severe aortic stenosis, acute hypoxemic respiratory failure. Patient will have a heart catheterization this morning. He states that he is feeling better today. Breathing improved. No chest pain. Objective Vitals Vital Signs Date Time Temp Pulse Resp B/P Pulse Ox O2 Delivery O2 Flow Rate FiO2 12/04/16 09:03 95 Nasal Cannula 2.00 12/04/16 08:00 74 12/04/16 07:00 100 Nasal Cannula 4.00 12/04/16 06:00 70 12/04/16 04:00 98.8 21 21 167/87 94 12/04/16 04:00 59 12/04/16 02:00 59 12/04/16 00:00 57 12/04/16 00:00 98.1 57 31 129/61 98 12/03/16 22:00 60 12/03/16 20:03 98 Nasal Cannula 3.00 12/03/16 20:00 78 12/03/16 20:00 97.9 78 28 149/60 99 12/03/16 19:00 99 Nasal Cannula 4.00 12/03/16 18:00 80 12/03/16 16:00 79 12/03/16 16:00 98.4 79 24 167/74 97 12/03/16 14:00 75 12/03/16 12:00 98.1 66 22 168/74 99 12/03/16 12:00 70 12/03/16 10:29 95 Nasal Cannula 3.50 12/03/16 10:00 68 I/O 12/03/16 12/03/16 12/03/16 12/04/16 12/04/16 12/04/16 07:00 15:00 23:00 07:00 15:00 23:00 Intake Total 184 ml 229 ml 175 ml 86 ml Output Total 300 ml 1002 ml 500 ml 350 ml Balance -116 ml -773 ml -325 ml -264 ml Intake Oral 140 ml 160 ml 100 ml 25 ml IV Total 44 ml 69 ml 75 ml 61 ml Output Urine Total 300 ml 1000 ml 500 ml 350 ml Stool Total 0 ml 2 ml # Bowel Movements 0 0 Result Diagram: 12/03/16 0547 12/04/16 0630 Objective Remarks GENERAL: This is a well-nourished, well-developed patient, tachypneic at rest. CARDIOVASCULAR: Normal rate and regular rhythm. 2/6 SUMIT, more pronounced at the LUSB. RESPIRATORY: Tachypneic. Good respiratory efforts. Breath sounds equal and clear to auscultation bilaterally. GASTROINTESTINAL: Abdomen soft, non-tender, non-distended. Normal active bowel sounds MUSCULOSKELETAL: Extremities without cyanosis, or edema. NEURO: Alert & Oriented x4 to person, place, time, situation. Moves all ext x4 PSYCH: Appropriate mood and affect. Date of Insertion: Nov 26, 2016 Line: Central Venous Catheter Side: Right Location: Internal, Jugular A/P Problem List: (1) NSTEMI (non-ST elevated myocardial infarction) ICD Code: I21.4 Status: Acute (2) Septic shock ICD Code: A41.9 Status: Acute (3) LBBB (left bundle branch block) ICD Code: I44.7 Status: Acute (4) Respiratory failure ICD Code: J96.90 Status: Acute (5) PNA (pneumonia) ICD Code: J18.9 Status: Acute (6) CONSTANTIN (acute kidney injury) ICD Code: N17.9 Status: Acute (7) Aortic stenosis, severe ICD Code: I35.0 Status: Acute Assessment and Plan 86-year-old male with Acute hypoxemic respiratory failure likely due to combination of pneumonia and decompensated aortic stenosis History of COPD? -Currently stable, maintain oxygen saturation above 92%. BiPAP as needed. Continue with DuoNeb. Patient completed a course of antibiotics with Vancomycin , Zosyn, and Azithromycin. - Continue Ativan PRN anxiety which contributes to hyperventilation. - Continue Prednisone, went down to 20 mg daily. Elevated troponin/Severe aortic stenosis: -Appreciate cardiology follow-up. Aspirin,heparin drip, and Coreg. Plavix discontinued in case he needs CT surgery. -Heart catheterization today per cardiology. Unsure if he is a candidate for valve replacement. - Continue diuresis. He is responding well. History of sacral decubitus ulcer Decubitus prevention protocol initiated. PT evaluate and treat Prophylaxis - GI - Pepcid - DVT - SCD/heparin drip Discharge Planning OK to transfer to [facility] after heart catheterization if stable. Joy Brown MD Dec 04, 2016 09:23
[2016-12-04] MEDS ORDERED: HEPARIN-NS/PF INJ 500 ML ONE (10:08)
[2016-12-04] MEDS ORDERED: MIDAZOLAM HCL 2 MG/2 ML VIAL ONE (10:09)
[2016-12-04] MEDS ORDERED: NITROGLYCERIN INJ 5 ML ONE (10:09)
[2016-12-04] MEDS ORDERED: VERAPAMIL HCL 5 MG/2 ML VIAL ONE (10:09)
[2016-12-04] MEDS ORDERED: HEPARIN SODIUM - IV 10,000 UNITS/10 ML VIAL ONE (10:09)
[2016-12-04] MEDS ORDERED: SODIUM CHLORIDE 0.9% FLUSH 5 ML FLUSH IVF PRN (11:30)
[2016-12-04] MEDS ORDERED: IODIXANOL 320 MG/ML 100 ML VIAL (for Cath Lab) OTHER ONE (11:49)
--- NOTE | 2016-12-04 12:39 | PD.CARD.PN ---
Subjective Subjective Remarks Doing well post-cath, no chest pain, no shortness of breath Objective Medications Current Medications Medications (Trade) Dose Ordered Sig/Lopez Route Start Time Stop Time Status Last Admin (Lipitor) 80 mg HS PO 11/26/16 21:00 12/03/16 20:14 (Tylenol) 650 mg Q6H PRN PO 11/26/16 19:00 (Tears Naturale Opth Soln) 1 drop TID EACH EYE 11/27/16 09:00 12/04/16 08:05 Miscellaneous Information 1 Q361D XX 11/26/16 19:00 11/26/16 19:00 (Chlorhexidine 2% Cloth) Taper DAILY@04 TOP 11/27/16 04:00 11/23/17 03:59 12/03/16 04:00 (Chlorhexidine 2% Cloth) 3 pack UNSCH PRN TOP 11/26/16 19:00 (Peridex 0.12% Liq) 15 ml BID@08,20 MT 11/27/16 08:00 12/04/16 08:05 (D50w (Vial) Inj) 25 ml UNSCH PRN IV PUSH 11/27/16 08:15 (Glucagon Inj) 1 mg UNSCH PRN OTHER 11/27/16 08:15 (Ecotrin Ec) 81 mg DAILY PO 11/28/16 09:00 12/04/16 08:06 (Trandate Inj) 10 mg Q1HR PRN IV PUSH 11/28/16 19:00 (Apresoline Inj) 10 mg Q1HR PRN IV PUSH 11/28/16 19:00 12/03/16 19:14 (Nitroglycerin 2% Oint) 2 inch Q6HR PRN TOPICAL 11/28/16 19:00 (Coreg) 6.25 mg Q12HR PO 11/28/16 21:00 12/04/16 08:06 (Lasix Inj) 20 mg DAILY IV PUSH 12/02/16 09:00 12/04/16 08:06 (Colace) 100 mg Q12HR PRN PO 12/02/16 09:30 (Deltasone) 20 mg BID PO 12/02/16 21:00 12/04/16 08:06 (Ativan Inj) 1 mg Q4H PRN IV PUSH 12/02/16 09:30 12/04/16 03:29 (Pepcid Inj) 20 mg Q12HR IV PUSH 12/03/16 21:00 12/04/16 08:06 (Heparin Inj) 5,000 units Q8HR SQ 12/04/16 14:00 (NS Flush) 2 ml BID IVF 12/04/16 21:00 (NS Flush) 2 ml UNSCH PRN IVF 12/04/16 11:30 Vital Signs / I&O Vital Signs Date Time Temp Pulse Resp B/P Pulse Ox O2 Delivery O2 Flow Rate FiO2 12/04/16 11:25 97.7 68 134/59 97 12/04/16 11:25 Nasal Cannula 4.00 12/04/16 09:23 100 Nasal Cannula 4.00 12/04/16 09:20 97.7 68 164/75 100 12/04/16 09:03 95 Nasal Cannula 2.00 12/04/16 08:00 74 12/04/16 08:00 97.7 74 24 174/70 100 12/04/16 07:00 100 Nasal Cannula 4.00 12/04/16 06:00 70 12/04/16 04:00 98.8 21 21 167/87 94 12/04/16 04:00 59 12/04/16 02:00 59 12/04/16 00:00 57 12/04/16 00:00 98.1 57 31 129/61 98 12/03/16 22:00 60 12/03/16 20:03 98 Nasal Cannula 3.00 12/03/16 20:00 78 12/03/16 20:00 97.9 78 28 149/60 99 12/03/16 19:00 99 Nasal Cannula 4.00 12/03/16 18:00 80 12/03/16 16:00 79 12/03/16 16:00 98.4 79 24 167/74 97 12/03/16 14:00 75 I/O 12/03/16 12/03/16 12/03/16 12/04/16 12/04/16 12/04/16 07:00 15:00 23:00 07:00 15:00 23:00 Intake Total 184 ml 229 ml 175 ml 86 ml Output Total 300 ml 1002 ml 500 ml 350 ml Balance -116 ml -773 ml -325 ml -264 ml Intake Oral 140 ml 160 ml 100 ml 25 ml IV Total 44 ml 69 ml 75 ml 61 ml Output Urine Total 300 ml 1000 ml 500 ml 350 ml Stool Total 0 ml 2 ml # Bowel Movements 0 0 Physical Exam GENERAL: NAD, comfortable SKIN: Warm and dry. HEAD: Atraumatic. Normocephalic. EYES: Pupils equal and round. No scleral icterus. No injection or drainage. ENT: No nasal bleeding or discharge. Mucous membranes pink and moist. NECK: Trachea midline. No JVD. CARDIOVASCULAR: Regular rate and rhythm. 2/6 mid to late peaking crescendo- decrescendo murmur to the RSB RESPIRATORY: Decreased breath sounds bilaterally GASTROINTESTINAL: Abdomen soft, non-tender, nondistended. Hepatic and splenic margins not palpable. MUSCULOSKELETAL: Extremities without clubbing, cyanosis, or edema. No obvious deformities. NEUROLOGICAL: Awake and alert. No obvious cranial nerve deficits. Motor grossly within normal limits. Five out of 5 muscle strength in the arms and legs. Normal speech. PSYCHIATRIC: Appropriate mood and affect; insight and judgment normal. Laboratory Laboratory Tests Test 12/03/16 12/03/16 12/04/16 17:30 23:34 06:30 Activated Partial 45.5 SEC 63.7 SEC 73.7 SEC Thromboplast Time Sodium Level 143 MEQ/L Potassium Level 3.7 MEQ/L Chloride Level 104 MEQ/L Carbon Dioxide Level 32.4 MEQ/L Anion Gap 7 MEQ/L Blood Urea Nitrogen 25 MG/DL Creatinine 0.84 MG/DL Estimat Glomerular Filtration 86 ML/MIN Rate Random Glucose 118 MG/DL Calcium Level 8.8 MG/DL Assessment and Plan Problem List: (1) Septic shock (2) PNA (pneumonia) (3) NSTEMI (non-ST elevated myocardial infarction) (4) Respiratory failure (5) LBBB (left bundle branch block) (6) CONSTANTIN (acute kidney injury) (7) Aortic stenosis, severe (8) Aortic regurgitation Assessment and Plan 1) Sepsis from bilaterally PNA 2) ASA/Coreg/Lipitor... will stop Plavix in case he needs CT surgery... Heparin drip stopped 3) Severe with severe AR most likely part of his decompensation on admission 4) Mod-severe CAD with LAD/Diag/OM lesions 5) Discussed with CT surgery about possible AVR + CABG, will start work up and discuss with the patient Cole Hassan DO Dec 04, 2016 12:39
[2016-12-04] MEDS: HEPARIN SODIUM - SQ 10,000 UNITS/ML VIAL SQ SCH ×2 (14:50→21:58)
--- NOTE | 2016-12-04 15:34 | MA ---
cc: COLE DOS SANTOS DO DATE: 12/04/2016 PROCEDURE Coronary angiogram. PREPROCEDURE DIAGNOSIS Eix-KH-mefneskoe myocardial infarction, severe , severe AR, cardiomyopathy. POSTPROCEDURE DIAGNOSIS Moderate severe coronary artery disease, severe , severe AR. MEDICATIONS GIVEN 1. Versed 0.5 mg. 2. Fentanyl 25 mcg. 3. Verapamil 2.5 mg. 4. Nitro 200 mcg. 5. Heparin 3300 units. CONTRAST USED 80 cc. FLUOROSCOPY TIME 4.7 minutes. ESTIMATED BLOOD LOSS 10 cc. PROCEDURAL SUMMARY Wilian Sahni is a pleasant 86-year-old male who originally came in with septic shock. At that time he had a significant hlp-[id number]-[id number] myocardial infarction. Echocardiogram showed severe aortic stenosis and regurgitation with a cardiomyopathy and ejection fraction of 40-45%. After getting over his sepsis it was felt that he should undergo coronary angiogram not only for his gbv-KW-fivtgbkuz myocardial infarction but also consideration of possible surgery for his aortic stenosis and aortic regurgitation. Risks, benefits and alternatives were explained to the patient and he consented as such. He was brought to the lab and prepped in the usual sterile fashion. The right radial artery was accessed using a modified Seldinger technique and placement of a 5/6 Slender sheath. This was easily aspirated and flushed. He was given a radial cocktail of Verapamil 2.5 mg, nitroglycerin 200 mcg and heparin 3300 units. A JR4 was then advanced over a J-wire to the ascending aortic root. This was used for selective angiography of the right coronary artery which shows a dominant vessel with diffuse 10-20% throughout but no significant disease. The JR4 was then exchanged for a JL4. This was used for selective angiography of the left coronary system. The left main appears to be a normal vessel with 10-20% proximally but has good dye flex and no pressure dampening on insertion of catheter. The left main gives off an LAD and circumflex. The LAD proximally appears to have a 50% long tubular lesion. The midsection of the LAD has a more significant lesion of probably 70%, long tubular in nature. The LAD gives off one major diagonal which has multiple smaller diagonals off of it and seems to have an ostial/proximal lesion of 80%. The left circumflex is a nondominant vessel which gives off one significant obtuse marginal. The circumflex has 10-20% throughout. The obtuse marginal after its bifurcation from the left circumflex appears to have a 70% mid lesion. The JL4 was then removed over a J-wire. A radial band was placed across the radial sheath and air was inserted while removing the radial sheath. The band had 8 cc of air for hemostasis. The patient left the cardiac catheterization lab stable. IMPRESSIONS 1. Enx-UC-xywtvwtnd myocardial infarction. 2. Multivessel coronary artery disease as above. 3. Severe aortic stenosis, severe aortic regurgitation by echocardiogram. RECOMMENDATIONS 1. CT surgery evaluation plus possible coronary artery bypass grafting. 2. Heparin drip can be stopped at this time. 3. Further recommendations based on hospital course. Thank you for allowing me to see Wilian Sahni. If there are any questions, please do not hesitate to call. Cole Dos Santos DO VGP/BT /11:19 AM /3:22 PM
--- NOTE | 2016-12-04 16:32 | PD.CAR.PN ---
CVT Progress Note Subjective/Hospital Course: consultation dictated sts data discussed with RISK SCORES About the STS Risk Calculator Procedure: AV Replacement + CAB Risk of Mortality: 7.125% Morbidity or Mortality: 34.556% Long Length of Stay: 19.904% Short Length of Stay: 11.758% Permanent Stroke: 2.772% Prolonged Ventilation: 24.181% DSW Infection: 0.733% Renal Failure: 9.509% Reoperation: 14.844% Objective: Vital Signs Date Time Temp Pulse Resp B/P Pulse Ox O2 Delivery O2 Flow Rate FiO2 12/04/16 11:25 97.7 68 134/59 97 12/04/16 11:25 Nasal Cannula 4.00 12/04/16 09:23 100 Nasal Cannula 4.00 12/04/16 09:20 97.7 68 164/75 100 12/04/16 09:03 95 Nasal Cannula 2.00 12/04/16 08:00 74 12/04/16 08:00 97.7 74 24 174/70 100 12/04/16 07:00 100 Nasal Cannula 4.00 12/04/16 06:00 70 12/04/16 04:00 98.8 21 21 167/87 94 12/04/16 04:00 59 12/04/16 02:00 59 12/04/16 00:00 57 12/04/16 00:00 98.1 57 31 129/61 98 12/03/16 22:00 60 12/03/16 20:03 98 Nasal Cannula 3.00 12/03/16 20:00 78 12/03/16 20:00 97.9 78 28 149/60 99 12/03/16 19:00 99 Nasal Cannula 4.00 12/03/16 18:00 80 Labs: Laboratory Tests Test 12/04/16 06:30 Activated Partial 73.7 SEC Thromboplast Time (24.3-30.1) Sodium Level 143 MEQ/L (136-145) Potassium Level 3.7 MEQ/L (3.5-5.1) Chloride Level 104 MEQ/L (98-107) Carbon Dioxide Level 32.4 MEQ/L (21.0-32.0) Anion Gap 7 MEQ/L (5-15) Blood Urea Nitrogen 25 MG/DL (7-18) Creatinine 0.84 MG/DL (0.60-1.30) Estimat Glomerular Filtration 86 ML/MIN (>89) Rate Random Glucose 118 MG/DL (74-106) Calcium Level 8.8 MG/DL (8.5-10.1) Result Diagram: 12/03/1647 12/04/16629 (1) Septic shock (2) PNA (pneumonia) (3) NSTEMI (non-ST elevated myocardial infarction) (4) Respiratory failure (5) LBBB (left bundle branch block) (6) CONSTANTIN (acute kidney injury) (7) Aortic stenosis, severe (8) Aortic regurgitation Blanquita Baltazar Dec 04, 2016 16:32
[2016-12-04] MEDS: ATORVASTATIN 80 MG TAB PO SCH (21:56)
[2016-12-04] MEDS: SODIUM CHLORIDE 0.9% FLUSH 5 ML FLUSH IVF SCH (21:57)
[2016-12-05] VITALS (22 sets, daily range): BP systolic 71–168; BP diastolic 50–77; PULSE 57–82; RESP 16–20; TEMP 97.2–98.6; O2SAT 93–100
[2016-12-05] MEDS: CHLORHEXIDINE GLUCONATE 2 % 1 PACK (2 CLOTHS) TOP SCH (04:00)
[2016-12-05] MEDS: HEPARIN SODIUM - SQ 10,000 UNITS/ML VIAL SQ SCH ×3 (06:01→20:42)
[2016-12-05] MEDS: INSULIN NovoLIN REGULAR SUPPLEMENTAL SCALE SQ SCH ×4 (06:04→21:00)
[2016-12-05 07:49] LABS: AUTOMATED NEUTROPHIL # 9.4 TH/MM3 (1.8-7.7); BASOPHIL % 0.4 % (0.0-2.0); EOSINOPHIL # 0.2 TH/MM3 (0-0.4); EOSINOPHIL % 1.3 % (0.0-4.0); HEMATOCRIT 38.9 % (39.0-51.0); HEMO FLAGS DIFF FINAL; LYMPH % 8.4 % (9.0-44.0); MEAN CELL VOLUME 96.5 FL (80.0-100.0); MEAN CORPUSCULAR HEMOGLOBIN 33.4 PG (27.0-34.0); MEAN CORPUSCULAR HGB CONC 34.6 % (32.0-36.0); MONO % 11.3 % (0.0-8.0); NEUT % 78.6 % (16.0-70.0); PLATELET COUNT 185 TH/MM3 (150-450); RED BLOOD COUNT 4.03 MIL/MM3 (4.50-5.90); RED CELL DISTRIBUTION WIDTH 13.6 % (11.6-17.2)
[2016-12-05] MEDS: CHLORHEXIDINE 0.12% (ORAL KIT) 15 ML CUP MT SCH ×2 (08:00→20:00)
[2016-12-05 08:12] LABS: BICARBONATE 31.5 MEQ/L (21.0-32.0); POTASSIUM 3.5 MEQ/L (3.5-5.1)
[2016-12-05] MEDS: predniSONE 10 MG TAB PO SCH (09:10)
[2016-12-05] MEDS: PANTOPRAZOLE SOD 40 MG DELAYED RELEASE TAB PO SCH (09:11)
[2016-12-05] MEDS: ASPIRIN EC 81 MG TABEC PO SCH (09:11)
[2016-12-05] MEDS: CARVEDILOL 6.25 MG TAB PO SCH ×2 (09:11→20:42)
[2016-12-05] MEDS: ARTIFICIAL TEARS OPTH SOLN 15 ML BTL EACH EYE SCH ×3 (09:12→18:00)
[2016-12-05] MEDS: FUROSEMIDE 20 MG/2 ML VIAL IV PUSH SCH (09:12)
[2016-12-05] MEDS: SODIUM CHLORIDE 0.9% FLUSH 5 ML FLUSH IVF SCH ×2 (09:23→20:43)
--- NOTE | 2016-12-05 09:53 | HHI.PR ---
Subjective Remarks Patient reports that he is feeling better from a respiratory standpoint. Currently on room air. No chest pain. Objective Vitals Vital Signs Date Time Temp Pulse Resp B/P Pulse Ox O2 Delivery O2 Flow Rate FiO2 12/05/16 06:00 58 12/05/16 05:00 62 12/05/16 04:00 98.6 57 18 124/50 97 12/05/16 04:00 57 12/05/16 04:00 Nasal Cannula 2.00 12/05/16 03:00 60 12/05/16 02:00 63 12/05/16 01:00 66 12/05/16 00:00 66 12/05/16 00:00 98.1 66 18 137/63 96 12/05/16 00:00 Nasal Cannula 2.00 12/04/16 23:00 71 12/04/16 22:00 70 12/04/16 21:00 78 12/04/16 20:00 Nasal Cannula 2.00 12/04/16 20:00 97.9 72 20 152/76 98 12/04/16 20:00 82 12/04/16 17:44 95 21 12/04/16 16:46 97.8 69 142/59 95 12/04/16 16:46 Room Air 12/04/16 16:00 70 12/04/16 11:25 97.7 68 134/59 97 12/04/16 11:25 Nasal Cannula 4.00 12/04/16 10:30 75 I/O 12/04/16 12/04/16 12/04/16 12/05/16 12/05/16 12/05/16 07:00 15:00 23:00 07:00 15:00 23:00 Intake Total 86 ml 250 ml 482 ml Output Total 350 ml 850 ml 650 ml Balance -264 ml -600 ml -168 ml Intake Oral 25 ml 250 ml 480 ml IV Total 61 ml 2 ml Output Urine Total 350 ml 650 ml Stool Total 850 ml # Bowel Movements 0 0 0 Result Diagram: 12/05/1672412/05/16724 Objective Remarks GENERAL: This is a well-nourished, well-developed patient in no acute distress. CARDIOVASCULAR: Normal rate and regular rhythm. 2/6 SUMIT, more pronounced at the LUSB. RESPIRATORY: Tachypneic. Good respiratory efforts. Breath sounds equal and clear to auscultation bilaterally. GASTROINTESTINAL: Abdomen soft, non-tender, non-distended. Normal active bowel sounds MUSCULOSKELETAL: Extremities without cyanosis, or edema. NEURO: Alert & Oriented x4 to person, place, time, situation. Moves all ext x4 PSYCH: Appropriate mood and affect. Date of Insertion: Nov 26, 2016 Line: Central Venous Catheter Side: Right Location: Internal, Jugular A/P Problem List: (1) NSTEMI (non-ST elevated myocardial infarction) ICD Code: I21.4 Status: Acute (2) Septic shock ICD Code: A41.9 Status: Acute (3) LBBB (left bundle branch block) ICD Code: I44.7 Status: Acute (4) Respiratory failure ICD Code: J96.90 Status: Acute (5) PNA (pneumonia) ICD Code: J18.9 Status: Acute (6) CONSTANTIN (acute kidney injury) ICD Code: N17.9 Status: Acute (7) Aortic stenosis, severe ICD Code: I35.0 Status: Acute Assessment and Plan 86-year-old male with Acute hypoxemic respiratory failure likely due to combination of pneumonia and decompensated aortic stenosis History of COPD? -Currently stable, maintain oxygen saturation above 92%. BiPAP as needed. Continue with DuoNeb. Patient completed a course of antibiotics with Vancomycin , Zosyn, and Azithromycin. - Continue Ativan PRN anxiety which contributes to hyperventilation. - Continue Prednisone, tapering, down to 10 mg daily. Elevated troponin/Severe aortic stenosis: -Appreciate cardiology follow-up. Aspirin and Coreg. Heparin and Plavix discontinued for CT surgery. - Patient is status post heart catheterization which revealed multivessel disease. CT surgery has been consulted for CABG and possible valve replacement. - Continue diuresis. History of sacral decubitus ulcer Decubitus prevention protocol initiated. PT evaluate and treat Prophylaxis - GI - Pepcid - DVT - SCD Joy Brown MD Dec 05, 2016 09:53
--- NOTE | 2016-12-05 10:03 | PD.CARD.PN ---
Subjective Subjective Remarks No ovenight events Mild SOB this AM Objective Medications Current Medications Medications (Trade) Dose Ordered Sig/Lopez Route Start Time Stop Time Status Last Admin (Lipitor) 80 mg HS PO 11/26/16 21:00 12/04/16 21:56 (Tylenol) 650 mg Q6H PRN PO 11/26/16 19:00 12/04/16 16:45 (Tears Naturale Opth Soln) 1 drop TID EACH EYE 11/27/16 09:00 12/05/16 09:12 Miscellaneous Information 1 Q361D XX 11/26/16 19:00 11/26/16 19:00 (Chlorhexidine 2% Cloth) Taper DAILY@04 TOP 11/27/16 04:00 11/23/17 03:59 12/03/16 04:00 (Chlorhexidine 2% Cloth) 3 pack UNSCH PRN TOP 11/26/16 19:00 (Peridex 0.12% Liq) 15 ml BID@08,20 MT 11/27/16 08:00 12/04/16 20:00 (D50w (Vial) Inj) 25 ml UNSCH PRN IV PUSH 11/27/16 08:15 (Glucagon Inj) 1 mg UNSCH PRN OTHER 11/27/16 08:15 (Ecotrin Ec) 81 mg DAILY PO 11/28/16 09:00 12/05/16 09:11 (Trandate Inj) 10 mg Q1HR PRN IV PUSH 11/28/16 19:00 (Apresoline Inj) 10 mg Q1HR PRN IV PUSH 11/28/16 19:00 12/03/16 19:14 (Nitroglycerin 2% Oint) 2 inch Q6HR PRN TOPICAL 11/28/16 19:00 (Coreg) 6.25 mg Q12HR PO 11/28/16 21:00 12/05/16 09:11 (Lasix Inj) 20 mg DAILY IV PUSH 12/02/16 09:00 12/05/16 09:12 (Colace) 100 mg Q12HR PRN PO 12/02/16 09:30 (Ativan Inj) 1 mg Q4H PRN IV PUSH 12/02/16 09:30 12/04/16 03:29 (Heparin Inj) 5,000 units Q8HR SQ 12/04/16 14:00 12/05/16 06:01 (NS Flush) 2 ml BID IVF 12/04/16 21:00 12/05/16 09:23 (NS Flush) 2 ml UNSCH PRN IVF 12/04/16 11:30 (Protonix) 40 mg DAILY PO 12/05/16 09:00 12/05/16 09:11 (Deltasone) 10 mg DAILY PO 12/05/16 09:00 12/06/16 09:01 12/05/16 09:10 Vital Signs / I&O Vital Signs Date Time Temp Pulse Resp B/P Pulse Ox O2 Delivery O2 Flow Rate FiO2 12/05/16 06:00 58 12/05/16 05:00 62 12/05/16 04:00 98.6 57 18 124/50 97 12/05/16 04:00 57 12/05/16 04:00 Nasal Cannula 2.00 12/05/16 03:00 60 12/05/16 02:00 63 12/05/16 01:00 66 12/05/16 00:00 66 12/05/16 00:00 98.1 66 18 137/63 96 12/05/16 00:00 Nasal Cannula 2.00 12/04/16 23:00 71 12/04/16 22:00 70 12/04/16 21:00 78 12/04/16 20:00 Nasal Cannula 2.00 12/04/16 20:00 97.9 72 20 152/76 98 12/04/16 20:00 82 12/04/16 17:44 95 21 12/04/16 16:46 97.8 69 142/59 95 12/04/16 16:46 Room Air 12/04/16 16:00 70 12/04/16 11:25 97.7 68 134/59 97 12/04/16 11:25 Nasal Cannula 4.00 12/04/16 10:30 75 I/O 12/04/16 12/04/16 12/04/16 12/05/16 12/05/16 12/05/16 07:00 15:00 23:00 07:00 15:00 23:00 Intake Total 86 ml 250 ml 482 ml Output Total 350 ml 850 ml 650 ml Balance -264 ml -600 ml -168 ml Intake Oral 25 ml 250 ml 480 ml IV Total 61 ml 2 ml Output Urine Total 350 ml 650 ml Stool Total 850 ml # Bowel Movements 0 0 0 Physical Exam GENERAL: Well-nourished, well-developed patient. SKIN: Warm and dry. HEAD: Normocephalic. EYES: No scleral icterus. No injection or drainage. NECK: Supple, trachea midline. No JVD or lymphadenopathy. CARDIOVASCULAR: Regular rate and rhythm RESPIRATORY: Breath sounds equal bilaterally. No accessory muscle use. GASTROINTESTINAL: Abdomen soft, non-tender, nondistended. EXTREMITIES: No cyanosis, or edema. NEUROLOGICAL: Awake, alert, and oriented x 3. Non-focal. Laboratory Laboratory Tests Test 12/05/16 07:25 White Blood Count 12.0 TH/MM3 Red Blood Count 4.03 MIL/MM3 Hemoglobin 13.5 GM/DL Hematocrit 38.9 % Mean Corpuscular Volume 96.5 FL Mean Corpuscular Hemoglobin 33.4 PG Mean Corpuscular Hemoglobin 34.6 % Concent Red Cell Distribution Width 13.6 % Platelet Count 185 TH/MM3 Mean Platelet Volume 8.7 FL Neutrophils (%) (Auto) 78.6 % Lymphocytes (%) (Auto) 8.4 % Monocytes (%) (Auto) 11.3 % Eosinophils (%) (Auto) 1.3 % Basophils (%) (Auto) 0.4 % Neutrophils # (Auto) 9.4 TH/MM3 Lymphocytes # (Auto) 1.0 TH/MM3 Monocytes # (Auto) 1.4 TH/MM3 Eosinophils # (Auto) 0.2 TH/MM3 Basophils # (Auto) 0.0 TH/MM3 CBC Comment DIFF FINAL Differential Comment Sodium Level 144 MEQ/L Potassium Level 3.5 MEQ/L Chloride Level 105 MEQ/L Carbon Dioxide Level 31.5 MEQ/L Anion Gap 8 MEQ/L Blood Urea Nitrogen 27 MG/DL Creatinine 0.92 MG/DL Estimat Glomerular Filtration 78 ML/MIN Rate Random Glucose 88 MG/DL Calcium Level 8.8 MG/DL Assessment and Plan Problem List: (1) NSTEMI (non-ST elevated myocardial infarction) Assessment and Plan: Cont aggressive medical management Pending CABG and AVR (2) Aortic stenosis, severe (3) Aortic regurgitation (4) Septic shock (5) PNA (pneumonia) (6) Respiratory failure (7) LBBB (left bundle branch block) (8) CONSTANTIN (acute kidney injury) Anthony Barnett MD Dec 05, 2016 10:03
[2016-12-05] MEDS ORDERED: EPINEPHrine HCL (1:10,000) 1 MG/10 ML SYRINGE ONE (10:45)
[2016-12-05] MEDS ORDERED: ATROPINE SULFATE 1 MG/10 ML SYRINGE ONE (10:46)
--- NOTE | 2016-12-05 11:32 | RADRPT ---
EXAM DATE/TIME: 12/05/2016 11:08 [facility] COMPARISON: CHEST SINGLE AP, November 29, 2016, 4:05. INDICATIONS : Pre operative for CABG. RADIATION DOSE: 9.59 CTDIvol (mGy) MEDICAL HISTORY : Chronic obstructive pulmonary disease. SURGICAL HISTORY : Cardiac catheterization. ENCOUNTER: Initial ACUITY: 1 day PAIN SCALE: 0/10 LOCATION: Bilateral chest TECHNIQUE: Volumetric scanning of the chest was performed. Using automated exposure control and adjustment of t he mA and/or kV according to patient size, radiation dose was kept as low as reasonably achievable to obtain optimal diagnostic quality images. FINDINGS: LUNGS: There is a 5 mm pulmonary nodule in the left lung base. There is some mild atelectasis in the lung ba ses. The upper lung moreno appear to be clear and well-aerated. PLEURAE: Small bilateral effusions. MEDIASTINUM: The heart and great vessels demonstrate no acute abnormality. There is no mediastinal or hilar lymph adenopathy. Atherosclerotic changes are seen in the aorta. Coronary calcifications. AXILLAE: Within normal limits. No lymphadenopathy. MUSCULOSKELETAL: Within normal limits for patient age. MISCELLANEOUS: The visualized upper abdominal organs demonstrate no acute abnormality. CONCLUSION: 1. Small bilateral pleural effusions. 2. Bibasilar atelectasis. 3. 5 mm pulmonary nodule left lung base. This is nonspecific. Recommend followup noncontrast CT thora x in 6 months to check stability. Hudson Lamar MD on December 05, 2016 at 11:28 Board Certified Radiologist. This report was verified electronically.
--- NOTE | 2016-12-05 12:42 | PD.CAR.PN ---
CVT Progress Note Subjective/Hospital Course: consultation dictated sts data discussed with RISK SCORES About the STS Risk Calculator Procedure: AV Replacement + CAB Risk of Mortality: 7.125% Morbidity or Mortality: 34.556% Long Length of Stay: 19.904% Short Length of Stay: 11.758% Permanent Stroke: 2.772% Prolonged Ventilation: 24.181% DSW Infection: 0.733% Renal Failure: 9.509% Reoperation: 14.844% 12/05/16 Patient seen and evaluated. He has no complaints currently. He has not been out of bed or ambulated much since admission. Objective: Vital Signs Date Time Temp Pulse Resp B/P Pulse Ox O2 Delivery O2 Flow Rate FiO2 12/05/16 12:16 97.5 65 20 125/62 98 12/05/16 12:16 65 12/05/16 10:00 81 12/05/16 08:00 70 12/05/16 08:00 97.2 70 20 168/77 100 12/05/16 07:00 98 Room Air 12/05/16 06:00 58 12/05/16 05:00 62 12/05/16 04:00 98.6 57 18 124/50 97 12/05/16 04:00 57 12/05/16 04:00 Nasal Cannula 2.00 12/05/16 03:00 60 12/05/16 02:00 63 12/05/16 01:00 66 12/05/16 00:00 66 12/05/16 00:00 98.1 66 18 137/63 96 12/05/16 00:00 Nasal Cannula 2.00 12/04/16 23:00 71 12/04/16 22:00 70 12/04/16 21:00 78 12/04/16 20:00 Nasal Cannula 2.00 12/04/16 20:00 97.9 72 20 152/76 98 12/04/16 20:00 82 12/04/16 17:44 95 21 12/04/16 16:46 97.8 69 142/59 95 12/04/16 16:46 Room Air 12/04/16 16:00 70 Labs: Laboratory Tests Test 12/05/16 07:25 White Blood Count 12.0 TH/MM3 (4.0-11.0) Red Blood Count 4.03 MIL/MM3 (4.50-5.90) Hemoglobin 13.5 GM/DL (13.0-17.0) Hematocrit 38.9 % (39.0-51.0) Mean Corpuscular Volume 96.5 FL (80.0-100.0) Mean Corpuscular Hemoglobin 33.4 PG (27.0-34.0) Mean Corpuscular Hemoglobin 34.6 % Concent (32.0-36.0) Red Cell Distribution Width 13.6 % (11.6-17.2) Platelet Count 185 TH/MM3 (150-450) Mean Platelet Volume 8.7 FL (7.0-11.0) Neutrophils (%) (Auto) 78.6 % (16.0-70.0) Lymphocytes (%) (Auto) 8.4 % (9.0-44.0) Monocytes (%) (Auto) 11.3 % (0.0-8.0) Eosinophils (%) (Auto) 1.3 % (0.0-4.0) Basophils (%) (Auto) 0.4 % (0.0-2.0) Neutrophils # (Auto) 9.4 TH/MM3 (1.8-7.7) Lymphocytes # (Auto) 1.0 TH/MM3 (1.0-4.8) Monocytes # (Auto) 1.4 TH/MM3 (0-0.9) Eosinophils # (Auto) 0.2 TH/MM3 (0-0.4) Basophils # (Auto) 0.0 TH/MM3 (0-0.2) CBC Comment DIFF FINAL Differential Comment Sodium Level 144 MEQ/L (136-145) Potassium Level 3.5 MEQ/L (3.5-5.1) Chloride Level 105 MEQ/L (98-107) Carbon Dioxide Level 31.5 MEQ/L (21.0-32.0) Anion Gap 8 MEQ/L (5-15) Blood Urea Nitrogen 27 MG/DL (7-18) Creatinine 0.92 MG/DL (0.60-1.30) Estimat Glomerular Filtration 78 ML/MIN (>89) Rate Random Glucose 88 MG/DL (74-106) Calcium Level 8.8 MG/DL (8.5-10.1) Result Diagram: 12/05/16 0725 12/05/16 0725 Imaging: Last Impressions Chest CT 12/05/16 0000 Signed Impressions: Service Date/Time: Monday, December 05, 2016 11:08 - CONCLUSION: 1. Small bilateral pleural effusions. 2. Bibasilar atelectasis. 3. 5 mm pulmonary nodule left lung base. This is nonspecific. Recommend followup noncontrast CT thorax in 6 months to check stability. Hudson Lamar MD Chest X-Ray 11/29/16 0600 Signed Impressions: Service Date/Time: Tuesday, November 29, 2016 04:05 - CONCLUSION: Improving aeration in the left lower lung with some mild patchy residual non- consolidative infiltrates. Billy Ortiz MD Renal Ultrasound 11/27/16 0000 Signed Impressions: Service Date/Time: Sunday, November 27, 2016 10:02 - CONCLUSION: 1. Unremarkable ultrasound examination of the kidneys. Amarjit Lua MD Lower Extremity Ultrasound 11/27/16 0000 Signed Impressions: Service Date/Time: Sunday, November 27, 2016 09:38 - CONCLUSION: Negative for deep venous thrombosis. Jeff Pringle MD FACR Cardiovascular: RRR, 2/6 SUMIT Telemetry: NSR Pulmonary: Decreased Bs bilat GI/: NABS, NT Plan: 86 y/o male presents with respiratory failure requiring intubation. He was found to have severe and CAD. He also has COPD and is a prior smoker. He is currenlty stable on the floor, but deconditioned. Will order PFTs, physical therapy, and d/c bunn catheter. He would benefit from AVR/CABG, but is not in optimal condition for this surgery. TAVR +/- PCI may be an alternative. Will follow. (1) NSTEMI (non-ST elevated myocardial infarction) Plan: Cont aggressive medical management Pending CABG and AVR (2) Aortic stenosis, severe (3) Aortic regurgitation (4) Septic shock (5) PNA (pneumonia) (6) Respiratory failure (7) LBBB (left bundle branch block) (8) CONSTANTIN (acute kidney injury) Britt Haji MD Dec 05, 2016 12:42
[2016-12-05] MEDS: ATORVASTATIN 80 MG TAB PO SCH (20:42)
[2016-12-06] VITALS (9 sets, daily range): BP systolic 122–159; BP diastolic 54–70; PULSE 58–72; RESP 17–18; TEMP 97.8–98.5; O2SAT 93–95
[2016-12-06] MEDS: CHLORHEXIDINE GLUCONATE 2 % 1 PACK (2 CLOTHS) TOP SCH (04:00)
[2016-12-06] MEDS: INSULIN NovoLIN REGULAR SUPPLEMENTAL SCALE SQ SCH ×4 (06:19→21:00)
[2016-12-06] MEDS: HEPARIN SODIUM - SQ 10,000 UNITS/ML VIAL SQ SCH ×3 (06:19→22:27)
[2016-12-06] MEDS ORDERED: BISACODYL EC 5 MG TABEC ONE (07:42)
[2016-12-06] MEDS: CHLORHEXIDINE 0.12% (ORAL KIT) 15 ML CUP MT SCH ×2 (07:46→20:00)
[2016-12-06] MEDS: SODIUM CHLORIDE 0.9% FLUSH 5 ML FLUSH IVF SCH ×2 (08:41→19:38)
[2016-12-06] MEDS: CARVEDILOL 6.25 MG TAB PO SCH ×2 (08:42→19:37)
[2016-12-06] MEDS: PANTOPRAZOLE SOD 40 MG DELAYED RELEASE TAB PO SCH (08:42)
[2016-12-06] MEDS: predniSONE 10 MG TAB PO SCH (08:42)
[2016-12-06] MEDS: FUROSEMIDE 20 MG/2 ML VIAL IV PUSH SCH (08:42)
[2016-12-06] MEDS: ASPIRIN EC 81 MG TABEC PO SCH (08:42)
[2016-12-06] MEDS: ARTIFICIAL TEARS OPTH SOLN 15 ML BTL EACH EYE SCH ×3 (08:42→17:33)
--- NOTE | 2016-12-06 09:05 | HHI.PR ---
Subjective Remarks Patient reports that he is feeling well overall. Anxious about the next step. No chest pain or increased shortness of breath. Objective Vitals Vital Signs Date Time Temp Pulse Resp B/P Pulse Ox O2 Delivery O2 Flow Rate FiO2 12/06/16 07:37 98.5 61 18 159/65 93 12/06/16 07:37 62 12/06/16 07:36 93 Room Air 12/06/16 07:26 94 21 12/06/16 03:00 97.8 61 18 141/70 93 12/06/16 03:00 93 Room Air 12/06/16 03:00 58 12/05/16 23:00 68 12/05/16 23:00 93 Room Air 12/05/16 23:00 98.1 67 18 123/58 93 12/05/16 21:30 21 12/05/16 19:00 71 12/05/16 19:00 94 Room Air 12/05/16 19:00 71 12/05/16 19:00 98.3 69 18 152/67 94 12/05/16 18:00 65 12/05/16 17:00 77 12/05/16 16:08 66 12/05/16 16:08 97.9 73 16 71/ 97 12/05/16 15:00 78 12/05/16 14:12 68 12/05/16 14:03 95 12/05/16 13:00 79 12/05/16 12:16 97.5 65 20 125/62 98 12/05/16 12:16 65 12/05/16 11:00 65 12/05/16 10:00 81 I/O 12/05/16 12/05/16 12/05/16 12/06/16 12/06/16 12/06/16 07:00 15:00 23:00 07:00 15:00 23:00 Intake Total 482 ml 480 ml 240 ml Output Total 650 ml 1200 ml 450 ml Balance -168 ml -720 ml -210 ml Intake Oral 480 ml 480 ml 240 ml IV Total 2 ml Output Urine Total 650 ml 1200 ml 450 ml # Bowel Movements 0 1 0 Result Diagram: 12/05/1672412/05/16724 Objective Remarks GENERAL: This is a well-nourished, well-developed patient in no acute distress. CARDIOVASCULAR: Normal rate and regular rhythm. 2/6 SUMIT, more pronounced at the LUSB. RESPIRATORY: Good respiratory efforts. Breath sounds equal and clear to auscultation bilaterally. GASTROINTESTINAL: Abdomen soft, non-tender, non-distended. Normal active bowel sounds MUSCULOSKELETAL: Extremities without cyanosis, or edema. NEURO: Alert & Oriented x4 to person, place, time, situation. Moves all ext x4 PSYCH: Appropriate mood and affect. Date of Insertion: Nov 26, 2016 Line: Central Venous Catheter Side: Right Location: Internal, Jugular A/P Problem List: (1) NSTEMI (non-ST elevated myocardial infarction) ICD Code: I21.4 Status: Acute (2) Septic shock ICD Code: A41.9 Status: Acute (3) LBBB (left bundle branch block) ICD Code: I44.7 Status: Acute (4) Respiratory failure ICD Code: J96.90 Status: Acute (5) PNA (pneumonia) ICD Code: J18.9 Status: Acute (6) CONSTANTIN (acute kidney injury) ICD Code: N17.9 Status: Acute (7) Aortic stenosis, severe ICD Code: I35.0 Status: Acute Assessment and Plan 86-year-old male with Acute hypoxemic respiratory failure likely due to combination of pneumonia and decompensated aortic stenosis History of COPD?>>>Improved -Currently stable, maintain oxygen saturation above 92%. BiPAP as needed. Continue with DuoNeb. Patient completed a course of antibiotics with Vancomycin , Zosyn, and Azithromycin. - Continue Ativan PRN anxiety which contributes to hyperventilation. - Continue Prednisone, tapering, down to 10 mg daily. CAD/Severe aortic stenosis: -Appreciate cardiology follow-up. Aspirin and Coreg. Heparin and Plavix discontinued for CT surgery. - Patient is status post heart catheterization which revealed multivessel disease. CT surgery has been consulted for CABG and possible valve replacement. However patient is a high risk. CT surgery considering transfer to [facility]. - Continue diuresis. History of sacral decubitus ulcer Decubitus prevention protocol initiated. PT evaluate and treat Prophylaxis - GI - Pepcid - DVT - SCD Joy Brown MD Dec 06, 2016 09:05
--- NOTE | 2016-12-06 11:47 | PD.CAR.PN ---
CVT Progress Note Subjective/Hospital Course: consultation dictated sts data discussed with RISK SCORES About the STS Risk Calculator Procedure: AV Replacement + CAB Risk of Mortality: 7.125% Morbidity or Mortality: 34.556% Long Length of Stay: 19.904% Short Length of Stay: 11.758% Permanent Stroke: 2.772% Prolonged Ventilation: 24.181% DSW Infection: 0.733% Renal Failure: 9.509% Reoperation: 14.844% 12/05/16 Patient seen and evaluated. He has no complaints currently. He has not been out of bed or ambulated much since admission. 12/06/16 no significant changes overnight Objective: Vital Signs Date Time Temp Pulse Resp B/P Pulse Ox O2 Delivery O2 Flow Rate FiO2 12/06/16 11:23 98.0 62 18 122/54 94 12/06/16 11:22 62 12/06/16 11:22 94 Room Air 12/06/16 07:37 98.5 61 18 159/65 93 12/06/16 07:37 62 12/06/16 07:36 93 Room Air 12/06/16 07:26 94 21 12/06/16 03:00 97.8 61 18 141/70 93 12/06/16 03:00 93 Room Air 12/06/16 03:00 58 12/05/16 23:00 68 12/05/16 23:00 93 Room Air 12/05/16 23:00 98.1 67 18 123/58 93 12/05/16 21:30 21 12/05/16 19:00 71 12/05/16 19:00 94 Room Air 12/05/16 19:00 71 12/05/16 19:00 98.3 69 18 152/67 94 12/05/16 18:00 65 12/05/16 17:00 77 12/05/16 16:08 66 12/05/16 16:08 97.9 73 16 71/ 97 12/05/16 15:00 78 12/05/16 14:12 68 12/05/16 14:03 95 12/05/16 13:00 79 12/05/16 12:16 97.5 65 20 125/62 98 12/05/16 12:16 65 Result Diagram: 12/05/1672412/05/16724 Imaging: Last Impressions Chest CT 12/05/16 0000 Signed Impressions: Service Date/Time: Monday, December 05, 2016 11:08 - CONCLUSION: 1. Small bilateral pleural effusions. 2. Bibasilar atelectasis. 3. 5 mm pulmonary nodule left lung base. This is nonspecific. Recommend followup noncontrast CT thorax in 6 months to check stability. Hudson Lamar MD Chest X-Ray 11/29/16 0600 Signed Impressions: Service Date/Time: Tuesday, November 29, 2016 04:05 - CONCLUSION: Improving aeration in the left lower lung with some mild patchy residual non- consolidative infiltrates. Billy Ortiz MD Renal Ultrasound 11/27/16 0000 Signed Impressions: Service Date/Time: Sunday, November 27, 2016 10:02 - CONCLUSION: 1. Unremarkable ultrasound examination of the kidneys. Amarjit Lua MD Lower Extremity Ultrasound 11/27/16 0000 Signed Impressions: Service Date/Time: Sunday, November 27, 2016 09:38 - CONCLUSION: Negative for deep venous thrombosis. Jeff Pringle MD FACR Cardiovascular: RRR Telemetry: NSR Pulmonary: Decreased BS bilat GI/: NABS, NT Plan: The patient had PFTs and his FEV1 is 0.8 liters. His new STS Risk is as follows: RISK SCORES About the STS Risk Calculator Procedure: AV Replacement + CAB Risk of Mortality: 11.449% Morbidity or Mortality: 44.326% Long Length of Stay: 30.772% Short Length of Stay: 8.129% Permanent Stroke: 2.739% Prolonged Ventilation: 35.019% DSW Infection: 0.732% Renal Failure: 12.713% Reoperation: 17.761% He also is frail and deconditioned having been intubated twice with a h/o sacral decubitus. He is a poor operative candidate for open AVR/CABG. I discussed this with him and his family and will pursue possible transfer to [facility] for consideration of TAVR + PCI. The patient agrees to proceed with this plan. (1) NSTEMI (non-ST elevated myocardial infarction) Plan: Cont aggressive medical management Pending CABG and AVR (2) Aortic stenosis, severe (3) Aortic regurgitation (4) Septic shock (5) PNA (pneumonia) (6) Respiratory failure (7) LBBB (left bundle branch block) (8) CONSTANTIN (acute kidney injury) Britt Haji MD Dec 06, 2016 11:47
--- NOTE | 2016-12-06 12:29 | PD.CARD.PN ---
Subjective Subjective Remarks no complaints no overnight events Objective Medications Current Medications Medications (Trade) Dose Ordered Sig/Lopez Route Start Time Stop Time Status Last Admin (Lipitor) 80 mg HS PO 11/26/16 21:00 12/05/16 20:42 (Tylenol) 650 mg Q6H PRN PO 11/26/16 19:00 12/04/16 16:45 (Tears Naturale Opth Soln) 1 drop TID EACH EYE 11/27/16 09:00 12/06/16 08:42 Miscellaneous Information 1 Q361D XX 11/26/16 19:00 11/26/16 19:00 (Chlorhexidine 2% Cloth) Taper DAILY@04 TOP 11/27/16 04:00 11/23/17 03:59 12/03/16 04:00 (Chlorhexidine 2% Cloth) 3 pack UNSCH PRN TOP 11/26/16 19:00 (Peridex 0.12% Liq) 15 ml BID@08,20 MT 11/27/16 08:00 12/04/16 20:00 (D50w (Vial) Inj) 25 ml UNSCH PRN IV PUSH 11/27/16 08:15 (Glucagon Inj) 1 mg UNSCH PRN OTHER 11/27/16 08:15 (Ecotrin Ec) 81 mg DAILY PO 11/28/16 09:00 12/06/16 08:42 (Trandate Inj) 10 mg Q1HR PRN IV PUSH 11/28/16 19:00 (Apresoline Inj) 10 mg Q1HR PRN IV PUSH 11/28/16 19:00 12/03/16 19:14 (Nitroglycerin 2% Oint) 2 inch Q6HR PRN TOPICAL 11/28/16 19:00 (Coreg) 6.25 mg Q12HR PO 11/28/16 21:00 12/06/16 08:42 (Lasix Inj) 20 mg DAILY IV PUSH 12/02/16 09:00 12/06/16 08:42 (Colace) 100 mg Q12HR PRN PO 12/02/16 09:30 12/05/16 20:42 (Ativan Inj) 1 mg Q4H PRN IV PUSH 12/02/16 09:30 12/04/16 03:29 (Heparin Inj) 5,000 units Q8HR SQ 12/04/16 14:00 12/06/16 06:19 (NS Flush) 2 ml BID IVF 12/04/16 21:00 12/06/16 08:41 (NS Flush) 2 ml UNSCH PRN IVF 12/04/16 11:30 (Protonix) 40 mg DAILY PO 12/05/16 09:00 12/06/16 08:42 Vital Signs / I&O Vital Signs Date Time Temp Pulse Resp B/P Pulse Ox O2 Delivery O2 Flow Rate FiO2 12/06/16 11:23 98.0 62 18 122/54 94 12/06/16 11:22 62 12/06/16 11:22 94 Room Air 12/06/16 07:37 98.5 61 18 159/65 93 12/06/16 07:37 62 12/06/16 07:36 93 Room Air 12/06/16 07:26 94 21 12/06/16 03:00 97.8 61 18 141/70 93 12/06/16 03:00 93 Room Air 12/06/16 03:00 58 12/05/16 23:00 68 12/05/16 23:00 93 Room Air 12/05/16 23:00 98.1 67 18 123/58 93 12/05/16 21:30 21 12/05/16 19:00 71 12/05/16 19:00 94 Room Air 12/05/16 19:00 71 12/05/16 19:00 98.3 69 18 152/67 94 12/05/16 18:00 65 12/05/16 17:00 77 12/05/16 16:08 66 12/05/16 16:08 97.9 73 16 71/ 97 12/05/16 15:00 78 12/05/16 14:12 68 12/05/16 14:03 95 12/05/16 13:00 79 I/O 12/05/16 12/05/16 12/05/16 12/06/16 12/06/16 12/06/16 07:00 15:00 23:00 07:00 15:00 23:00 Intake Total 482 ml 480 ml 240 ml Output Total 650 ml 1200 ml 450 ml Balance -168 ml -720 ml -210 ml Intake Oral 480 ml 480 ml 240 ml IV Total 2 ml Output Urine Total 650 ml 1200 ml 450 ml # Bowel Movements 0 1 0 Physical Exam GENERAL: Well-nourished, well-developed patient. SKIN: Warm and dry. HEAD: Normocephalic. EYES: No scleral icterus. No injection or drainage. NECK: Supple, trachea midline. No JVD or lymphadenopathy. CARDIOVASCULAR: Regular rate and rhythm RESPIRATORY: Breath sounds equal bilaterally. No accessory muscle use. GASTROINTESTINAL: Abdomen soft, non-tender, nondistended. EXTREMITIES: No cyanosis, or edema. NEUROLOGICAL: Awake, alert, and oriented x 3. Non-focal. Assessment and Plan Problem List: (1) NSTEMI (non-ST elevated myocardial infarction) Assessment and Plan: Awaiting TAVR and PCI Continue aggressive medical management for CAD Dr. Hassan will be back in service in AM (2) Aortic stenosis, severe (3) Aortic regurgitation (4) Septic shock (5) PNA (pneumonia) (6) Respiratory failure (7) LBBB (left bundle branch block) (8) CONSTANTIN (acute kidney injury) Anthony Barnett MD Dec 06, 2016 12:29
--- NOTE | 2016-12-06 12:50 | MB ---
cc: BRITT HAJI DATE OF CONSULTATION: 12/04/2016 DATE OF : 1930 HISTORY OF PRESENT ILLNESS This gentleman apparently has been visiting his sister. He recently lost his a month ago. He resides in [place], [place] and has been down here since the beginning of November visiting his sister. Apparently he had trouble getting out of a chair and became short of breath. She called 911. He was significantly tachypneic, placed on BiPAP and then intubated. Initial EKG showed a left bundle branch block and they called a STEMI Alert. He apparently had not been feeling well for the last couple of days. He never complained to her of any fever or chills. It was noted on admission that he was treated for sepsis, UTI Klebsiella and bilateral pneumonia with IV antibiotics. Initial lactic acid was 2.6. He underwent an echocardiogram which showed an EF of 40-45%, systolic function moderately reduced. Aortic valve showed a valve area of 0.83, severe stenosis and severe regurgitation. The mitral valve had moderately to severely calcified annulus. The tricuspid valve showed some mild regurgitation. The patient was able to be successfully extubated and transferred to the step-down unit where I spoke to him. He underwent a cardiac cath today which showed an EF of 45%, left main disease 10%, proximal LAD 50%, mid distal LAD 60-70%, diagonal 80%, circumflex 20%, OM 20%. We were consulted to evaluate for aortic valve replacement with possible coronary artery bypass grafting to the distal LAD and possible diagonal and circumflex. PAST MEDICAL HISTORY 1. Peripheral arterial disease. 2. COPD. PAST SURGICAL HISTORY 1. Fem-fem bypass. 2. Abdominal aortic aneurysm endovascular repair [address] [facility] in [place]. 3. Sacral debridement after he fractured his left hip where he had left hip surgery and therapy also about 5 years ago. He has a scar in the sacral area and no further decubitus at the time. ALLERGIES No known allergies. MEDICATIONS Current medications include: 1. Heparin 5000 q.8h. 2. Protonix. 3. Colace. 4. Lasix 20, daily. 5. Coreg 6.25 b.i.d. 6. Aspirin 81, daily. 7. Lipitor 80, p.o. q.h.s. FAMILY HISTORY Mother at 84 with some osteoporosis. Father from cancer and an OK at age 63. SOCIAL HISTORY The patient recently . No children. Drinks two vodka drinks per night. Smoked for 20 years, quit 15 years ago. Lives alone. Retired from the [employer]. REVIEW OF SYSTEMS GENERAL: In general no night sweats, fever, heat or cold intolerance. SKIN: No psoriasis, itching or hives. HEENT: No blurred vision or hearing loss. RESPIRATORY: Positive for recent shortness of breath. CARDIOVASCULAR: Denies having any chest pain, paroxysmal nocturnal dyspnea or orthopnea. GASTROINTESTINAL: No diarrhea or vomiting. GENITOURINARY: No burning, frequency, urgency. FREIGHT FLAGMAN: No history of TIA, CVA, seizure disorder. ENDOCRINE: No history of diabetes or hypothyroidism. PHYSICAL EXAMINATION VITAL SIGNS: Blood pressure 130/60, heart rate 68, temperature max 97.7. GENERAL: The patient is awake, alert, sitting on the side of the bed. HEENT: Head is normocephalic, atraumatic. Pupils equal and reactive. Oral mucosa pink, moist. NECK: Supple. No JVD. HEART: Heart sounds S1, S2, regular rate and rhythm with a grade 3/6 systolic murmur. LUNGS: Diminished in the bases, otherwise clear to auscultation. No wheezes, rales or rhonchi. ABDOMEN: Soft, nontender. No masses or organomegaly. EXTREMITIES: No cyanosis, clubbing or edema. He does have palpable distal pulses. Skin is somewhat dry. He has some chronic venous stasis to the lower extremities. LABORATORY DATA Hemoglobin 14, hematocrit 38, white cell count 11, platelet count 154. Sodium 143, potassium 3.7, BUN 25, creatinine 0.84. Hemoglobin A1c 4.6. Troponin was greater than 40. Urine did show Klebsiella. MRSA screen negative. Blood cultures are negative x5 days from the . Sputum was unremarkable. IMAGING DATA Chest x-ray shows some improved areas in the left lower lobe, some patchy residual opacities, no consolidation. Lower extremity ultrasound showed no DVT. Renal ultrasound was unremarkable. IMPRESSION An 86-year-old male. Activities at home include driving himself, working in his yard, golfing. He uses a walker for balance. The patient has a history of known heart murmur with echo showing severe aortic regurgitation and stenosis with a valve area of 0.83. Also, coronary artery disease involving the distal LAD with 60-70%, diagonal 80%, OM 70%. PLAN The cardiac films will be evaluated by Dr. Britt Haji to evaluate for possible surgery. STS data will be discussed with the patient. The patient would be increased risk for surgery due to his advanced age. Pending evaluation of the cardiac films and evaluation by Dr. Haji for possible surgery which would be done next week. Dictated by: RHINA Lobo MD ELISA Acuna/GLENNA /4:13 PM /12:49 PM
[2016-12-06] MEDS: ATORVASTATIN 80 MG TAB PO SCH (19:37)
[2016-12-06 21:04] LABS: MEAN CORPUSCULAR HGB CONC 36.3 % (32.0-36.0)
[2016-12-07 03:00] VITALS: BP 177/81; PULSE 57; PULSE 70; RESP 18; TEMP 98.1; O2SAT 97
[2016-12-07] MEDS: CHLORHEXIDINE GLUCONATE 2 % 1 PACK (2 CLOTHS) TOP SCH (04:00)
[2016-12-07 05:30] LABS: HEMATOCRIT 36.7 % (39.0-51.0); MEAN CELL VOLUME 95.2 FL (80.0-100.0); MEAN CORPUSCULAR HEMOGLOBIN 34.5 PG (27.0-34.0); PLATELET COUNT 166 TH/MM3 (150-450); RED BLOOD COUNT 3.86 MIL/MM3 (4.50-5.90); RED CELL DISTRIBUTION WIDTH 13.4 % (11.6-17.2); WHITE BLOOD COUNT 10.5 TH/MM3 (4.0-11.0)
[2016-12-07 05:38] LABS: REVIEW FLAG FINAL
[2016-12-07] MEDS: HEPARIN SODIUM - SQ 10,000 UNITS/ML VIAL SQ SCH (05:38)
[2016-12-07 06:08] LABS: POTASSIUM 3.8 MEQ/L (3.5-5.1)
[2016-12-07] MEDS: INSULIN NovoLIN REGULAR SUPPLEMENTAL SCALE SQ SCH (06:32)
[2016-12-07 08:00] VITALS: BP 154/69; PULSE 72; RESP 20; TEMP 97.6; O2SAT 95
[2016-12-07] MEDS: CHLORHEXIDINE 0.12% (ORAL KIT) 15 ML CUP MT SCH (08:00)
[2016-12-07] MEDS: SODIUM CHLORIDE 0.9% FLUSH 5 ML FLUSH IVF SCH (08:37)
[2016-12-07] MEDS: CARVEDILOL 6.25 MG TAB PO SCH (08:38)
[2016-12-07] MEDS: ARTIFICIAL TEARS OPTH SOLN 15 ML BTL EACH EYE SCH (08:38)
[2016-12-07] MEDS: ASPIRIN EC 81 MG TABEC PO SCH (08:38)
[2016-12-07] MEDS: FUROSEMIDE 20 MG/2 ML VIAL IV PUSH SCH (08:38)
[2016-12-07] MEDS: PANTOPRAZOLE SOD 40 MG DELAYED RELEASE TAB PO SCH (08:38)
[2016-12-07] MEDS ORDERED: CARV6.25 PO (09:12)
[2016-12-07] MEDS ORDERED: ASPI81TA11 PO (09:12)
[2016-12-07] MEDS ORDERED: LIPI80TA PO (09:12)
[2016-12-07 09:21] VITALS: O2SAT 95
--- NOTE | 2016-12-07 09:28 | HHI.DS ---
Discharge Summary Admission Date Nov 26, 2016 at 18:51 Discharge Date: Dec 07, 2016 Admitting Diagnosis Septic shock (1) NSTEMI (non-ST elevated myocardial infarction) ICD Code: I21.4 (2) Septic shock ICD Code: A41.9 (3) LBBB (left bundle branch block) ICD Code: I44.7 (4) Respiratory failure ICD Code: J96.90 (5) PNA (pneumonia) ICD Code: J18.9 (6) CONSTANTIN (acute kidney injury) ICD Code: N17.9 (7) Aortic stenosis, severe ICD Code: I35.0 Procedures Intubation/Extubation Heart cath Brief History - From Admission The patient is a 86-year-old male who presented with a medical history significant for peripheral artery disease and COPD who presented to the emergency room with worsening shortness of breath that started at 3 PM on the day off. STEMI was called because of LBBB and unknown duration. Patient denied any chest pain but was very tachypneic. He went into respiratory failure and required emergent intubation in the emergency room. The patient was admitted to the critical care service. CBC/BMP: 12/07/16 0508 12/07/16 0508 Significant Findings Laboratory Tests Test 12/05/16 12/07/16 07:25 05:08 White Blood Count 12.0 TH/MM3 (4.0-11.0) Red Blood Count 4.03 MIL/MM3 3.86 MIL/MM3 (4.50-5.90) (4.50-5.90) Hematocrit 38.9 % 36.7 % (39.0-51.0) (39.0-51.0) Neutrophils (%) (Auto) 78.6 % (16.0-70.0) Lymphocytes (%) (Auto) 8.4 % (9.0-44.0) Monocytes (%) (Auto) 11.3 % (0.0-8.0) Neutrophils # (Auto) 9.4 TH/MM3 (1.8-7.7) Monocytes # (Auto) 1.4 TH/MM3 (0-0.9) Blood Urea Nitrogen 27 MG/DL (7-18) 31 MG/DL (7-18) Estimat Glomerular Filtration 78 ML/MIN (>89) Rate Mean Corpuscular Hemoglobin 34.5 PG (27.0-34.0) Mean Corpuscular Hemoglobin 36.3 % Concent (32.0-36.0) Imaging Last Impressions Chest CT 12/05/16 0000 Signed Impressions: Service Date/Time: Monday, December 05, 2016 11:08 - CONCLUSION: 1. Small bilateral pleural effusions. 2. Bibasilar atelectasis. 3. 5 mm pulmonary nodule left lung base. This is nonspecific. Recommend followup noncontrast CT thorax in 6 months to check stability. Hudson Lamar MD Chest X-Ray 11/29/16 0600 Signed Impressions: Service Date/Time: Tuesday, November 29, 2016 04:05 - CONCLUSION: Improving aeration in the left lower lung with some mild patchy residual non- consolidative infiltrates. Billy Ortiz MD Renal Ultrasound 11/27/16 0000 Signed Impressions: Service Date/Time: Sunday, November 27, 2016 10:02 - CONCLUSION: 1. Unremarkable ultrasound examination of the kidneys. Amarjit Lua MD Lower Extremity Ultrasound 11/27/16 0000 Signed Impressions: Service Date/Time: Sunday, November 27, 2016 09:38 - CONCLUSION: Negative for deep venous thrombosis. Jeff Pringle MD FACR PE at Discharge GENERAL: This is a well-nourished, well-developed patient in no acute distress. CARDIOVASCULAR: Normal rate and regular rhythm. 2/6 SUMIT, more pronounced at the LUSB. RESPIRATORY: Good respiratory efforts. Breath sounds equal and clear to auscultation bilaterally. GASTROINTESTINAL: Abdomen soft, non-tender, non-distended. Normal active bowel sounds MUSCULOSKELETAL: Extremities without cyanosis, or edema. NEURO: Alert & Oriented x4 to person, place, time, situation. Moves all ext x4 PSYCH: Appropriate mood and affect. Transfer Summary See Hospital course. Pt update on day of discharge Patient reports that he is feeling well. No increased in shortness of breath. No chest pain or chest pressure. He is being transferred to [facility] per CT surgery recommendations. Hospital Course 86-year-old male initially admitted with acute hypoxemic respiratory failure. Evaluation and treatment course detailed below: Acute hypoxemic respiratory failure likely due to combination of pneumonia and decompensated aortic stenosis. History of COPD. -the patient was emergently intubated in the emergency room. His condition improved. He was weaned off the vent and ultimately weaned down to room air. Patient was treated with IV Solu-Medrol, breathing treatments and he completed a course of antibiotics with Vancomycin, Zosyn, and Azithromycin. - Ativan PRN anxiety which contributes to hyperventilation. -Steroids were tapered and discontinued. CAD/Severe aortic stenosis/CHF: - The patient was followed by cardiology. He was initially started on heparin, IV lasix, Plavix, and aspirin. He underwent heart catheterization which revealed multivessel disease. Plavix and heparin discontinued in anticipation for surgery. Cardiothoracic surgery was consulted for possible CABG and aortic valve replacement. His 2-D echo showed severe aortic stenosis and regurgitation. LVEF reduced to 40-45%. - The patient was evaluated by cardiothoracic surgery, Dr. Landa. He was deemed to be a poor operative candidate for open AVR/CABG. He recommended transfer to [facility] for consideration of TAVR + PCI. The patient agrees to proceed with this plan. Dr. Sanchez is the accepting physician at [facility]. History of sacral decubitus ulcer Decubitus prevention per protocol. Pt Condition on Discharge: Stable Discharge Disposition: Trnsfr to Other Facility Discharge Time: > 30 minutes Discharge Instructions DIET: Follow Instructions for: Heart Healthy Diet New Medications: Aspirin DR (Aspirin EC) 81 Mg Tabdr 81 MG PO DAILY #30 TAB Atorvastatin (Lipitor) 80 Mg Tab 80 MG PO HS #30 TAB Carvedilol (Coreg) 6.25 Mg Tab 6.25 MG PO Q12HR #30 TAB Joy Brown MD Dec 07, 2016 09:28 Joy Brown MD Dec 07, 2016 09:28
--- NOTE | 2016-12-07 09:35 | PD.CARD.PN ---
Subjective Subjective Remarks No chest pain, no shortness of breath Objective Medications Current Medications Medications (Trade) Dose Ordered Sig/Lopez Route Start Time Stop Time Status Last Admin (Lipitor) 80 mg HS PO 11/26/16 21:00 12/06/16 19:37 (Tylenol) 650 mg Q6H PRN PO 11/26/16 19:00 12/04/16 16:45 (Tears Naturale Opth Soln) 1 drop TID EACH EYE 11/27/16 09:00 12/07/16 08:38 Miscellaneous Information 1 Q361D XX 11/26/16 19:00 11/26/16 19:00 (Chlorhexidine 2% Cloth) Taper DAILY@04 TOP 11/27/16 04:00 11/23/17 03:59 12/03/16 04:00 (Chlorhexidine 2% Cloth) 3 pack UNSCH PRN TOP 11/26/16 19:00 (Peridex 0.12% Liq) 15 ml BID@08,20 MT 11/27/16 08:00 12/04/16 20:00 (D50w (Vial) Inj) 25 ml UNSCH PRN IV PUSH 11/27/16 08:15 (Glucagon Inj) 1 mg UNSCH PRN OTHER 11/27/16 08:15 (Ecotrin Ec) 81 mg DAILY PO 11/28/16 09:00 12/07/16 08:38 (Trandate Inj) 10 mg Q1HR PRN IV PUSH 11/28/16 19:00 (Apresoline Inj) 10 mg Q1HR PRN IV PUSH 11/28/16 19:00 12/03/16 19:14 (Nitroglycerin 2% Oint) 2 inch Q6HR PRN TOPICAL 11/28/16 19:00 (Coreg) 6.25 mg Q12HR PO 11/28/16 21:00 12/07/16 08:38 (Lasix Inj) 20 mg DAILY IV PUSH 12/02/16 09:00 12/07/16 08:38 (Colace) 100 mg Q12HR PRN PO 12/02/16 09:30 12/05/16 20:42 (Ativan Inj) 1 mg Q4H PRN IV PUSH 12/02/16 09:30 12/04/16 03:29 (Heparin Inj) 5,000 units Q8HR SQ 12/04/16 14:00 12/07/16 05:38 (NS Flush) 2 ml BID IVF 12/04/16 21:00 12/07/16 08:37 (NS Flush) 2 ml UNSCH PRN IVF 12/04/16 11:30 (Protonix) 40 mg DAILY PO 12/05/16 09:00 12/07/16 08:38 Vital Signs / I&O Vital Signs Date Time Temp Pulse Resp B/P Pulse Ox O2 Delivery O2 Flow Rate FiO2 12/07/16 09:21 95 21 12/07/16 08:00 95 Room Air 12/07/16 08:00 72 12/07/16 08:00 97.6 72 20 154/69 95 12/07/16 03:00 57 12/07/16 03:00 97 Room Air 12/07/16 03:00 98.1 70 18 177/81 97 12/06/16 23:00 98.5 72 18 145/67 94 12/06/16 23:00 59 12/06/16 23:00 94 Room Air 12/06/16 22:56 21 12/06/16 19:00 68 12/06/16 19:00 95 Room Air 12/06/16 19:00 98.4 66 17 158/67 95 12/06/16 15:07 68 12/06/16 15:07 94 Room Air 12/06/16 15:06 97.9 68 18 141/67 94 12/06/16 11:23 98.0 62 18 122/54 94 12/06/16 11:22 62 12/06/16 11:22 94 Room Air I/O 12/06/16 12/06/16 12/06/16 12/07/16 12/07/16 12/07/16 07:00 15:00 23:00 07:00 15:00 23:00 Intake Total 240 ml 1100 ml 480 ml Output Total 450 ml 1050 ml 750 ml Balance -210 ml 50 ml -270 ml Intake Oral 240 ml 1100 ml 480 ml IV Total 0 ml Output Urine Total 450 ml 1050 ml 750 ml # Voids 1 # Bowel Movements 0 2 1 Physical Exam GENERAL: NAD, comfortable SKIN: Warm and dry. HEAD: Atraumatic. Normocephalic. EYES: Pupils equal and round. No scleral icterus. No injection or drainage. ENT: No nasal bleeding or discharge. Mucous membranes pink and moist. NECK: Trachea midline. No JVD. CARDIOVASCULAR: Regular rate and rhythm. 2/6 mid to late peaking crescendo- decrescendo murmur to the RSB RESPIRATORY: CTA B/L GASTROINTESTINAL: Abdomen soft, non-tender, nondistended. Hepatic and splenic margins not palpable. MUSCULOSKELETAL: Extremities without clubbing, cyanosis, or edema. No obvious deformities. NEUROLOGICAL: Awake and alert. No obvious cranial nerve deficits. Motor grossly within normal limits. Five out of 5 muscle strength in the arms and legs. Normal speech. PSYCHIATRIC: Appropriate mood and affect; insight and judgment normal. Laboratory Laboratory Tests Test 12/07/16 05:08 White Blood Count 10.5 TH/MM3 Red Blood Count 3.86 MIL/MM3 Hemoglobin 13.3 GM/DL Hematocrit 36.7 % Mean Corpuscular Volume 95.2 FL Mean Corpuscular Hemoglobin 34.5 PG Mean Corpuscular Hemoglobin 36.3 % Concent Red Cell Distribution Width 13.4 % Platelet Count 166 TH/MM3 Mean Platelet Volume 8.6 FL Sodium Level 142 MEQ/L Potassium Level 3.8 MEQ/L Chloride Level 104 MEQ/L Carbon Dioxide Level 31.0 MEQ/L Anion Gap 7 MEQ/L Blood Urea Nitrogen 31 MG/DL Creatinine 0.82 MG/DL Estimat Glomerular Filtration 89 ML/MIN Rate Random Glucose 106 MG/DL Calcium Level 8.8 MG/DL Assessment and Plan Problem List: (1) NSTEMI (non-ST elevated myocardial infarction) (2) Aortic stenosis, severe (3) Aortic regurgitation (4) Septic shock (5) PNA (pneumonia) (6) Respiratory failure (7) LBBB (left bundle branch block) (8) CONSTANTIN (acute kidney injury) Assessment and Plan 1) Sepsis from bilaterally PNA 2) ASA/Coreg/Lipitor... Plavix was stopped for consideration of CT Surgery, but will be transferred for TAVR/PCI, will allow them to load with their preference 3) Severe with severe AR most likely part of his decompensation on admission 4) Mod-severe CAD with LAD/Diag/OM lesions 5) Discussed with CT surgery about possible AVR + CABG, but due to comorbidities will be transferred for TAVR/PCI Cole Hassan DO Dec 07, 2016 09:35
--- NOTE | 2016-12-07 11:29 | PD.CAR.PN ---
CVT Progress Note Subjective/Hospital Course: consultation dictated sts data discussed with RISK SCORES About the STS Risk Calculator Procedure: AV Replacement + CAB Risk of Mortality: 7.125% Morbidity or Mortality: 34.556% Long Length of Stay: 19.904% Short Length of Stay: 11.758% Permanent Stroke: 2.772% Prolonged Ventilation: 24.181% DSW Infection: 0.733% Renal Failure: 9.509% Reoperation: 14.844% 12/05/16 Patient seen and evaluated. He has no complaints currently. He has not been out of bed or ambulated much since admission. 12/06/16 no significant changes overnight 12/07 waiting on transfer to [facility] high risk due to advanced age and pulm status Objective: GENERAL: SKIN: Warm and dry. HEAD: Normocephalic. EYES: No scleral icterus. No injection or drainage. NECK: Supple, trachea midline. No JVD or lymphadenopathy. CARDIOVASCULAR: 3/6 sm gallops, or rubs. RESPIRATORY: crackles in bases Breath sounds equal bilaterally. No accessory muscle use. GASTROINTESTINAL: Abdomen soft, non-tender, nondistended. MUSCULOSKELETAL: No cyanosis, or edema. BACK: Nontender without obvious deformity. No CVA tenderness. Vital Signs Date Time Temp Pulse Resp B/P Pulse Ox O2 Delivery O2 Flow Rate FiO2 12/07/16 09:21 95 21 12/07/16 08:00 95 Room Air 12/07/16 08:00 72 12/07/16 08:00 97.6 72 20 154/69 95 12/07/16 03:00 57 12/07/16 03:00 97 Room Air 12/07/16 03:00 98.1 70 18 177/81 97 12/06/16 23:00 98.5 72 18 145/67 94 12/06/16 23:00 59 12/06/16 23:00 94 Room Air 12/06/16 22:56 21 12/06/16 19:00 68 12/06/16 19:00 95 Room Air 12/06/16 19:00 98.4 66 17 158/67 95 12/06/16 15:07 68 12/06/16 15:07 94 Room Air 12/06/16 15:06 97.9 68 18 141/67 94 Labs: Laboratory Tests Test 12/07/16 05:08 White Blood Count 10.5 TH/MM3 (4.0-11.0) Red Blood Count 3.86 MIL/MM3 (4.50-5.90) Hemoglobin 13.3 GM/DL (13.0-17.0) Hematocrit 36.7 % (39.0-51.0) Mean Corpuscular Volume 95.2 FL (80.0-100.0) Mean Corpuscular Hemoglobin 34.5 PG (27.0-34.0) Mean Corpuscular Hemoglobin 36.3 % Concent (32.0-36.0) Red Cell Distribution Width 13.4 % (11.6-17.2) Platelet Count 166 TH/MM3 (150-450) Mean Platelet Volume 8.6 FL (7.0-11.0) Sodium Level 142 MEQ/L (136-145) Potassium Level 3.8 MEQ/L (3.5-5.1) Chloride Level 104 MEQ/L (98-107) Carbon Dioxide Level 31.0 MEQ/L (21.0-32.0) Anion Gap 7 MEQ/L (5-15) Blood Urea Nitrogen 31 MG/DL (7-18) Creatinine 0.82 MG/DL (0.60-1.30) Estimat Glomerular Filtration 89 ML/MIN (>89) Rate Random Glucose 106 MG/DL (74-106) Calcium Level 8.8 MG/DL (8.5-10.1) Result Diagram: 12/07/16 0508 12/07/16 0508 (1) NSTEMI (non-ST elevated myocardial infarction) Plan: Awaiting transfer to [facility] / TAVR and PCI Continue aggressive medical management for CAD (2) Aortic stenosis, severe (3) Aortic regurgitation (4) Septic shock (5) PNA (pneumonia) (6) Respiratory failure (7) LBBB (left bundle branch block) (8) CONSTANTIN (acute kidney injury) Blanquita Baltazar Dec 07, 2016 11:29
[2016-12-07] MEDS ORDERED: BACITRACIN OINT 0.9 GM PKT ONE (11:38)
[2016-12-07] MEDS ORDERED: IOHEXOL 350 MG/ML 10 ML VIAL (for RAD DIAG) IV ONE (11:43)
[2016-12-07 12:00] VITALS: BP 124/86; PULSE 64; RESP 20; TEMP 98.6; O2SAT 97
--- NOTE | 2016-12-07 14:44 | RADRPT ---
EXAM DATE/TIME: 12/07/2016 10:40 [place] COMPARISON: No previous studies available for comparison. INDICATIONS: Coronary artherosclerosis. Evaluate for transaortic valve replacement. IV CONTRAST: 100 cc Omnipaque 350 (iohexol) IV RADIATION DOSE: 10.89 CTDIvol (mGy) MEDICAL HISTORY: None SURGICAL HISTORY: None. ENCOUNTER: Initial ACUITY: 1 day PAIN SCALE: 0/10 LOCATION: Chest TECHNIQUE: Volumetric scanning was performed using a multi-row detector CT scanner. The data was post processed with a variety of visualization algorithms including full volume maximum intensity projection, multi -planar sliding thin slab reformation, curved planar reformation, and surface rendering techniques. Using automated exposure control and adjustment of the mA and/or kV according to patient size, radiat ion dose was kept as low as reasonably achievable to obtain optimal diagnostic quality images. FINDINGS: AORTIC ROOT AND VALVE: Calcification is moderate. Because of the heavy calcification visibility of separate sinuses is poor . Dense calcification is seen at the origin of the right coronary artery. There is minimal dilatati on at the origin of the left main with extensive calcification of the LAD and first diagonal. There is no evidence for a thoracic dissection. The thoracic aorta measures 3.5 cm in diameter at th e root and 3.7 cm in mid ascending aorta. The descending aorta is normal size. There is an infrarenal abdominal aortic stent graft with a larg e amount of mural thrombus in the stent graft proper with occlusion of the right femoral limb. There is a fem-fem that is providing run off to the right lower extremity. Extensive calcification is see n in the pauma external iliac and common femoral. There are no suspicious lung lesions identified. Trace bilateral pleural effusions are noted. The liver, spleen, pancreas, adrenals are unremarkable. There is symmetrical renal function. There is no ascites or adenopathy. There is no evidence for an endo leak. There is mild bladder distention. Prostate is large. Vena cava filter is evident. CONCLUSION: Extensive atherosclerotic vascular disease as described above with limited aortic measurements as cathie cribed above. There is no dissection. Aortic stent graft with findings as described above. Jeff Pringle MD FACR on December 07, 2016 at 14:08 Board Certified Radiologist. This report was verified electronically.
--- NOTE | 2016-12-21 13:09 | RSPPFT ---
DATE OF PROCEDURE: 12/05/16 COMMENTS: Spirometry demonstrates an FEV1 of 0.8 at 30% of predicted, FVC of 1.4 at 41%, FV1/FVC ratio is 56%. The FEF 25-75 is 18% of predicted. Flow volume loops suggest an obstructive pattern. Lung volumes were not completed. IMPRESSION: 1. Severe obstructive airways disease.
== END 2016-12-07 14:30 | disposition short-term general hospital (02) | DRG 871 ==
LOC: NEPC 16:31 → EDBD 18:51 → NEDA 18:51 → HIMN 22:05 → HCIS 12-04 09:00 → HCVR 12-05 18:33
PROVIDERS: ADMIT Internal Medicine Critical Care Medicine; ATTEND Family Medicine
PROC: 0BH17EZ Insertion of Endotracheal Airway into Trachea, Via Natural or Artificial Opening (ICD-10-PCS; principal; 2016-11-26)
PROC: 5A1945Z Respiratory Ventilation, 24-96 Consecutive Hours (ICD-10-PCS; 2016-11-26)
PROC: 02HV33Z Insertion of Infusion Device into Superior Vena Cava, Percutaneous Approach (ICD-10-PCS; 2016-11-26)
PROC: 4A023N7 Measurement of Cardiac Sampling and Pressure, Left Heart, Percutaneous Approach (ICD-10-PCS; 2016-12-04)
PROC: B2111ZZ Fluoroscopy of Multiple Coronary Arteries using Low Osmolar Contrast (ICD-10-PCS; 2016-12-04)
DX: A41.9 Sepsis, unspecified organism (principal); R65.21 Severe sepsis with septic shock; I21.4 Non-ST elevation (NSTEMI) myocardial infarction; J96.01 Acute respiratory failure with hypoxia; J18.9 Pneumonia, unspecified organism; D69.6 Thrombocytopenia, unspecified; N17.9 Acute kidney failure, unspecified; J44.0 Chronic obstructive pulmonary disease with (acute) lower respiratory infection; E87.2 Acidosis; J44.1 Chronic obstructive pulmonary disease with (acute) exacerbation; N39.0 Urinary tract infection, site not specified; E83.42 Hypomagnesemia; I50.9 Heart failure, unspecified; I44.7 Left bundle-branch block, unspecified; I35.2 Nonrheumatic aortic (valve) stenosis with insufficiency; I73.9 Peripheral vascular disease, unspecified; I25.10 Atherosclerotic heart disease of native coronary artery without angina pectoris; E83.51 Hypocalcemia; R73.9 Hyperglycemia, unspecified; E87.6 Hypokalemia; F41.9 Anxiety disorder, unspecified; B96.1 Klebsiella pneumoniae [K. pneumoniae] as the cause of diseases classified elsewhere; Z87.891 Personal history of nicotine dependence
CPT/HCPCS: 36556; 36600; 71010; 71250; 71275; 74174; 76775; 80048; 80053; 80061; 80202; 81001; 82550; 82552; 82565; 82570; 82805; 82948; 83036; 83605; 83735; 83880; 84100; 84132; 84300; 84443; 84484; 85007; 85025; 85027; 85610; 85730; 87040; 87070; 87077; 87086; 87186; 87205; 87449; 87641; 93005; 93306; 93454; 93970; 94002; 94003; 94010; 94150; 94640; 94664; 96365; 96366; 96368; 96374; 96375; C1769; C1893; J0153; J0171; J0330; J0360; J0456; J0461; J0610; J1644; J1940; J2060; J2250; J2543; J2920; J3010; J3370; J3475; J3480; J7030; J7040; J7050; J7512; P9047; Q9967